=== PATIENT | male | born 1935 | race Caucasian/White ===

== ENCOUNTER 2017-09-16 21:21 | Inpatient (IN) | payer MEDICARE, OTHER ==
[~2017-09-16] VITALS: Ht 180.3 cm; Wt 91.2 kg
[2017-09-17] VITALS: BP 117/59
[2017-09-17] MEDS ORDERED: Norco 5mg/325mg tab ORAL PRN ×2 (02:15→08:15)
[2017-09-17] MEDS ORDERED: Azithromycin 500 MG in D5W 275 ML IV ONE (02:15)
[2017-09-17] MEDS ORDERED: Azithromycin 500mg Inj IV ONE (03:20)
[2017-09-17 04:00] VITALS: BP 104/60
[2017-09-17] MEDS ORDERED: ASPIRIN81 M3 PO (05:42)
[2017-09-17 08:00] VITALS: BP 103/67
[2017-09-17] MEDS ORDERED: BuPROPion SR 150mg tab ORAL SCH (09:00)
[2017-09-17 10:48] LABS: HEMATOCRIT 25.7 % (42.0-52.0); HEMOGLOBIN 8.6 G/DL (14.2-18.0); MEAN CORPUSCULAR VOLUME 94 FL (80-99); PLATELET COUNT 194 K/UL (150-450); RED BLOOD COUNT 2.74 M/UL (4.70-6.10); WHITE BLOOD COUNT 18.9 K/UL (4.8-10.8)
[2017-09-17] MEDS: Aspirin Baby 81mg ORAL SCH (10:51)
[2017-09-17 11:16] LABS: ALANINE AMINOTRANSFERASE 56 U/L (12-78); ALBUMIN 2.3 G/DL (3.4-5.0); ALBUMIN/GLOBULIN RATIO 0.5 (1.0-2.7); ALKALINE PHOSPHATASE 223 U/L (46-116); ANION GAP 9 mmol/L (5-15); ASPARTATE AMINO TRANSFERASE 66 U/L (15-37); BILIRUBIN,TOTAL 0.4 MG/DL (0.2-1.0); BLOOD UREA NITROGEN 53 mg/dL (7-18); CALCIUM 7.5 MG/DL (8.5-10.1); CARBON DIOXIDE 28 MMOL/L (21-32); CHLORIDE 100 MMOL/L (98-107); CREATININE 5.4 MG/DL (0.55-1.30); PHOSPHORUS 2.6 MG/DL (2.5-4.9); POTASSIUM 3.9 MMOL/L (3.5-5.1); SODIUM 136 MMOL/L (136-145)
[2017-09-17 12:00] VITALS: BP 110/63
[2017-09-17] MEDS ORDERED: Cefepime 1gm in D5W 55ml IVPB ONE (14:00)
[2017-09-17] MEDS: Heparin 5000 units/ml inj SUBQ SCH ×3 (14:00→20:53)
--- NOTE | 2017-09-17 15:10 | History & Physical ---
History and Physical History & Physicial Dictated for Int Med-Dr Mustafa no. [id number]. KARMA GUILLEN Sep 17, 2017 15:10
[2017-09-17 16:00] VITALS: BP 115/67
[2017-09-17] MEDS: BuPROPion XL 150mg tab ORAL SCH (17:56)
[2017-09-17] MEDS: Albuterol ud Inhalation HHN SCH ×2 (19:33→22:31)
[2017-09-17] MEDS ORDERED: GUAIFENESI100 MG/5 M ORAL (19:39)
[2017-09-17] MEDS ORDERED: RENVELA0.8 GM ORAL (19:39)
[2017-09-17] MEDS ORDERED: REFRESH TEARS15 ML OP (19:39)
[2017-09-17] MEDS ORDERED: TAMSULOSIN HCL0.4 MG ORAL (19:39)
[2017-09-17] MEDS ORDERED: DUONEB 0.5-3(2.53 ML HHN (19:39)
[2017-09-17] MEDS ORDERED: COSOPT1 DRO2 BOTH EYES (19:39)
[2017-09-17] MEDS ORDERED: BENZONATATE100 MG ORAL (19:39)
[2017-09-17] MEDS ORDERED: NON (19:39)
[2017-09-17] MEDS ORDERED: FAMOTIDINE20 MG ORAL (19:58)
[2017-09-17] MEDS ORDERED: ZEMPLAR1 MC1 ORAL (19:58)
[2017-09-17] MEDS ORDERED: BUPROPION XL150 MG ORAL (19:58)
[2017-09-17 20:00] VITALS: BP 108/67
--- NOTE | 2017-09-17 20:42 | Wound Care Consultation ---
Wound Assessment Wound Assessment : Wound Number: 1 Wound Present on Admission: Yes New Wound: No Status Change of Wound: No Wound Location Body Site Modif: left Wound Location Body Site: elbow Wound Type: traumatic injury Adilene Test: Does not Adilene Traumatic Injury Wounds: Skin Tear Wound Thickness: Partial Thickness Wound Length: 1.5 Wound Width: 3.0 Wound Depth: 0.1 Percent of Wound [place]/Red: 50 Percent of Wound Black/Brown: 50 - ry scab Wound Drainage Description: Serosanguineous Wound Drainage Amount: Scant Wound Drainage Odor: None/Absent Tissue Surrounding Wound: Erythemic Wound General Appearance: Reddened Wound Comment #1 Left elbow skin tear Recommendation -Local wound care per protocol -Keep clean and dry -Turn and reposition -Optimize nutrition -Offload both heels -Assess and f/u accordingly for any changes GHAZAL COLEMAN RN Sep 17, 2017 20:42
[2017-09-17] MEDS ORDERED: Tubing IV Secondary IV ONE (22:52)
[2017-09-17] MEDS ORDERED: NS 275ml ONE (22:52)
[2017-09-17] MEDS ORDERED: D5W 275ml ONE (22:52)
[2017-09-18] VITALS (7 sets, daily range): BP systolic 103–137; BP diastolic 55–92
--- NOTE | 2017-09-18 00:15 | History and Physical Report ---
DATE OF ADMISSION: 09/16/2017 CHIEF COMPLAINT: The patient is an 81-year-old, white male, who presents with chief complaint of shortness of breath and cough. HISTORY OF PRESENT ILLNESS: The patient was admitted to [facility] in August 2017. The patient was diagnosed with end-stage renal disease. The patient was started on hemodialysis. The patient has a Port-A-Cath in the right upper chest in place. The patient was a resident of [facility] [place]. The patient was undergoing therapy there. The patient began to experience extreme shortness of breath yesterday 09/16/2017. The patient also had a cough. The patient had hemodialysis scheduled yesterday 09/16/2017. The patient became hypotensive during dialysis. The patient was transported initially to [facility] emergency room. The patient was found to have a left lower lobe pneumonia. The patient is admitted to [facility] for insurance purposes. The patient is admitted for left lower lobe pneumonia. PAST MEDICAL HISTORY: Significant for: 1. Hypertension. 2. Newly diagnosed end-stage renal disease, on hemodialysis since mid August. PAST SURGICAL HISTORY: The patient denies. CURRENT MEDICATIONS: 1. Blood pressure medication of unknown dose. 2. Aspirin 81 mg one tablet p.o. daily. ALLERGIES: Ciprofloxacin. SOCIAL HISTORY: The patient is . The patient denies tobacco use having quit 30 years previously. The patient admits to rare alcohol use. The patient lives with his adult son. 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 REVIEW OF SYSTEMS: CONSTITUTIONAL: The patient denies weight loss or weight gain. The patient denies fevers or chills. HEENT: The patient denies ear or throat pain. The patient denies headache. CARDIOVASCULAR: The patient denies palpitations or chest pain. CHEST: The patient complains of shortness of breath as above. The patient denies wheezes. ABDOMEN: The patient denies nausea, vomiting, diarrhea, or constipation. GENITOURINARY: The patient denies dysuria or increased frequency of urination. NEUROMUSCULAR: The patient denies seizures or generalized weakness. PHYSICAL EXAMINATION: VITAL SIGNS: Temperature 97.7, respirations 19, pulse 74, and blood pressure 117/59. GENERAL: The patient is a well-developed, well-nourished, white male, in no apparent distress. HEENT: Eyes, pupils are equal and responsive to light and accommodation. Extraocular movements are intact. NECK: Supple without lymphadenopathy. CHEST: Wheezes in the right and left lower lung leyva, otherwise, clear to auscultation bilaterally without wheezes or rales. CARDIOVASCULAR: Regular rhythm and rate. S1 and S2 are normal without murmurs, rubs, or gallops. ABDOMEN: Soft, nontender, and nondistended. Positive bowel sounds. No evidence of hepatosplenomegaly. Currently, no rebound or guarding noted. EXTREMITIES: Negative for clubbing, cyanosis, or edema. RECTAL: Refused. GENITAL: Refused. NEUROLOGIC: Cranial nerves II through XII are grossly intact without focal deficits. Motor strength is 5/5 bilaterally. Deep tendon reflexes are 2+ plantar. LABORATORY AND DIAGNOSTIC DATA: WBC elevated at 18.9, hemoglobin 8.6, hematocrit 25.7, and platelets 194,000. Sodium 136, potassium 3.9, chloride 100, CO2 28, BUN 53, creatinine 5.4 and glucose 146. Chest x-ray from [place] revealed left lower lobe pneumonia. A repeat chest x-ray is pending. ASSESSMENT: This is an 81-year-old white male: 1. Left lower lobe pneumonia. 2. Shortness of breath. 3. End-stage renal disease, on hemodialysis. 4. Leukocytosis. 5. Hypertension. 6. Depression. TREATMENT: 1. Shortness of breath/left lower lobe pneumonia. The patient has been started empirically on azithromycin and Rocephin. A repeat chest x-ray is pending. The patient has been started on albuterol nebulized q.4 h. for wheezing. 2. End-stage renal disease. A Nephrology consultation has been obtained with Dr. Quan. The patient has a right central line in place. The patient will require dialysis on 09/19/2017. 3. Leukocytosis, probably secondary to pneumonia as above. 4. Hypertension. The patient is currently hypotensive. 5. Depression. Continue Wellbutrin and Remeron. Harry Flores M.D. DR: JOZEF JOB#: [id number] CC:
[2017-09-18] MEDS: Albuterol ud Inhalation HHN SCH ×6 (02:59→22:39)
[2017-09-18] MEDS: Heparin 5000 units/ml inj SUBQ SCH ×3 (05:23→21:06)
[2017-09-18] MEDS ORDERED: Benzonatate 100mg Perles ORAL PRN (06:45)
[2017-09-18] MEDS ORDERED: Albuterol/Ipratropium 3ml neb HHN PRN (06:45)
[2017-09-18 07:21] LABS: HEMATOCRIT 25.5 % (42.0-52.0); HEMOGLOBIN 8.4 G/DL (14.2-18.0); MEAN CORPUSCULAR VOLUME 94 FL (80-99); PLATELET COUNT 226 K/UL (150-450); RED CELL DISTRIBUTION WIDTH 13.2 % (11.6-14.8); WHITE BLOOD COUNT 18.6 K/UL (4.8-10.8)
[2017-09-18 07:45] LABS: ANION GAP 9 mmol/L (5-15); BLOOD UREA NITROGEN 71 mg/dL (7-18); CALCIUM 7.7 MG/DL (8.5-10.1); CARBON DIOXIDE 27 MMOL/L (21-32); CHLORIDE 101 MMOL/L (98-107); CREATININE 6.4 MG/DL (0.55-1.30); POTASSIUM 4.5 MMOL/L (3.5-5.1); SODIUM 137 MMOL/L (136-145)
[2017-09-18] MEDS ORDERED: Aspirin Baby 81mg ORAL SCH (09:00)
[2017-09-18] MEDS ORDERED: Paricalcitol 1mcg cap ORAL SCH (09:00)
[2017-09-18] MEDS: Cosopt Opth Soln 10 mL Btl BOTH EYES SCH ×2 (10:39→17:36)
[2017-09-18] MEDS: BuPROPion XL 150mg tab ORAL SCH (10:39)
[2017-09-18] MEDS: Renvela 800mg Pkt ORAL SCH ×3 (10:39→17:36)
[2017-09-18] MEDS: Tamsulosin 0.4mg cap ORAL SCH ×2 (10:39→17:36)
[2017-09-18] MEDS: Azithromycin 250mg tab ORAL SCH (10:40)
[2017-09-18] MEDS: Aspirin Baby 81mg ORAL SCH (10:40)
--- NOTE | 2017-09-18 13:07 | Consultation ---
Consult Note Consult Note Asked to evaluate patient for dialysis management, The patient is an 81-year-old, white male, who presents with chief complaint of shortness of breath and cough. The patient was admitted to [facility] in August 2017. The patient was diagnosed with end-stage renal disease. The patient was started on hemodialysis. The patient has a Perma Cath in the right upper chest in place. The patient was a resident of [facility]. The patient was undergoing therapy there. The patient began to experience extreme shortness of breath yesterday 09/16/2017. The patient also had a cough. The patient had hemodialysis scheduled yesterday 09/16/2017. The patient became hypotensive during dialysis. The patient was transported initially to [facility] emergency room. The patient was found to have a left lower lobe pneumonia. The patient is admitted to [facility] for insurance purposes. The patient is admitted for left lower lobe pneumonia. PAST MEDICAL HISTORY: 1. Hypertension. 2. Newly diagnosed end-stage renal disease, on hemodialysis since mid August. patient interviewed and examined data reviewed Assessment/Plan status: - End-stage renal disease, on hemodialysis. - Left lower lobe pneumonia. - Leukocytosis. - Hypertension. - Depression. Plan; HD in am- Adjust BP meds FU with CS ROMEL Donis Sep 18, 2017 13:07
--- NOTE | 2017-09-18 13:40 | Internal Med Progress Note ---
Subjective Date of Service: Sep 18, 2017 Physician Name Karma Guillen Attending Physician Dung Mustafa MD Current Medications Medications (Trade) Dose Ordered Sig/Jessica Route PRN Reason Start Time Stop Time Status Last Admin Dose Admin Acetaminophen (Tylenol) 650 mg Q6H PRN ORAL Mild Pain/Temp > 100.5 09/17/17 02:15 10/17/17 02:14 Acetaminophen/ Hydrocodone Bitart ([place] 5/325) 1 tab Q6H PRN ORAL Severe Pain (Pain Scale 4-10) 09/17/17 08:15 09/24/17 08:14 Albuterol Sulfate (Proventil) 2.5 mg Q4HRT HHN 09/17/17 19:00 09/22/17 18:59 09/18/17 11:24 Albuterol/ Ipratropium (Albuterol/ Ipratropium) 3 ml EVERY 4 HOURS PRN HHN Shortness of breath 09/18/17 06:45 09/23/17 06:44 Artificial Tears (Akwa-Tears) 2 drop Q2H PRN BOTH EYES Dry Eyes 09/18/17 12:15 10/18/17 12:14 Aspirin (ASA) 81 mg DAILY ORAL 09/17/17 09:00 10/17/17 08:59 09/18/17 10:40 Azithromycin (Zithromax) 250 mg DAILY ORAL 09/18/17 09:00 09/21/17 09:01 09/18/17 10:40 Benzonatate (Tessalon Perles) 100 mg THREE TIMES A DAY PRN ORAL For Cough 09/18/17 06:45 10/18/17 06:44 Bupropion HCl (Wellbutrin XL) 150 mg DAILY ORAL 09/17/17 18:00 10/17/17 17:59 09/18/17 10:39 Cefepime HCl 500 mg/Dextrose 55 ml @ 110 mls/hr QHS IVPB 09/18/17 21:00 09/25/17 20:59 Docusate Sodium (Colace) 100 mg THREE TIMES A DAY ORAL 09/18/17 18:00 10/18/17 17:59 Dorzolamide/ Timolol (Cosopt) 1 drop BID BOTH EYES 09/18/17 09:00 10/18/17 08:59 09/18/17 10:39 Epoetin Jerod (Procrit (for ESRD on dialysis)) 10,000 units MON-WED-FRI SUBQ 09/18/17 21:00 10/18/17 20:59 UNV Famotidine (Pepcid) 20 mg DAILY ORAL 09/18/17 09:00 10/18/17 08:59 09/18/17 10:39 Heparin Sodium (Porcine) (Heparin 5000 units/ml) 5,000 units EVERY 8 HOURS SUBQ 09/17/17 14:00 10/17/17 13:59 09/18/17 05:23 Mirtazapine (Remeron) 15 mg BEDTIME ORAL 09/17/17 21:00 10/17/17 20:59 09/17/17 20:43 Ondansetron HCl (Zofran) 4 mg Q4H PRN IVP Nausea & Vomiting 09/17/17 02:15 10/17/17 02:14 Sevelamer Carbonate (Renvela) 800 mg THREE TIMES A DAY ORAL 09/18/17 09:00 10/18/17 08:59 09/18/17 10:39 Tamsulosin HCl (Flomax) 0.4 mg BID ORAL 09/18/17 09:00 10/18/17 08:59 09/18/17 10:39 Allergies: Coded Allergies: CIPROFLOXACIN (Verified Allergy, Unknown, 09/17/17) PENICILLINS (Verified Allergy, Unknown, 09/17/17) ROS Limited/Unobtainable: No Constitutional: Reports: no symptoms HEENT: Reports: no symptoms Cardiovascular: Reports: no symptoms Respiratory: Reports: shortness of breath Gastrointestinal/Abdominal: Reports: no symptoms Genitourinary: Reports: no symptoms Neurologic/Psychiatric: Reports: no symptoms Subjective 81 YO M with shortness of breath. Now pneumonia. Cover for Int Anthony-Dr Mustafa. Objective Last Vital Signs Date Time Temp Pulse Resp B/P (MAP) Pulse Ox O2 Delivery O2 Flow Rate FiO2 09/18/17 12:11 97.3 62 22 103/55 97 Nasal Cannula 2.0 09/18/17 11:36 21 General Appearance: WD/WN, no apparent distress, alert, mild distress EENT: PERRL/EOMI, normal ENT inspection, TMs normal Neck: non-tender, normal alignment, supple, normal inspection Cardiovascular: normal peripheral pulses, normal rate, regular rhythm, no gallop/murmur, no JVD Respiratory/Chest: chest wall non-tender, no respiratory distress, no accessory muscle use, crackles/rales, rhonchi - bilaterally, expiratory wheezing Abdomen: normal bowel sounds, non tender, soft, no organomegaly, no mass Extremities: normal range of motion 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, no motor/sensory deficits Skin: normal pigmentation, warm/dry Laboratory Tests Test 09/18/17 05:00 White Blood Count 18.6 K/UL (4.8-10.8) H Red Blood Count 2.70 M/UL (4.70-6.10) L Hemoglobin 8.4 G/DL (14.2-18.0) L Hematocrit 25.5 % (42.0-52.0) L Mean Corpuscular Volume 94 FL (80-99) Mean Corpuscular Hemoglobin 31.1 PG (27.0-31.0) H Mean Corpuscular Hemoglobin Concent 33.0 G/DL (32.0-36.0) Red Cell Distribution Width 13.2 % (11.6-14.8) Platelet Count 226 K/UL (150-450) Mean Platelet Volume 8.2 FL (6.5-10.1) Neutrophils (%) (Auto) % (45.0-75.0) Lymphocytes (%) (Auto) % (20.0-45.0) Monocytes (%) (Auto) % (1.0-10.0) Eosinophils (%) (Auto) % (0.0-3.0) Basophils (%) (Auto) % (0.0-2.0) Differential Total Cells Counted 100 Neutrophils % (Manual) 74 % (45-75) Lymphocytes % (Manual) 6 % (20-45) L Monocytes % (Manual) 16 % (1-10) H Eosinophils % (Manual) 0 % (0-3) Basophils % (Manual) 0 % (0-2) Band Neutrophils 4 % (0-8) Platelet Estimate Adequate Platelet Morphology Normal Hypochromasia 2+ Anisocytosis 1+ Spherocytes 1+ Sodium Level 137 MMOL/L (136-145) Potassium Level 4.5 MMOL/L (3.5-5.1) Chloride Level 101 MMOL/L (98-107) Carbon Dioxide Level 27 MMOL/L (21-32) Anion Gap 9 mmol/L (5-15) Blood Urea Nitrogen 71 mg/dL (7-18) H Creatinine 6.4 MG/DL (0.55-1.30) H Estimat Glomerular Filtration Rate mL/min (>60) Glucose Level 137 MG/DL (74-106) H Hemoglobin A1c Pending Calcium Level 7.7 MG/DL (8.5-10.1) L Phosphorus Level Pending Magnesium Level Pending Ferritin Pending Vitamin B12 Level Pending Folate Pending Microbiology Date/Time Source Procedure Growth Status 09/17/17 03:10 Nasal Nares Influenza Types A,B Antigen (ZACARIAS) - Final Complete Intake and Output 09/17/17 09/18/17 19:00 07:00 Intake Total 840 ml 300 ml Output Total 800 ml 550 ml Balance 40 ml -250 ml Intake Oral 840 ml 300 ml Output Urine Total 800 ml 550 ml Assessment/Plan Problem List: (1) Shortness of breath (2) ESRD (end stage renal disease) on dialysis (3) Leukocytosis Assessment & Plan: Improving. cont abx (4) HTN (hypertension) (5) Depression Assessment & Plan: Continue mirtazipime (6) Pneumonia Assessment & Plan: Continue cefepime and azithro. KARMA GUILLEN Sep 18, 2017 13:40
[2017-09-18 14:13] LABS: PHOSPHORUS 3.7 MG/DL (2.5-4.9)
[2017-09-18] MEDS ORDERED: Magnesium Citrate Liq Btl ORAL ONE (14:30)
[2017-09-18] MEDS: Artificial Tears 1.4% Op Soln BOTH EYES PRN (17:36)
[2017-09-18] MEDS: Docusate 100mg cap ORAL SCH (17:36)
[2017-09-18] MEDS: Epogen (for ESRD on dialysis) SUBQ SCH (21:02)
[2017-09-18] MEDS: Cefepime HCl 500 MG in D5W 55 ML IVPB SCH (21:03)
[2017-09-19] MEDS: Albuterol ud Inhalation HHN SCH ×6 (03:22→23:29)
[2017-09-19 04:00] VITALS: BP 137/68
[2017-09-19] MEDS: Heparin 5000 units/ml inj SUBQ SCH ×3 (05:01→22:28)
[2017-09-19 07:40] LABS: ANION GAP 10 mmol/L (5-15); BLOOD UREA NITROGEN 77 mg/dL (7-18); CARBON DIOXIDE 25 MMOL/L (21-32); CHLORIDE 101 MMOL/L (98-107); CHOLESTEROL 139 MG/DL (< 200); PHOSPHORUS 2.6 MG/DL (2.5-4.9); SODIUM 136 MMOL/L (136-145)
[2017-09-19 07:53] LABS: % IRON SATURATION 38 % (15-50); IRON 70 ug/dL (50-175); TOTAL IRON BINDING CAPACITY 184 ug/dL (250-450)
[2017-09-19 08:20] VITALS: BP 133/77
[2017-09-19] MEDS: Cosopt Opth Soln 10 mL Btl BOTH EYES SCH ×2 (09:57→17:47)
[2017-09-19] MEDS: BuPROPion XL 150mg tab ORAL SCH (09:58)
[2017-09-19] MEDS: Tamsulosin 0.4mg cap ORAL SCH ×2 (09:58→17:47)
[2017-09-19] MEDS: Aspirin Baby 81mg ORAL SCH (09:58)
[2017-09-19] MEDS: Docusate 100mg cap ORAL SCH ×3 (09:58→17:47)
[2017-09-19] MEDS: Azithromycin 250mg tab ORAL SCH (09:58)
[2017-09-19 11:45] VITALS: BP 142/70
[2017-09-19 16:00] VITALS: BP 115/72
--- NOTE | 2017-09-19 16:08 | Nephrology Progress Note ---
Assessment/Plan Problem List: (1) ESRD (end stage renal disease) on dialysis (2) HTN (hypertension) (3) Pneumonia (4) Depression Assessment status: - End-stage renal disease, on hemodialysis. - Left lower lobe pneumonia. - Leukocytosis. - Hypertension. - Depression. Plan Plan; HD today, done Adjust BP meds continue per consultants FU with CS MDs Subjective ROS Limited/Unobtainable: No Constitutional: Reports: malaise, weakness Objective Objective Last 24 Hour Vital Signs Date Time Temp Pulse Resp B/P (MAP) Pulse Ox O2 Delivery O2 Flow Rate FiO2 09/19/17 14:54 68 20 99 Room Air 09/19/17 14:43 67 18 98 Room Air 09/19/17 11:46 Room Air 09/19/17 11:45 97.0 69 20 142/70 96 Room Air 09/19/17 10:57 Room Air 09/19/17 10:55 Room Air 09/19/17 08:30 Room Air 09/19/17 08:20 62 22 133/77 96 Room Air 09/19/17 07:48 65 20 97 Room Air 09/19/17 07:41 21 09/19/17 07:40 65 20 97 Room Air 09/19/17 07:39 97 Room Air 09/19/17 07:39 Room Air 09/19/17 04:00 97.2 65 20 137/68 98 Room Air 09/19/17 03:31 66 18 97 Room Air 09/19/17 03:22 60 20 94 Room Air 09/18/17 23:13 97.3 65 18 127/69 97 Room Air 09/18/17 22:47 85 18 Room Air 21 09/18/17 22:39 82 20 95 Room Air 21 09/18/17 19:53 97.6 59 18 118/67 94 Room Air 09/18/17 19:08 88 18 Room Air 21 09/18/17 19:03 Room Air 09/18/17 18:56 84 20 95 Room Air 21 09/18/17 18:55 95 Room Air 21 09/18/17 16:15 97.9 62 21 106/55 99 Room Air Intake and Output 09/18/17 09/19/17 19:00 07:00 Intake Total 1200 ml 535 ml Output Total 1200 ml 1400 ml Balance 0 ml -865 ml Intake Oral 1200 ml 480 ml IV Total 55 ml Output Urine Total 1200 ml 1400 ml # Bowel Movements 1 Laboratory Tests 09/19/17 06:35: Prothrombin Time 10.0, Prothromb Time International Ratio 1.0, Activated Partial Thromboplast Time 28, Sodium Level 136, Potassium Level 4.0, Chloride Level 101, Carbon Dioxide Level 25, Anion Gap 10, Blood Urea Nitrogen 77H, Creatinine 6.0H, Estimat Glomerular Filtration Rate , Glucose Level 142H, Calcium Level 8.0L, Phosphorus Level 2.6, Magnesium Level 2.6H, Iron Level 70, Total Iron Binding Capacity 184L, Percent Iron Saturation 38, Unsaturated Iron Binding 114, Cholesterol Level 139 Height (Feet): 5 Height (Inches): 11.00 Weight (Pounds): 201 General Appearance: no apparent distress, lethargic Cardiovascular: normal rate Respiratory/Chest: decreased breath sounds Abdomen: soft ROMEL RAJAN Sep 19, 2017 16:08
--- NOTE | 2017-09-19 17:09 | Cardiology Report ---
APPROVED REPORT EKG Measurement Heart [id number] MI [id number] Sinus rhythm with 1st degree AV block Otherwise normal ECG
--- NOTE | 2017-09-19 17:37 | Diagnostic Imaging Report ---
Indication: Dyspnea Technique: XRAY Chest 2v Comparison: None Findings: Heart size and mediastinal contours are within normal limits given technique. Right internal jugular vein approach tunneled dialysis catheter tip in the lower SVC. There is no focal consolidation, pneumothorax or pleural effusion. Osseous structures demonstrate no acute abnormality. Impression: No radiographic evidence of acute cardiopulmonary disease. Dialysis catheter in place.
--- NOTE | 2017-09-19 17:37 | Consultation ---
History of Present Illness General Date patient seen: Sep 19, 2017 Reason for Consultation: dyspnea Present Illness HPI 81 year old male with hx of prostate cancer, HTN, ESRD started on HD , s/p perma cath R upper chest, was taken by paramedics to [facility] with CC of SOB and cough while on rehab facility. He became hypotensive during HD. He was diagnosed with LLL PNA, nhe is [place] [facility] [place]. Allergies: Coded Allergies: CIPROFLOXACIN (Verified Allergy, Unknown, 09/17/17) PENICILLINS (Verified Allergy, Unknown, 09/20/17) tolareted Cefepime Sep 2017 Medication History Scheduled Aspirin (Aspirin), 81 MG PO DAILY, (Reported) Bupropion Xl* (Bupropion Xl*), 150 MG ORAL Q24H, (Reported) Famotidine (Famotidine), 20 MG ORAL DAILY, (Reported) Paricalcitol (Zemplar), 1 MCG ORAL DAILY, (Reported) Sevelamer Carbonate* (Renvela*), 800 MG ORAL THREE TIMES A DAY, (Reported) Tamsulosin Hcl (Tamsulosin Hcl*), 0.4 MG ORAL BID, (Reported) Scheduled PRN Benzonatate* (Benzonatate*), 100 MG ORAL THREE TIMES A DAY PRN for For Cough, ( Reported) Guaifenesin* (Guaifenesin), 10 ML ORAL Q4H PRN for For Cough, (Reported) Ipratropium/Albuterol Sulfate (DuoNeb 0.5-3(2.5)mg/3ml), 3 ML HHN EVERY 4 HOURS PRN for Shortness of breath, (Reported) Miscellaneous Medications Carboxymethylcellulose Sodium (Refresh Tears), 15 ML OP, (Reported) Dorzolamide HCl/Timolol Maleat (Dorzolamide-Timolol Eye Drops), 1 DROP BOTH EYES , (Reported) [Non], (Reported) Patient History Healthcare decision maker Norman cadet(son) [phone] Resuscitation status Full Code Advanced Directive on File Past Medical/Surgical History Past Medical/Surgical History: (1) Prostate cancer (2) ESRD (end stage renal disease) on dialysis (3) Depression (4) HTN (hypertension) Review of Systems All Other Systems: negative except mentioned in HPI Physical Exam General Appearance: WD/WN Lines, tubes and drains: peripheral HEENT: normocephalic, atraumatic Neck: non-tender, normal alignment Respiratory/Chest: chest wall non-tender, lungs clear Breasts: no masses Abdomen: normal bowel sounds Genitourinary/Rectal: normal genital exam Extremities: normal range of motion Skin Exam: normal pigmentation 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 Last 24 Hour Vital Signs Date Time Temp Pulse Resp B/P (MAP) Pulse Ox O2 Delivery O2 Flow Rate FiO2 09/19/17 16:00 98.0 68 18 115/72 09/19/17 14:54 68 20 99 Room Air 21 09/19/17 14:43 67 18 98 Room Air 09/19/17 11:46 Room Air 09/19/17 11:45 97.0 69 20 142/70 96 Room Air 09/19/17 10:57 Room Air 09/19/17 10:55 Room Air 09/19/17 08:30 Room Air 09/19/17 08:20 62 22 133/77 96 Room Air 09/19/17 07:48 65 20 97 Room Air 09/19/17 07:41 21 09/19/17 07:40 65 20 97 Room Air 09/19/17 07:39 97 Room Air 09/19/17 07:39 Room Air 09/19/17 04:00 97.2 65 20 137/68 98 Room Air 09/19/17 03:31 66 18 97 Room Air 09/19/17 03:22 60 20 94 Room Air 21 09/18/17 23:13 97.3 65 18 127/69 97 Room Air 09/18/17 22:47 85 18 Room Air 21 09/18/17 22:39 82 20 95 Room Air 21 09/18/17 19:53 97.6 59 18 118/67 94 Room Air 09/18/17 19:08 88 18 Room Air 21 09/18/17 19:03 Room Air 21 09/18/17 18:56 84 20 95 Room Air 21 09/18/17 18:55 95 Room Air 21 Intake and Output 09/18/17 09/19/17 19:00 07:00 Intake Total 1200 ml 535 ml Output Total 1200 ml 1400 ml Balance 0 ml -865 ml Intake Oral 1200 ml 480 ml IV Total 55 ml Output Urine Total 1200 ml 1400 ml # Bowel Movements 1 Laboratory Tests Test 09/19/17 06:35 Prothrombin Time 10.0 SEC (9.30-11.50) Prothromb Time International Ratio 1.0 (0.9-1.1) Activated Partial Thromboplast Time 28 SEC (23-33) Sodium Level 136 MMOL/L (136-145) Potassium Level 4.0 MMOL/L (3.5-5.1) Chloride Level 101 MMOL/L (98-107) Carbon Dioxide Level 25 MMOL/L (21-32) Anion Gap 10 mmol/L (5-15) Blood Urea Nitrogen 77 mg/dL (7-18) H Creatinine 6.0 MG/DL (0.55-1.30) H Estimat Glomerular Filtration Rate mL/min (>60) Glucose Level 142 MG/DL (74-106) H Calcium Level 8.0 MG/DL (8.5-10.1) L Phosphorus Level 2.6 MG/DL (2.5-4.9) Magnesium Level 2.6 MG/DL (1.8-2.4) H Iron Level 70 ug/dL (50-175) Total Iron Binding Capacity 184 ug/dL (250-450) L Percent Iron Saturation 38 % (15-50) Unsaturated Iron Binding 114 ug/dL (112-346) Cholesterol Level 139 MG/DL (< 200) Height (Feet): 5 Height (Inches): 11.00 Weight (Pounds): 201 Medications Current Medications Medications (Trade) Dose Ordered Sig/Jessica Route PRN Reason Start Time Stop Time Status Last Admin Dose Admin Acetaminophen (Tylenol) 650 mg Q6H PRN ORAL Mild Pain/Temp > 100.5 09/17/17 02:15 10/17/17 02:14 Acetaminophen/ Hydrocodone Bitart ([place] 5/325) 1 tab Q6H PRN ORAL Severe Pain (Pain Scale 4-10) 09/17/17 08:15 09/24/17 08:14 Albuterol Sulfate (Proventil) 2.5 mg Q4HRT HHN 09/17/17 19:00 09/22/17 18:59 09/19/17 14:42 Albuterol/ Ipratropium (Albuterol/ Ipratropium) 3 ml EVERY 4 HOURS PRN HHN Shortness of breath 09/18/17 06:45 09/23/17 06:44 Artificial Tears (Akwa-Tears) 2 drop Q2H PRN BOTH EYES Dry Eyes 09/18/17 12:15 10/18/17 12:14 09/18/17 17:36 Aspirin (ASA) 81 mg DAILY ORAL 09/17/17 09:00 10/17/17 08:59 09/19/17 09:58 Azithromycin (Zithromax) 250 mg DAILY ORAL 09/18/17 09:00 09/21/17 09:01 09/19/17 09:58 Benzonatate (Tessalon Perles) 100 mg THREE TIMES A DAY PRN ORAL For Cough 09/18/17 06:45 10/18/17 06:44 Bupropion HCl (Wellbutrin XL) 150 mg DAILY ORAL 09/17/17 18:00 10/17/17 17:59 09/19/17 09:58 Cefepime HCl 500 mg/Dextrose 55 ml @ 110 mls/hr QHS IVPB 09/18/17 21:00 09/25/17 20:59 09/18/17 21:03 Docusate Sodium (Colace) 100 mg THREE TIMES A DAY ORAL 09/18/17 18:00 10/18/17 17:59 09/19/17 13:25 Dorzolamide/ Timolol (Cosopt) 1 drop BID BOTH EYES 09/18/17 09:00 10/18/17 08:59 09/19/17 09:57 Epoetin Jerod (Procrit (for ESRD on dialysis)) 10,000 units MON-MON-MON SUBQ 09/18/17 21:00 10/18/17 20:59 09/18/17 21:02 Famotidine (Pepcid) 20 mg DAILY ORAL 09/18/17 09:00 10/18/17 08:59 09/19/17 09:58 Heparin Sodium (Porcine) (Heparin 5000 units/ml) 5,000 units EVERY 8 HOURS SUBQ 09/17/17 14:00 10/17/17 13:59 09/19/17 13:28 Mirtazapine (Remeron) 15 mg BEDTIME ORAL 09/17/17 21:00 10/17/17 20:59 09/18/17 21:02 Ondansetron HCl (Zofran) 4 mg Q4H PRN IVP Nausea & Vomiting 09/17/17 02:15 10/17/17 02:14 Sevelamer Carbonate (Renvela) 800 mg THREE TIMES A DAY ORAL 09/18/17 18:00 10/18/17 17:59 09/19/17 13:25 Tamsulosin HCl (Flomax) 0.4 mg BID ORAL 09/18/17 09:00 10/18/17 08:59 09/19/17 09:58 Assessment/Plan Problem List: (1) Pneumonia ICD Codes: J18.9 - Pneumonia, unspecified organism SNOMED: 369738577 (2) ESRD (end stage renal disease) on dialysis ICD Codes: N18.6 - End stage renal disease; Z99.2 - Dependence on renal dialysis SNOMED: 885339121 (3) HTN (hypertension) ICD Codes: I10 - Essential (primary) hypertension SNOMED: 86221143 (4) Depression ICD Codes: F32.9 - Major depressive disorder, single episode, unspecified SNOMED: 20077576 (5) Prostate cancer ICD Codes: C61 - Malignant neoplasm of prostate SNOMED: 068715748 Assessment/Plan iv abx check cultures f/u wbc respiratory treatment dvt prophylaxis PENNIE CHAMBERLAIN Sep 19, 2017 17:37
--- NOTE | 2017-09-19 18:12 | Internal Med Progress Note ---
Subjective Date of Service: Sep 19, 2017 Physician Name Karma Guillen Attending Physician Dung Mustafa MD Current Medications Medications (Trade) Dose Ordered Sig/Jessica Route PRN Reason Start Time Stop Time Status Last Admin Dose Admin Acetaminophen (Tylenol) 650 mg Q6H PRN ORAL Mild Pain/Temp > 100.5 09/17/17 02:15 10/17/17 02:14 Acetaminophen/ Hydrocodone Bitart ([place] 5/325) 1 tab Q6H PRN ORAL Severe Pain (Pain Scale 4-10) 09/17/17 08:15 09/24/17 08:14 Albuterol Sulfate (Proventil) 2.5 mg Q4HRT HHN 09/17/17 19:00 09/22/17 18:59 09/19/17 14:42 Albuterol/ Ipratropium (Albuterol/ Ipratropium) 3 ml EVERY 4 HOURS PRN HHN Shortness of breath 09/18/17 06:45 09/23/17 06:44 Artificial Tears (Akwa-Tears) 2 drop Q2H PRN BOTH EYES Dry Eyes 09/18/17 12:15 10/18/17 12:14 09/18/17 17:36 Aspirin (ASA) 81 mg DAILY ORAL 09/17/17 09:00 10/17/17 08:59 09/19/17 09:58 Azithromycin (Zithromax) 250 mg DAILY ORAL 09/18/17 09:00 09/21/17 09:01 09/19/17 09:58 Benzonatate (Tessalon Perles) 100 mg THREE TIMES A DAY PRN ORAL For Cough 09/18/17 06:45 10/18/17 06:44 Bupropion HCl (Wellbutrin XL) 150 mg DAILY ORAL 09/17/17 18:00 10/17/17 17:59 09/19/17 09:58 Cefepime HCl 500 mg/Dextrose 55 ml @ 110 mls/hr QHS IVPB 09/18/17 21:00 09/25/17 20:59 09/18/17 21:03 Docusate Sodium (Colace) 100 mg THREE TIMES A DAY ORAL 09/18/17 18:00 10/18/17 17:59 09/19/17 17:47 Dorzolamide/ Timolol (Cosopt) 1 drop BID BOTH EYES 09/18/17 09:00 10/18/17 08:59 09/19/17 17:47 Epoetin Jerod (Procrit (for ESRD on dialysis)) 10,000 units MON-MON-MON SUBQ 09/18/17 21:00 10/18/17 20:59 09/18/17 21:02 Famotidine (Pepcid) 20 mg DAILY ORAL 09/18/17 09:00 10/18/17 08:59 09/19/17 09:58 Heparin Sodium (Porcine) (Heparin 5000 units/ml) 5,000 units EVERY 8 HOURS SUBQ 09/17/17 14:00 10/17/17 13:59 09/19/17 13:28 Mirtazapine (Remeron) 15 mg BEDTIME ORAL 09/17/17 21:00 10/17/17 20:59 09/18/17 21:02 Ondansetron HCl (Zofran) 4 mg Q4H PRN IVP Nausea & Vomiting 09/17/17 02:15 10/17/17 02:14 Sevelamer Carbonate (Renvela) 800 mg THREE TIMES A DAY ORAL 09/18/17 18:00 10/18/17 17:59 09/19/17 17:47 Tamsulosin HCl (Flomax) 0.4 mg BID ORAL 09/18/17 09:00 10/18/17 08:59 09/19/17 17:47 Allergies: Coded Allergies: CIPROFLOXACIN (Verified Allergy, Unknown, 09/17/17) PENICILLINS (Verified Allergy, Unknown, 09/17/17) ROS Limited/Unobtainable: No Constitutional: Reports: no symptoms HEENT: Reports: no symptoms Cardiovascular: Reports: no symptoms Respiratory: Reports: shortness of breath Gastrointestinal/Abdominal: Reports: no symptoms Genitourinary: Reports: no symptoms Neurologic/Psychiatric: Reports: no symptoms Subjective 81 YO M with shortness of breath. Now pneumonia. Cover for [facility]-Dr Mustafa. Objective Last Vital Signs Date Time Temp Pulse Resp B/P (MAP) Pulse Ox O2 Delivery O2 Flow Rate FiO2 09/19/17 16:00 98.0 68 18 115/72 09/19/17 14:54 99 Room Air 21 09/18/17 12:11 2.0 Laboratory Tests Test 09/19/17 06:35 Prothrombin Time 10.0 SEC (9.30-11.50) Prothromb Time International Ratio 1.0 (0.9-1.1) Activated Partial Thromboplast Time 28 SEC (23-33) Sodium Level 136 MMOL/L (136-145) Potassium Level 4.0 MMOL/L (3.5-5.1) Chloride Level 101 MMOL/L (98-107) Carbon Dioxide Level 25 MMOL/L (21-32) Anion Gap 10 mmol/L (5-15) Blood Urea Nitrogen 77 mg/dL (7-18) H Creatinine 6.0 MG/DL (0.55-1.30) H Estimat Glomerular Filtration Rate mL/min (>60) Glucose Level 142 MG/DL (74-106) H Calcium Level 8.0 MG/DL (8.5-10.1) L Phosphorus Level 2.6 MG/DL (2.5-4.9) Magnesium Level 2.6 MG/DL (1.8-2.4) H Iron Level 70 ug/dL (50-175) Total Iron Binding Capacity 184 ug/dL (250-450) L Percent Iron Saturation 38 % (15-50) Unsaturated Iron Binding 114 ug/dL (112-346) Cholesterol Level 139 MG/DL (< 200) Microbiology Date/Time Source Procedure Growth Status 09/17/17 03:10 Nasal Nares Influenza Types A,B Antigen (ZACARIAS) - Final Complete 09/17/17 01:20 Nasal Nares MRSA Culture - Final NO METHICILLIN RESISTANT STAPH AUREUS... Complete 09/17/17 01:20 Rectum VRE Culture - Final Enterococcus Faecium - Vre Complete Intake and Output 09/18/17 09/19/17 19:00 07:00 Intake Total 1200 ml 535 ml Output Total 1200 ml 1400 ml Balance 0 ml -865 ml Intake Oral 1200 ml 480 ml IV Total 55 ml Output Urine Total 1200 ml 1400 ml # Bowel Movements 1 Objective General Appearance: WD/WN, no apparent distress, alert, mild distress EENT: PERRL/EOMI, normal ENT inspection, TMs normal Neck: non-tender, normal alignment, supple, normal inspection Cardiovascular: normal peripheral pulses, normal rate, regular rhythm, no gallop/murmur, no JVD Respiratory/Chest: chest wall non-tender, no respiratory distress, no accessory muscle use, crackles/rales, rhonchi - bilaterally, expiratory wheezing Abdomen: normal bowel sounds, non tender, soft, no organomegaly, no mass Extremities: normal range of motion 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 cont abx (4) HTN (hypertension) (5) Depression Assessment & Plan: Continue mirtazipime (6) Pneumonia Assessment & Plan: Continue cefepime and azithro. Status: unchanged KARMA GUILLEN Sep 19, 2017 18:12
[2017-09-19 20:00] VITALS: BP 146/72
[2017-09-19] MEDS: Cefepime HCl 500 MG in D5W 55 ML IVPB SCH (22:27)
[2017-09-20] VITALS (7 sets, daily range): BP systolic 123–153; BP diastolic 56–79
[2017-09-20] MEDS: Albuterol ud Inhalation HHN SCH ×6 (04:02→23:00)
[2017-09-20] MEDS: Heparin 5000 units/ml inj SUBQ SCH ×4 (05:36→21:51)
[2017-09-20 06:33] LABS: APPEARANCE,URINE CLEAR; BILIRUBIN, URINE NEGATIVE (NEGATIVE); COLOR,URINE PALE YELLOW; GLUCOSE, URINE (UA) 1+ (NEGATIVE); KETONES,URINE NEGATIVE (NEGATIVE); LEUKOCYTE ESTERASE ,URINE NEGATIVE (NEGATIVE); NITRITE,URINE NEGATIVE (NEGATIVE); PH,URINE 9 (4.5-8.0); PROTEIN,URINE 2+ (NEGATIVE); UROBILINOGEN,URINE NORMAL MG/DL (0.0-1.0)
[2017-09-20 07:34] LABS: BASOPHILS % (AUTO) 1.1 % (0.0-2.0); EOSINOPHILS % (AUTO) 1.8 % (0.0-3.0); HEMATOCRIT 26.5 % (42.0-52.0); HEMOGLOBIN 8.5 G/DL (14.2-18.0); LYMPHOCYTES % (AUTO) 11.9 % (20.0-45.0); MEAN CORPUSCULAR VOLUME 96 FL (80-99); NEUTROPHILS % (AUTO) 75.2 % (45.0-75.0); PLATELET COUNT 275 K/UL (150-450); RED BLOOD COUNT 2.74 M/UL (4.70-6.10); RED CELL DISTRIBUTION WIDTH 13.6 % (11.6-14.8); WHITE BLOOD COUNT 14.8 K/UL (4.8-10.8)
[2017-09-20 07:59] LABS: ALANINE AMINOTRANSFERASE 41 U/L (12-78); ALBUMIN 2.3 G/DL (3.4-5.0); ALBUMIN/GLOBULIN RATIO 0.6 (1.0-2.7); ALKALINE PHOSPHATASE 157 U/L (46-116); ANION GAP 6 mmol/L (5-15); ASPARTATE AMINO TRANSFERASE 34 U/L (15-37); BILIRUBIN,TOTAL 0.4 MG/DL (0.2-1.0); BLOOD UREA NITROGEN 44 mg/dL (7-18); CALCIUM 7.7 MG/DL (8.5-10.1); CARBON DIOXIDE 32 MMOL/L (21-32); CHLORIDE 104 MMOL/L (98-107); CREATININE 4.5 MG/DL (0.55-1.30); LACTATE DEHYDROGENASE 213 U/L (81-234); POTASSIUM 3.7 MMOL/L (3.5-5.1); SODIUM 142 MMOL/L (136-145)
[2017-09-20 08:05] LABS: CREATINE KINASE 24 U/L (26-308)
[2017-09-20 08:32] LABS: % IRON SATURATION 33 % (15-50); IRON 59 ug/dL (50-175); TOTAL IRON BINDING CAPACITY 178 ug/dL (250-450)
[2017-09-20] MEDS: Artificial Tears 1.4% Op Soln BOTH EYES PRN (08:47)
[2017-09-20] MEDS: Cosopt Opth Soln 10 mL Btl BOTH EYES SCH ×2 (08:49→17:37)
[2017-09-20] MEDS: BuPROPion XL 150mg tab ORAL SCH (09:00)
[2017-09-20] MEDS: Azithromycin 250mg tab ORAL SCH (09:00)
[2017-09-20] MEDS: Aspirin Baby 81mg ORAL SCH (09:00)
[2017-09-20] MEDS: Tamsulosin 0.4mg cap ORAL SCH ×2 (09:00→17:36)
[2017-09-20] MEDS: Docusate 100mg cap ORAL SCH ×3 (09:00→18:00)
--- NOTE | 2017-09-20 12:04 | Consultation ---
History of Present Illness General Date patient seen: Sep 20, 2017 Time patient seen: 12:02 Present Illness HPI 81 y/o M with hx of HTN, MDD, recent ESRD started on HD on Mid Aug 2017 (at [facility]), s/p perma cath R upper chest, transferred here on 09/17 with SOB and cough while on rehab facility. He became hypotensive during HD. Taken initially to ED [facility] and diagnosed with LLL PNA, patient transfer here due to insurance issues. Afebrile luekocytosis to 18, now improvng. CXR here wtih no acute process, On Vanco adn Cefepime. Allergies: Coded Allergies: CIPROFLOXACIN (Verified Allergy, Unknown, 09/17/17) PENICILLINS (Verified Allergy, Unknown, 09/20/17) tolareted Cefepime Sep 2017 Medication History Scheduled Aspirin (Aspirin), 81 MG PO DAILY, (Reported) Bupropion Xl* (Bupropion Xl*), 150 MG ORAL Q24H, (Reported) Famotidine (Famotidine), 20 MG ORAL DAILY, (Reported) Paricalcitol (Zemplar), 1 MCG ORAL DAILY, (Reported) Sevelamer Carbonate* (Renvela*), 800 MG ORAL THREE TIMES A DAY, (Reported) Tamsulosin Hcl (Tamsulosin Hcl*), 0.4 MG ORAL BID, (Reported) Scheduled PRN Benzonatate* (Benzonatate*), 100 MG ORAL THREE TIMES A DAY PRN for For Cough, ( Reported) Guaifenesin* (Guaifenesin), 10 ML ORAL Q4H PRN for For Cough, (Reported) Ipratropium/Albuterol Sulfate (DuoNeb 0.5-3(2.5)mg/3ml), 3 ML HHN EVERY 4 HOURS PRN for Shortness of breath, (Reported) Miscellaneous Medications Carboxymethylcellulose Sodium (Refresh Tears), 15 ML OP, (Reported) Dorzolamide HCl/Timolol Maleat (Dorzolamide-Timolol Eye Drops), 1 DROP BOTH EYES , (Reported) [Non], (Reported) Patient History Healthcare decision maker Norman cadet(son) [phone] Resuscitation status Full Code Advanced Directive on File Patient History Narrative PHx: as above Shx: The patient is . The patient denies tobacco use having quit 30 years previously. The patient admits to rare alcohol use. The patient lives with his adult son. 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 Fhx: non contributory Review of Systems ROS Narrative As per HPI, otherwise negative Physical Exam Physical Exam Narrative GENERAL: The patient is a well-developed, well-nourished, white male, in no apparent distress. HEENT: Eyes, pupils are equal and responsive to light and accommodation. Extraocular movements are intact. NECK: Supple without lymphadenopathy. CHEST: Wheezes in the right and left lower lung leyva CARDIOVASCULAR: Regular rhythm and rate. S1 and S2 are normal without murmurs, rubs, or gallops. ABDOMEN: Soft, nontender, and nondistended. Positive bowel sounds. No evidence of hepatosplenomegaly. Currently, no rebound or guarding noted. EXTREMITIES: Negative for clubbing, cyanosis, or edema. R chest ruslan cath ihn place , no signs of infection NEUROLOGIC: Cranial nerves II through XII are grossly intact without focal deficits. Motor strength is 5/5 bilaterally. Deep tendon reflexes are 2+ plantar. Last 24 Hour Vital Signs Date Time Temp Pulse Resp B/P (MAP) Pulse Ox O2 Delivery O2 Flow Rate FiO2 09/20/17 11:07 61 18 99 Room Air 21 09/20/17 11:00 60 18 97 Room Air 09/20/17 08:56 97.5 76 20 123/67 94 09/20/17 08:00 97.7 69 20 130/56 94 09/20/17 07:05 74 18 99 Room Air 21 09/20/17 07:05 95 Room Air 09/20/17 07:05 Room Air 09/20/17 07:00 72 18 94 Room Air 21 09/20/17 04:06 69 18 99 Room Air 21 09/20/17 04:02 63 18 94 Room Air 21 09/20/17 04:00 98.4 64 20 139/73 98 09/20/17 00:00 97.4 72 18 153/79 95 09/19/17 23:36 75 20 99 Room Air 21 09/19/17 23:29 66 18 98 Room Air 21 09/19/17 20:27 71 20 99 Room Air 21 09/19/17 20:17 95 Room Air 21 09/19/17 20:17 Room Air 09/19/17 20:16 71 18 98 Room Air 21 09/19/17 20:00 97.6 74 18 146/72 95 09/19/17 16:00 98.0 68 18 115/72 09/19/17 14:54 68 20 99 Room Air 21 09/19/17 14:43 67 18 98 Room Air 21 Intake and Output 09/19/17 09/20/17 19:00 07:00 Intake Total 1000 ml Output Total 2400 ml 1000 ml Balance -1400 ml -1000 ml Intake Oral 1000 ml Output Urine Total 1200 ml 1000 ml Hemodialysis UF 1200 ml # Bowel Movements 1 Laboratory Tests Test 09/20/17 04:25 09/20/17 04:30 09/20/17 04:40 White Blood Count 14.8 K/UL (4.8-10.8) H Red Blood Count 2.74 M/UL (4.70-6.10) L Hemoglobin 8.5 G/DL (14.2-18.0) L Hematocrit 26.5 % (42.0-52.0) L Mean Corpuscular Volume 96 FL (80-99) Mean Corpuscular Hemoglobin 31.0 PG (27.0-31.0) Mean Corpuscular Hemoglobin Concent 32.1 G/DL (32.0-36.0) Red Cell Distribution Width 13.6 % (11.6-14.8) Platelet Count 275 K/UL (150-450) Mean Platelet Volume 7.5 FL (6.5-10.1) Neutrophils (%) (Auto) 75.2 % (45.0-75.0) H Lymphocytes (%) (Auto) 11.9 % (20.0-45.0) L Monocytes (%) (Auto) 10.0 % (1.0-10.0) Eosinophils (%) (Auto) 1.8 % (0.0-3.0) Basophils (%) (Auto) 1.1 % (0.0-2.0) Differential Total Cells Counted 100 Neutrophils % (Manual) 68 % (45-75) Lymphocytes % (Manual) 16 % (20-45) L Monocytes % (Manual) 14 % (1-10) H Eosinophils % (Manual) 0 % (0-3) Basophils % (Manual) 0 % (0-2) Band Neutrophils 2 % (0-8) Platelet Estimate Adequate Platelet Morphology Normal Hypochromasia 1+ Erythrocyte Sedimentation Rate 87 MM/HR (0-30) H Reticulocyte Count Pending Prothrombin Time 10.1 SEC (9.30-11.50) Prothromb Time International Ratio 1.0 (0.9-1.1) Activated Partial Thromboplast Time 26 SEC (23-33) Sodium Level 142 MMOL/L (136-145) Potassium Level 3.7 MMOL/L (3.5-5.1) Chloride Level 104 MMOL/L (98-107) Carbon Dioxide Level 32 MMOL/L (21-32) Anion Gap 6 mmol/L (5-15) Blood Urea Nitrogen 44 mg/dL (7-18) H Creatinine 4.5 MG/DL (0.55-1.30) H Estimat Glomerular Filtration Rate mL/min (>60) Glucose Level 133 MG/DL (74-106) H Uric Acid 5.2 MG/DL (2.6-7.2) Calcium Level 7.7 MG/DL (8.5-10.1) L Iron Level 59 ug/dL (50-175) Total Iron Binding Capacity 178 ug/dL (250-450) L Percent Iron Saturation 33 % (15-50) Unsaturated Iron Binding 119 ug/dL (112-346) Total Bilirubin 0.4 MG/DL (0.2-1.0) Aspartate Amino Transf (AST/SGOT) 34 U/L (15-37) Alanine Aminotransferase (ALT/SGPT) 41 U/L (12-78) Alkaline Phosphatase 157 U/L (46-116) H Lactate Dehydrogenase 213 U/L (81-234) Total Creatine Kinase 24 U/L (26-308) L Pro-B-Type Natriuretic Peptide 761 pg/mL (0-125) H Total Protein 6.2 G/DL (6.4-8.2) L Albumin 2.3 G/DL (3.4-5.0) L Globulin 3.9 g/dL Albumin/Globulin Ratio 0.6 (1.0-2.7) L Vitamin B12 Level 1085 PG/ML (193-986) H Folate 11.5 NG/ML (8.6-58.9) Urine Random Sodium 107 MEQ/L (20-110) Urine Potassium Timed 15 mmol/L (12-62) Urine Color Pale yellow Urine Appearance Clear Urine pH 9 (4.5-8.0) Urine Specific [place] 1.015 (1.005-1.035) Urine Protein 2+ (NEGATIVE) H Urine Glucose (UA) 1+ (NEGATIVE) H Urine Ketones Negative (NEGATIVE) Urine Occult Blood 4+ (NEGATIVE) H Urine Nitrite Negative (NEGATIVE) Urine Bilirubin Negative (NEGATIVE) Urine Urobilinogen Normal MG/DL (0.0-1.0) Urine Leukocyte Esterase Negative (NEGATIVE) Urine RBC 20-30 /HPF (0 - 0) H Urine WBC 0 /HPF (0 - 0) Urine Squamous Epithelial Cells Occasional /LPF Urine Bacteria Occasional /HPF (NONE) Urine Eosinophils Occasional Height (Feet): 5 Height (Inches): 11.00 Weight (Pounds): 201 Medications Current Medications Medications (Trade) Dose Ordered Sig/Jessica Route PRN Reason Start Time Stop Time Status Last Admin Dose Admin Acetaminophen (Tylenol) 650 mg Q6H PRN ORAL Mild Pain/Temp > 100.5 09/17/17 02:15 10/17/17 02:14 Acetaminophen/ Hydrocodone Bitart ([place] 5/325) 1 tab Q6H PRN ORAL Severe Pain (Pain Scale 4-10) 09/17/17 08:15 09/24/17 08:14 Albuterol Sulfate (Proventil) 2.5 mg Q4HRT HHN 09/17/17 19:00 09/22/17 18:59 09/20/17 11:11 Albuterol/ Ipratropium (Albuterol/ Ipratropium) 3 ml EVERY 4 HOURS PRN HHN Shortness of breath 09/18/17 06:45 09/23/17 06:44 Artificial Tears (Akwa-Tears) 2 drop Q2H PRN BOTH EYES Dry Eyes 09/18/17 12:15 10/18/17 12:14 09/20/17 08:47 Aspirin (ASA) 81 mg DAILY ORAL 09/17/17 09:00 10/17/17 08:59 09/20/17 09:00 Azithromycin (Zithromax) 250 mg DAILY ORAL 09/18/17 09:00 09/21/17 09:01 09/20/17 09:00 Benzonatate (Tessalon Perles) 100 mg THREE TIMES A DAY PRN ORAL For Cough 09/18/17 06:45 10/18/17 06:44 Bupropion HCl (Wellbutrin XL) 150 mg DAILY ORAL 09/17/17 18:00 10/17/17 17:59 09/20/17 09:00 Cefepime HCl 500 mg/Dextrose 55 ml @ 110 mls/hr QHS IVPB 09/18/17 21:00 09/25/17 20:59 09/19/17 22:27 Docusate Sodium (Colace) 100 mg THREE TIMES A DAY ORAL 09/18/17 18:00 10/18/17 17:59 09/20/17 09:00 Dorzolamide/ Timolol (Cosopt) 1 drop BID BOTH EYES 09/18/17 09:00 10/18/17 08:59 09/20/17 08:49 Epoetin Jerod (Procrit (for ESRD on dialysis)) 10,000 units MON-WED-MON SUBQ 09/18/17 21:00 10/18/17 20:59 09/18/17 21:02 Famotidine (Pepcid) 20 mg DAILY ORAL 09/18/17 09:00 10/18/17 08:59 09/20/17 09:00 Heparin Sodium (Porcine) (Heparin 5000 units/ml) 5,000 units EVERY 8 HOURS SUBQ 09/17/17 14:00 10/17/17 13:59 09/20/17 05:36 Mirtazapine (Remeron) 15 mg BEDTIME ORAL 09/17/17 21:00 10/17/17 20:59 09/19/17 22:27 Ondansetron HCl (Zofran) 4 mg Q4H PRN IVP Nausea & Vomiting 09/17/17 02:15 10/17/17 02:14 Sevelamer Carbonate (Renvela) 800 mg THREE TIMES A DAY ORAL 09/18/17 18:00 10/18/17 17:59 09/20/17 09:00 Tamsulosin HCl (Flomax) 0.4 mg BID ORAL 09/18/17 09:00 10/18/17 08:59 09/20/17 09:00 Assessment/Plan Assessment/Plan Abx: Azithromycin 09/17- Cefepime 09/17- Assessment: LLL Pna (seen in OSH CXR), however CXR here neg -CXR: No radiographic evidence of acute cardiopulmonary disease. -influenza neg Leukocytosis, improving -afebrile -u/a neg HTN, MDD, recent ESRD started on HD on Mid Aug 2017 (at [facility]), s/p perma cath R upper chest Plan: -Continue Cefepime #4/-7 and Azithromycin 4/ -obtain sputum cx -f/u cx -Monitor CBC/BMP, temperatures -aspiration precautions Thank you for Griselda Mazariegos M.D. Sep 20, 2017 12:04
--- NOTE | 2017-09-20 12:18 | Internal Med Progress Note ---
Subjective Date of Service: Sep 20, 2017 Physician Name Karma Guillen Attending Physician Dung Mustafa MD Current Medications Medications (Trade) Dose Ordered Sig/Jessica Route PRN Reason Start Time Stop Time Status Last Admin Dose Admin Acetaminophen (Tylenol) 650 mg Q6H PRN ORAL Mild Pain/Temp > 100.5 09/17/17 02:15 10/17/17 02:14 Acetaminophen/ Hydrocodone Bitart ([place] 5/325) 1 tab Q6H PRN ORAL Severe Pain (Pain Scale 4-10) 09/17/17 08:15 09/24/17 08:14 Albuterol Sulfate (Proventil) 2.5 mg Q4HRT HHN 09/17/17 19:00 09/22/17 18:59 09/20/17 11:11 Albuterol/ Ipratropium (Albuterol/ Ipratropium) 3 ml EVERY 4 HOURS PRN HHN Shortness of breath 09/18/17 06:45 09/23/17 06:44 Artificial Tears (Akwa-Tears) 2 drop Q2H PRN BOTH EYES Dry Eyes 09/18/17 12:15 10/18/17 12:14 09/20/17 08:47 Aspirin (ASA) 81 mg DAILY ORAL 09/17/17 09:00 10/17/17 08:59 09/20/17 09:00 Azithromycin (Zithromax) 250 mg DAILY ORAL 09/18/17 09:00 09/21/17 09:01 09/20/17 09:00 Benzonatate (Tessalon Perles) 100 mg THREE TIMES A DAY PRN ORAL For Cough 09/18/17 06:45 10/18/17 06:44 Bupropion HCl (Wellbutrin XL) 150 mg DAILY ORAL 09/17/17 18:00 10/17/17 17:59 09/20/17 09:00 Cefepime HCl 500 mg/Dextrose 55 ml @ 110 mls/hr QHS IVPB 09/18/17 21:00 09/25/17 20:59 09/19/17 22:27 Docusate Sodium (Colace) 100 mg THREE TIMES A DAY ORAL 09/18/17 18:00 10/18/17 17:59 09/20/17 09:00 Dorzolamide/ Timolol (Cosopt) 1 drop BID BOTH EYES 09/18/17 09:00 10/18/17 08:59 09/20/17 08:49 Epoetin Jerod (Procrit (for ESRD on dialysis)) 10,000 units MON-MON-MON SUBQ 09/18/17 21:00 10/18/17 20:59 09/18/17 21:02 Famotidine (Pepcid) 20 mg DAILY ORAL 09/18/17 09:00 10/18/17 08:59 09/20/17 09:00 Heparin Sodium (Porcine) (Heparin 5000 units/ml) 5,000 units EVERY 8 HOURS SUBQ 09/17/17 14:00 10/17/17 13:59 09/20/17 05:36 Mirtazapine (Remeron) 15 mg BEDTIME ORAL 09/17/17 21:00 10/17/17 20:59 09/19/17 22:27 Ondansetron HCl (Zofran) 4 mg Q4H PRN IVP Nausea & Vomiting 09/17/17 02:15 10/17/17 02:14 Sevelamer Carbonate (Renvela) 800 mg THREE TIMES A DAY ORAL 09/18/17 18:00 10/18/17 17:59 09/20/17 09:00 Tamsulosin HCl (Flomax) 0.4 mg BID ORAL 09/18/17 09:00 10/18/17 08:59 09/20/17 09:00 Allergies: Coded Allergies: CIPROFLOXACIN (Verified Allergy, Unknown, 09/17/17) PENICILLINS (Verified Allergy, Unknown, 09/20/17) tolareted Cefepime Sep 2017 ROS Limited/Unobtainable: No Constitutional: Reports: no symptoms HEENT: Reports: no symptoms Cardiovascular: Reports: no symptoms Respiratory: Reports: cough Gastrointestinal/Abdominal: Reports: no symptoms Genitourinary: Reports: no symptoms Neurologic/Psychiatric: Reports: no symptoms Subjective 81 YO M with shortness of breath. Now pneumonia. Cover for Int Anthony-Dr Mustafa. Objective Last Vital Signs Date Time Temp Pulse Resp B/P (MAP) Pulse Ox O2 Delivery O2 Flow Rate FiO2 09/20/17 11:07 61 18 99 Room Air 21 09/20/17 08:56 97.5 123/67 09/18/17 12:11 2.0 Laboratory Tests Test 09/20/17 04:25 09/20/17 04:30 09/20/17 04:40 White Blood Count 14.8 K/UL (4.8-10.8) H Red Blood Count 2.74 M/UL (4.70-6.10) L Hemoglobin 8.5 G/DL (14.2-18.0) L Hematocrit 26.5 % (42.0-52.0) L Mean Corpuscular Volume 96 FL (80-99) Mean Corpuscular Hemoglobin 31.0 PG (27.0-31.0) Mean Corpuscular Hemoglobin Concent 32.1 G/DL (32.0-36.0) Red Cell Distribution Width 13.6 % (11.6-14.8) Platelet Count 275 K/UL (150-450) Mean Platelet Volume 7.5 FL (6.5-10.1) Neutrophils (%) (Auto) 75.2 % (45.0-75.0) H Lymphocytes (%) (Auto) 11.9 % (20.0-45.0) L Monocytes (%) (Auto) 10.0 % (1.0-10.0) Eosinophils (%) (Auto) 1.8 % (0.0-3.0) Basophils (%) (Auto) 1.1 % (0.0-2.0) Differential Total Cells Counted 100 Neutrophils % (Manual) 68 % (45-75) Lymphocytes % (Manual) 16 % (20-45) L Monocytes % (Manual) 14 % (1-10) H Eosinophils % (Manual) 0 % (0-3) Basophils % (Manual) 0 % (0-2) Band Neutrophils 2 % (0-8) Platelet Estimate Adequate Platelet Morphology Normal Polychromasia Occasional Hypochromasia 1+ Erythrocyte Sedimentation Rate 87 MM/HR (0-30) H Reticulocyte Count 2.5 % (0.0-2.0) H Prothrombin Time 10.1 SEC (9.30-11.50) Prothromb Time International Ratio 1.0 (0.9-1.1) Activated Partial Thromboplast Time 26 SEC (23-33) Sodium Level 142 MMOL/L (136-145) Potassium Level 3.7 MMOL/L (3.5-5.1) Chloride Level 104 MMOL/L (98-107) Carbon Dioxide Level 32 MMOL/L (21-32) Anion Gap 6 mmol/L (5-15) Blood Urea Nitrogen 44 mg/dL (7-18) H Creatinine 4.5 MG/DL (0.55-1.30) H Estimat Glomerular Filtration Rate mL/min (>60) Glucose Level 133 MG/DL (74-106) H Uric Acid 5.2 MG/DL (2.6-7.2) Calcium Level 7.7 MG/DL (8.5-10.1) L Iron Level 59 ug/dL (50-175) Total Iron Binding Capacity 178 ug/dL (250-450) L Percent Iron Saturation 33 % (15-50) Unsaturated Iron Binding 119 ug/dL (112-346) Total Bilirubin 0.4 MG/DL (0.2-1.0) Aspartate Amino Transf (AST/SGOT) 34 U/L (15-37) Alanine Aminotransferase (ALT/SGPT) 41 U/L (12-78) Alkaline Phosphatase 157 U/L (46-116) H Lactate Dehydrogenase 213 U/L (81-234) Total Creatine Kinase 24 U/L (26-308) L Pro-B-Type Natriuretic Peptide 761 pg/mL (0-125) H Total Protein 6.2 G/DL (6.4-8.2) L Albumin 2.3 G/DL (3.4-5.0) L Globulin 3.9 g/dL Albumin/Globulin Ratio 0.6 (1.0-2.7) L Vitamin B12 Level 1085 PG/ML (193-986) H Folate 11.5 NG/ML (8.6-58.9) Urine Random Sodium 107 MEQ/L (20-110) Urine Potassium Timed 15 mmol/L (12-62) Urine Color Pale yellow Urine Appearance Clear Urine pH 9 (4.5-8.0) Urine Specific [employer] 1.015 (1.005-1.035) Urine Protein 2+ (NEGATIVE) H Urine Glucose (UA) 1+ (NEGATIVE) H Urine Ketones Negative (NEGATIVE) Urine Occult Blood 4+ (NEGATIVE) H Urine Nitrite Negative (NEGATIVE) Urine Bilirubin Negative (NEGATIVE) Urine Urobilinogen Normal MG/DL (0.0-1.0) Urine Leukocyte Esterase Negative (NEGATIVE) Urine RBC 20-30 /HPF (0 - 0) H Urine WBC 0 /HPF (0 - 0) Urine Squamous Epithelial Cells Occasional /LPF Urine Bacteria Occasional /HPF (NONE) Urine Eosinophils Occasional Intake and Output 09/19/17 09/20/17 19:00 07:00 Intake Total 1000 ml Output Total 2400 ml 1000 ml Balance -1400 ml -1000 ml Intake Oral 1000 ml Output Urine Total 1200 ml 1000 ml Hemodialysis UF 1200 ml # Bowel Movements 1 Objective General Appearance: WD/WN, no apparent distress, alert, mild distress EENT: PERRL/EOMI, normal ENT inspection, TMs normal Neck: non-tender, normal alignment, supple, normal inspection Cardiovascular: normal peripheral pulses, normal rate, regular rhythm, no gallop/murmur, no JVD Respiratory/Chest: chest wall non-tender, no respiratory distress, no accessory muscle use, crackles/rales, rhonchi - bilaterally, expiratory wheezing Abdomen: normal bowel sounds, non tender, soft, no organomegaly, no mass Extremities: normal range of motion 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 cont abx (4) HTN (hypertension) (5) Depression Assessment & Plan: Continue mirtazipime (6) Pneumonia Assessment & Plan: Continue cefepime and azithro-see ID note. KARMA GUILLEN Sep 20, 2017 12:18
--- NOTE | 2017-09-20 14:37 | Diagnostic Imaging Report ---
Indication: Reason For Exam: [id number] Technique: One view of the chest Comparison: 09/19/2017 Findings: The lungs and pleural spaces are clear. The inspiration is suboptimal. The heart size is borderline enlarged. The aorta is tortuous and ectatic. Tunneled dialysis catheter remains on the right. Findings are unchanged Impression: Unchanged, over one day, findings as above.
--- NOTE | 2017-09-20 15:17 | Nephrology Progress Note ---
Assessment/Plan Problem List: (1) ESRD (end stage renal disease) on dialysis (2) HTN (hypertension) (3) Pneumonia (4) Depression Assessment status: - End-stage renal disease, on hemodialysis. - Left lower lobe pneumonia. - Leukocytosis. - Hypertension. - Depression. Plan Plan; HD in am again Adjust BP meds continue per consultants FU with CS MDs Subjective ROS Limited/Unobtainable: No Constitutional: Reports: malaise Objective Objective Last 24 Hour Vital Signs Date Time Temp Pulse Resp B/P (MAP) Pulse Ox O2 Delivery O2 Flow Rate FiO2 09/20/17 12:00 97.3 68 20 130/73 96 09/20/17 11:07 61 18 99 Room Air 21 09/20/17 11:00 60 18 97 Room Air 09/20/17 08:56 97.5 76 20 123/67 94 09/20/17 08:00 97.7 69 20 130/56 94 09/20/17 07:05 74 18 99 Room Air 21 09/20/17 07:05 95 Room Air 09/20/17 07:05 Room Air 09/20/17 07:00 72 18 94 Room Air 21 09/20/17 04:06 69 18 99 Room Air 21 09/20/17 04:02 63 18 94 Room Air 21 09/20/17 04:00 98.4 64 20 139/73 98 09/20/17 00:00 97.4 72 18 153/79 95 09/19/17 23:36 75 20 99 Room Air 09/19/17 23:29 66 18 98 Room Air 21 09/19/17 20:27 71 20 99 Room Air 21 09/19/17 20:17 95 Room Air 21 09/19/17 20:17 Room Air 09/19/17 20:16 71 18 98 Room Air 09/19/17 20:00 97.6 74 18 146/72 95 09/19/17 16:00 98.0 68 18 115/72 Intake and Output 09/19/17 09/20/17 19:00 07:00 Intake Total 1000 ml Output Total 2400 ml 1000 ml Balance -1400 ml -1000 ml Intake Oral 1000 ml Output Urine Total 1200 ml 1000 ml Hemodialysis UF 1200 ml # Bowel Movements 1 Laboratory Tests 09/20/17 04:25: White Blood Count 14.8H, Red Blood Count 2.74L, Hemoglobin 8.5L, Hematocrit 26.5L, Mean Corpuscular Volume 96, Mean Corpuscular Hemoglobin 31.0, Mean Corpuscular Hemoglobin Concent 32.1, Red Cell Distribution Width 13.6, Platelet Count 275, Mean Platelet Volume 7.5, Neutrophils (%) (Auto) 75.2H, Lymphocytes ( %) (Auto) 11.9L, Monocytes (%) (Auto) 10.0, Eosinophils (%) (Auto) 1.8, Basophils (%) (Auto) 1.1, Differential Total Cells Counted 100, Neutrophils % ( Manual) 68, Lymphocytes % (Manual) 16L, Monocytes % (Manual) 14H, Eosinophils % (Manual) 0, Basophils % (Manual) 0, Band Neutrophils 2, Platelet Estimate Adequate, Platelet Morphology Normal, Polychromasia Occasional, Hypochromasia 1+ , Erythrocyte Sedimentation Rate 87H, Reticulocyte Count 2.5H, Prothrombin Time 10.1, Prothromb Time International Ratio 1.0, Activated Partial Thromboplast Time 26, Sodium Level 142, Potassium Level 3.7, Chloride Level 104, Carbon Dioxide Level 32, Anion Gap 6, Blood Urea Nitrogen 44H, Creatinine 4.5H, Estimat Glomerular Filtration Rate , Glucose Level 133H, Uric Acid 5.2, Calcium Level 7.7L, Iron Level 59, Total Iron Binding Capacity 178L, Percent Iron Saturation 33, Unsaturated Iron Binding 119, Total Bilirubin 0.4, Aspartate Amino Transf (AST/SGOT) 34, Alanine Aminotransferase (ALT/SGPT) 41, Alkaline Phosphatase 157H, Lactate Dehydrogenase 213, Total Creatine Kinase 24L, Pro-B- Type Natriuretic Peptide 761H, Total Protein 6.2L, Albumin 2.3L, Globulin 3.9, Albumin/Globulin Ratio 0.6L, Vitamin B12 Level 1085H, Folate 11.5 09/20/17 04:30: Urine Random Sodium 107, Urine Potassium Timed 15 09/20/17 04:40: Urine Color Pale yellow, Urine Appearance Clear, Urine pH 9, Urine Specific [place] 1.015, Urine Protein 2+H, Urine Glucose (UA) 1+H, Urine Ketones Negative , Urine Occult Blood 4+H, Urine Nitrite Negative, Urine Bilirubin Negative, Urine Urobilinogen Normal, Urine Leukocyte Esterase Negative, Urine RBC 20-30H, Urine WBC 0, Urine Squamous Epithelial Cells Occasional, Urine Bacteria Occasional, Urine Eosinophils Occasional Height (Feet): 5 Height (Inches): 11.00 Weight (Pounds): 201 General Appearance: no apparent distress Cardiovascular: normal rate Respiratory/Chest: decreased breath sounds Abdomen: soft ROMEL RAJAN Sep 20, 2017 15:17
--- NOTE | 2017-09-20 19:52 | Pulmonology Progress Note ---
Assessment/Plan Problems: (1) ESRD (end stage renal disease) on dialysis (2) HTN (hypertension) (3) Pneumonia (4) Leukocytosis (5) Depression Assessment/Plan improving iv ab x check cultures HD by nephrology monitor BP dvt prophylaxis. Subjective ROS Limited/Unobtainable: No Constitutional: Reports: no symptoms HEENT: Repors: no symptoms Respiratory: Reports: no symptoms Allergies: Coded Allergies: CIPROFLOXACIN (Verified Allergy, Unknown, 09/17/17) PENICILLINS (Verified Allergy, Unknown, 09/20/17) tolareted Cefepime Sep 2017 Objective Last 24 Hour Vital Signs Date Time Temp Pulse Resp B/P (MAP) Pulse Ox O2 Delivery O2 Flow Rate FiO2 09/20/17 16:00 97.7 65 20 133/69 95 09/20/17 15:33 63 18 99 Room Air 09/20/17 15:25 65 18 95 Room Air 09/20/17 12:00 97.3 68 20 130/73 96 09/20/17 11:07 61 18 99 Room Air 09/20/17 11:00 60 18 97 Room Air 09/20/17 08:56 97.5 76 20 123/67 94 09/20/17 08:00 97.7 69 20 130/56 94 09/20/17 07:05 74 18 99 Room Air 09/20/17 07:05 95 Room Air 09/20/17 07:05 Room Air 09/20/17 07:00 72 18 94 Room Air 09/20/17 04:06 69 18 99 Room Air 09/20/17 04:02 63 18 94 Room Air 09/20/17 04:00 98.4 64 20 139/73 98 09/20/17 00:00 97.4 72 18 153/79 95 09/19/17 23:36 75 20 99 Room Air 09/19/17 23:29 66 18 98 Room Air 09/19/17 20:27 71 20 99 Room Air 09/19/17 20:17 95 Room Air 21 09/19/17 20:17 Room Air 09/19/17 20:16 71 18 98 Room Air 21 09/19/17 20:00 97.6 74 18 146/72 95 Intake and Output 09/19/17 09/20/17 19:00 07:00 Intake Total 1000 ml Output Total 2400 ml 1000 ml Balance -1400 ml -1000 ml Intake Oral 1000 ml Output Urine Total 1200 ml 1000 ml Hemodialysis UF 1200 ml # Bowel Movements 1 General Appearance: WD/WN HEENT: normocephalic, atraumatic Respiratory/Chest: chest wall non-tender, lungs clear Cardiovascular: normal peripheral pulses, normal rate Abdomen: normal bowel sounds, soft, non tender, no organomegaly Genitourinary: normal external genitalia Skin: no lesions 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/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 normal Laboratory Tests 09/20/17 04:25: White Blood Count 14.8H, Red Blood Count 2.74L, Hemoglobin 8.5L, Hematocrit 26.5L, Mean Corpuscular Volume 96, Mean Corpuscular Hemoglobin 31.0, Mean Corpuscular Hemoglobin Concent 32.1, Red Cell Distribution Width 13.6, Platelet Count 275, Mean Platelet Volume 7.5, Neutrophils (%) (Auto) 75.2H, Lymphocytes ( %) (Auto) 11.9L, Monocytes (%) (Auto) 10.0, Eosinophils (%) (Auto) 1.8, Basophils (%) (Auto) 1.1, Differential Total Cells Counted 100, Neutrophils % ( Manual) 68, Lymphocytes % (Manual) 16L, Monocytes % (Manual) 14H, Eosinophils % (Manual) 0, Basophils % (Manual) 0, Band Neutrophils 2, Platelet Estimate Adequate, Platelet Morphology Normal, Polychromasia Occasional, Hypochromasia 1+ , Erythrocyte Sedimentation Rate 87H, Reticulocyte Count 2.5H, Prothrombin Time 10.1, Prothromb Time International Ratio 1.0, Activated Partial Thromboplast Time 26, Sodium Level 142, Potassium Level 3.7, Chloride Level 104, Carbon Dioxide Level 32, Anion Gap 6, Blood Urea Nitrogen 44H, Creatinine 4.5H, Estimat Glomerular Filtration Rate , Glucose Level 133H, Uric Acid 5.2, Calcium Level 7.7L, Iron Level 59, Total Iron Binding Capacity 178L, Percent Iron Saturation 33, Unsaturated Iron Binding 119, Total Bilirubin 0.4, Aspartate Amino Transf (AST/SGOT) 34, Alanine Aminotransferase (ALT/SGPT) 41, Alkaline Phosphatase 157H, Lactate Dehydrogenase 213, Total Creatine Kinase 24L, Pro-B- Type Natriuretic Peptide 761H, Total Protein 6.2L, Albumin 2.3L, Globulin 3.9, Albumin/Globulin Ratio 0.6L, Vitamin B12 Level 1085H, Folate 11.5 09/20/17 04:30: Urine Random Sodium 107, Urine Potassium Timed 15 09/20/17 04:40: Urine Color Pale yellow, Urine Appearance Clear, Urine pH 9, Urine Specific [place] 1.015, Urine Protein 2+H, Urine Glucose (UA) 1+H, Urine Ketones Negative , Urine Occult Blood 4+H, Urine Nitrite Negative, Urine Bilirubin Negative, Urine Urobilinogen Normal, Urine Leukocyte Esterase Negative, Urine RBC 20-30H, Urine WBC 0, Urine Squamous Epithelial Cells Occasional, Urine Bacteria Occasional, Urine Eosinophils Occasional Current Medications Medications (Trade) Dose Ordered Sig/Jessica Route PRN Reason Start Time Stop Time Status Last Admin Dose Admin Acetaminophen (Tylenol) 650 mg Q6H PRN ORAL Mild Pain/Temp > 100.5 09/17/17 02:15 10/17/17 02:14 Acetaminophen/ Hydrocodone Bitart ([place] 5/325) 1 tab Q6H PRN ORAL Severe Pain (Pain Scale 4-10) 09/17/17 08:15 09/24/17 08:14 Albuterol Sulfate (Proventil) 2.5 mg Q4HRT HHN 09/17/17 19:00 09/22/17 18:59 09/20/17 15:25 Albuterol/ Ipratropium (Albuterol/ Ipratropium) 3 ml EVERY 4 HOURS PRN HHN Shortness of breath 09/18/17 06:45 09/23/17 06:44 Artificial Tears (Akwa-Tears) 2 drop Q2H PRN BOTH EYES Dry Eyes 09/18/17 12:15 10/18/17 12:14 09/20/17 08:47 Aspirin (ASA) 81 mg DAILY ORAL 09/17/17 09:00 10/17/17 08:59 09/20/17 09:00 Azithromycin (Zithromax) 250 mg DAILY ORAL 09/18/17 09:00 09/21/17 09:01 09/20/17 09:00 Benzonatate (Tessalon Perles) 100 mg THREE TIMES A DAY PRN ORAL For Cough 09/18/17 06:45 10/18/17 06:44 Bupropion HCl (Wellbutrin XL) 150 mg DAILY ORAL 09/17/17 18:00 10/17/17 17:59 09/20/17 09:00 Cefepime HCl 500 mg/Dextrose 55 ml @ 110 mls/hr QHS IVPB 09/18/17 21:00 09/25/17 20:59 09/19/17 22:27 Docusate Sodium (Colace) 100 mg THREE TIMES A DAY ORAL 09/18/17 18:00 10/18/17 17:59 09/20/17 18:00 Dorzolamide/ Timolol (Cosopt) 1 drop BID BOTH EYES 09/18/17 09:00 10/18/17 08:59 09/20/17 17:37 Epoetin Jerod (Procrit (for ESRD on dialysis)) 10,000 units MON-MON-MON SUBQ 09/18/17 21:00 10/18/17 20:59 09/18/17 21:02 Famotidine (Pepcid) 20 mg DAILY ORAL 09/18/17 09:00 10/18/17 08:59 09/20/17 09:00 Heparin Sodium (Porcine) (Heparin 5000 units/ml) 5,000 units EVERY 8 HOURS SUBQ 09/17/17 14:00 10/17/17 13:59 09/20/17 05:36 Mirtazapine (Remeron) 15 mg BEDTIME ORAL 09/17/17 21:00 10/17/17 20:59 09/19/17 22:27 Ondansetron HCl (Zofran) 4 mg Q4H PRN IVP Nausea & Vomiting 09/17/17 02:15 10/17/17 02:14 Sevelamer Carbonate (Renvela) 800 mg THREE TIMES A DAY ORAL 09/18/17 18:00 10/18/17 17:59 09/20/17 18:02 Tamsulosin HCl (Flomax) 0.4 mg BID ORAL 09/18/17 09:00 10/18/17 08:59 09/20/17 17:36 PENNIE CHAMBERLAIN Sep 20, 2017 19:52
[2017-09-20] MEDS: Cefepime HCl 500 MG in D5W 55 ML IVPB SCH (21:47)
[2017-09-20] MEDS: Epogen (for ESRD on dialysis) SUBQ SCH (21:48)
[2017-09-21] VITALS (7 sets, daily range): BP systolic 106–145; BP diastolic 57–84
[2017-09-21] MEDS: Albuterol ud Inhalation HHN SCH ×6 (03:09→23:00)
[2017-09-21] MEDS: Heparin 5000 units/ml inj SUBQ SCH ×3 (05:23→20:59)
[2017-09-21 08:37] LABS: BASOPHILS % (AUTO) 0.8 % (0.0-2.0); EOSINOPHILS % (AUTO) 1.5 % (0.0-3.0); HEMATOCRIT 27.6 % (42.0-52.0); HEMOGLOBIN 8.6 G/DL (14.2-18.0); LYMPHOCYTES % (AUTO) 11.5 % (20.0-45.0); MEAN CORPUSCULAR VOLUME 99 FL (80-99); MONOCYTES % (AUTO) 7.2 % (1.0-10.0); PLATELET COUNT 248 K/UL (150-450); WHITE BLOOD COUNT 17.2 K/UL (4.8-10.8)
[2017-09-21 08:47] LABS: ANION GAP 7 mmol/L (5-15); BLOOD UREA NITROGEN 54 mg/dL (7-18); CALCIUM 7.9 MG/DL (8.5-10.1); CARBON DIOXIDE 30 MMOL/L (21-32); CHLORIDE 103 MMOL/L (98-107); CREATININE 5.4 MG/DL (0.55-1.30); POTASSIUM 4.3 MMOL/L (3.5-5.1); SODIUM 140 MMOL/L (136-145)
[2017-09-21] MEDS: Cosopt Opth Soln 10 mL Btl BOTH EYES SCH ×2 (09:06→17:09)
[2017-09-21] MEDS: Docusate 100mg cap ORAL SCH ×3 (09:06→17:09)
[2017-09-21] MEDS: Tamsulosin 0.4mg cap ORAL SCH ×2 (09:06→17:09)
[2017-09-21] MEDS: BuPROPion XL 150mg tab ORAL SCH (09:06)
[2017-09-21] MEDS: Aspirin Baby 81mg ORAL SCH (09:06)
[2017-09-21] MEDS: Azithromycin 250mg tab ORAL SCH (09:07)
--- NOTE | 2017-09-21 15:50 | Nephrology Progress Note ---
Assessment/Plan Problem List: (1) ESRD (end stage renal disease) on dialysis (2) HTN (hypertension) (3) Pneumonia (4) Depression Assessment status: - End-stage renal disease, on hemodialysis. - Left lower lobe pneumonia. - Leukocytosis. - Hypertension. - Depression. Plan Plan; HD today Adjust BP meds continue per consultants FU with CS MDs Subjective ROS Limited/Unobtainable: No Constitutional: Reports: malaise Objective Objective Last 24 Hour Vital Signs Date Time Temp Pulse Resp B/P (MAP) Pulse Ox O2 Delivery O2 Flow Rate FiO2 09/21/17 15:47 71 20 98 Room Air 21 09/21/17 15:45 68 18 97 Room Air 21 09/21/17 11:45 97.9 63 20 126/71 98 09/21/17 11:41 73 18 99 Room Air 21 09/21/17 11:30 72 16 95 Room Air 21 09/21/17 08:28 71 18 99 Room Air 21 09/21/17 08:20 72 16 95 Room Air 09/21/17 08:20 96 Room Air 09/21/17 08:20 Room Air 09/21/17 08:00 97.5 69 20 123/67 99 09/21/17 04:00 97 Room Air 09/21/17 04:00 97.3 62 20 139/68 97 09/21/17 03:15 68 18 99 Room Air 21 09/21/17 03:09 64 18 96 Room Air 21 09/21/17 00:00 99 Room Air 09/21/17 00:00 98.1 64 18 145/84 99 09/20/17 23:05 Room Air 09/20/17 23:05 Room Air 09/20/17 20:50 63 18 99 Room Air 21 09/20/17 20:41 96 Room Air 09/20/17 20:41 69 16 95 Room Air 21 09/20/17 20:41 Room Air 09/20/17 20:00 97.8 68 20 136/71 96 09/20/17 20:00 96 Room Air 09/20/17 16:00 97.7 65 20 133/69 95 Intake and Output 09/20/17 09/21/17 19:00 07:00 Intake Total 360 ml 350 ml Output Total 800 ml 2200 ml Balance -440 ml -1850 ml Intake Oral 360 ml 240 ml IV Total 110 ml Output Urine Total 800 ml 2200 ml Laboratory Tests 09/21/17 07:30: White Blood Count 17.2H, Red Blood Count 2.80L, Hemoglobin 8.6L, Hematocrit 27.6L, Mean Corpuscular Volume 99, Mean Corpuscular Hemoglobin 30.6, Mean Corpuscular Hemoglobin Concent 31.1L, Red Cell Distribution Width 14.0, Platelet Count 248, Mean Platelet Volume 6.9, Neutrophils (%) (Auto) 79.0H, Lymphocytes (%) (Auto) 11.5L, Monocytes (%) (Auto) 7.2, Eosinophils (%) (Auto) 1.5, Basophils (%) (Auto) 0.8, Sodium Level 140, Potassium Level 4.3, Chloride Level 103, Carbon Dioxide Level 30, Anion Gap 7, Blood Urea Nitrogen 54H, Creatinine 5.4H, Estimat Glomerular Filtration Rate , Glucose Level 136H, Calcium Level 7.9L Height (Feet): 5 Height (Inches): 11.00 Weight (Pounds): 201 General Appearance: no apparent distress Cardiovascular: normal rate Respiratory/Chest: decreased breath sounds ROMEL RAJAN Sep 21, 2017 15:50
--- NOTE | 2017-09-21 18:01 | Internal Med Progress Note ---
Subjective Date of Service: Sep 21, 2017 Physician Name Karma Flores Attending Physician Dung Mustafa MD Current Medications Medications (Trade) Dose Ordered Sig/Jessica Route PRN Reason Start Time Stop Time Status Last Admin Dose Admin Acetaminophen (Tylenol) 650 mg Q6H PRN ORAL Mild Pain/Temp > 100.5 09/17/17 02:15 10/17/17 02:14 Acetaminophen/ Hydrocodone Bitart ([place] 5/325) 1 tab Q6H PRN ORAL Severe Pain (Pain Scale 4-10) 09/17/17 08:15 09/24/17 08:14 Albuterol Sulfate (Proventil) 2.5 mg Q4HRT HHN 09/17/17 19:00 09/22/17 18:59 09/21/17 15:44 Albuterol/ Ipratropium (Albuterol/ Ipratropium) 3 ml EVERY 4 HOURS PRN HHN Shortness of breath 09/18/17 06:45 09/23/17 06:44 Artificial Tears (Akwa-Tears) 2 drop Q2H PRN BOTH EYES Dry Eyes 09/18/17 12:15 10/18/17 12:14 09/20/17 08:47 Aspirin (ASA) 81 mg DAILY ORAL 09/17/17 09:00 10/17/17 08:59 09/21/17 09:06 Benzonatate (Tessalon Perles) 100 mg THREE TIMES A DAY PRN ORAL For Cough 09/18/17 06:45 10/18/17 06:44 Bupropion HCl (Wellbutrin XL) 150 mg DAILY ORAL 09/17/17 18:00 10/17/17 17:59 09/21/17 09:06 Cefepime HCl 500 mg/Dextrose 55 ml @ 110 mls/hr QHS IVPB 09/18/17 21:00 09/25/17 20:59 09/20/17 21:47 Docusate Sodium (Colace) 100 mg THREE TIMES A DAY ORAL 09/18/17 18:00 10/18/17 17:59 09/21/17 17:09 Dorzolamide/ Timolol (Cosopt) 1 drop BID BOTH EYES 09/18/17 09:00 10/18/17 08:59 09/21/17 17:09 Epoetin Jerod (Procrit (for ESRD on dialysis)) 10,000 units MON-WED-FRI SUBQ 09/18/17 21:00 10/18/17 20:59 09/20/17 21:48 Famotidine (Pepcid) 20 mg DAILY ORAL 09/18/17 09:00 10/18/17 08:59 09/21/17 09:06 Heparin Sodium (Porcine) (Heparin 5000 units/ml) 5,000 units EVERY 8 HOURS SUBQ 09/17/17 14:00 10/17/17 13:59 09/21/17 05:23 Mirtazapine (Remeron) 15 mg BEDTIME ORAL 09/17/17 21:00 10/17/17 20:59 09/20/17 21:46 Ondansetron HCl (Zofran) 4 mg Q4H PRN IVP Nausea & Vomiting 09/17/17 02:15 10/17/17 02:14 Sevelamer Carbonate (Renvela) 800 mg THREE TIMES A DAY ORAL 09/18/17 18:00 10/18/17 17:59 09/21/17 17:08 Tamsulosin HCl (Flomax) 0.4 mg BID ORAL 09/18/17 09:00 10/18/17 08:59 09/21/17 17:09 Allergies: Coded Allergies: CIPROFLOXACIN (Verified Allergy, Unknown, 09/17/17) PENICILLINS (Verified Allergy, Unknown, 09/20/17) tolareted Cefepime Sep 2017 ROS Limited/Unobtainable: No Constitutional: Reports: no symptoms HEENT: Reports: no symptoms Cardiovascular: Reports: no symptoms Respiratory: Reports: no symptoms Gastrointestinal/Abdominal: Reports: constipated Genitourinary: Reports: no symptoms Neurologic/Psychiatric: Reports: no symptoms Subjective 81 YO M with shortness of breath. Now pneumonia. Cover for Int Anthony-Dr Mustafa. C/O constipation Objective Last Vital Signs Date Time Temp Pulse Resp B/P (MAP) Pulse Ox O2 Delivery O2 Flow Rate FiO2 09/21/17 15:57 97.9 63 20 122/70 97 09/21/17 15:47 Room Air 21 09/18/17 12:11 2.0 Laboratory Tests Test 09/21/17 07:30 White Blood Count 17.2 K/UL (4.8-10.8) H Red Blood Count 2.80 M/UL (4.70-6.10) L Hemoglobin 8.6 G/DL (14.2-18.0) L Hematocrit 27.6 % (42.0-52.0) L Mean Corpuscular Volume 99 FL (80-99) Mean Corpuscular Hemoglobin 30.6 PG (27.0-31.0) Mean Corpuscular Hemoglobin Concent 31.1 G/DL (32.0-36.0) L Red Cell Distribution Width 14.0 % (11.6-14.8) Platelet Count 248 K/UL (150-450) Mean Platelet Volume 6.9 FL (6.5-10.1) Neutrophils (%) (Auto) 79.0 % (45.0-75.0) H Lymphocytes (%) (Auto) 11.5 % (20.0-45.0) L Monocytes (%) (Auto) 7.2 % (1.0-10.0) Eosinophils (%) (Auto) 1.5 % (0.0-3.0) Basophils (%) (Auto) 0.8 % (0.0-2.0) Sodium Level 140 MMOL/L (136-145) Potassium Level 4.3 MMOL/L (3.5-5.1) Chloride Level 103 MMOL/L (98-107) Carbon Dioxide Level 30 MMOL/L (21-32) Anion Gap 7 mmol/L (5-15) Blood Urea Nitrogen 54 mg/dL (7-18) H Creatinine 5.4 MG/DL (0.55-1.30) H Estimat Glomerular Filtration Rate mL/min (>60) Glucose Level 136 MG/DL (74-106) H Calcium Level 7.9 MG/DL (8.5-10.1) L Intake and Output 09/20/17 09/21/17 19:00 07:00 Intake Total 360 ml 350 ml Output Total 800 ml 2200 ml Balance -440 ml -1850 ml Intake Oral 360 ml 240 ml IV Total 110 ml Output Urine Total 800 ml 2200 ml Objective General Appearance: WD/WN, no apparent distress, alert, mild distress EENT: PERRL/EOMI, normal ENT inspection, TMs normal Neck: non-tender, normal alignment, supple, normal inspection Cardiovascular: normal peripheral pulses, normal rate, regular rhythm, no gallop/murmur, no JVD Respiratory/Chest: chest wall non-tender, no respiratory distress, no accessory muscle use, crackles/rales, rhonchi - bilaterally, expiratory wheezing Abdomen: normal bowel sounds, non tender, soft, no organomegaly, no mass Extremities: normal range of motion 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 cont abx (4) HTN (hypertension) (5) Depression Assessment & Plan: Continue mirtazipime (6) Pneumonia Assessment & Plan: Continue cefepime and azithro-see ID note. (7) Constipation Assessment & Plan: dulcolax supp KARMA Reese Sep 21, 2017 18:01
--- NOTE | 2017-09-21 19:25 | Infectious Diseases Prog Note ---
Assessment/Plan Assessment/Plan Abx: Azithromycin 09/17- Cefepime 09/17- Assessment: LLL Pna (seen in OSH CXR), however CXR here neg -CXR: No radiographic evidence of acute cardiopulmonary disease. -influenza neg -sp cx p Leukocytosis, worsening- clinically unchanged -afebrile -u/a neg -Bcx p HTN, MDD, recent ESRD started on HD on Mid Aug 2017 (at [facility]), s/p perma cath R upper chest Plan: -Continue Cefepime #5/5-7 and Azithromycin 5/ -obtain sputum cx, Bcx -f/u cx -Monitor CBC/BMP, temperatures; Trend WBC -aspiration precautions Subjective Allergies: Coded Allergies: CIPROFLOXACIN (Verified Allergy, Unknown, 09/17/17) PENICILLINS (Verified Allergy, Unknown, 09/20/17) tolareted Cefepime Sep 2017 Subjective afebrile, increased leukocytosis but clinically improved, at RA' SOB improving no diarrhea, +constipated Objective Vital Signs Last 24 Hour Vital Signs Date Time Temp Pulse Resp B/P (MAP) Pulse Ox O2 Delivery O2 Flow Rate FiO2 09/21/17 15:57 97.9 63 20 122/70 97 09/21/17 15:47 71 20 98 Room Air 21 09/21/17 15:45 68 18 97 Room Air 21 09/21/17 11:45 97.9 63 20 126/71 98 09/21/17 11:41 73 18 99 Room Air 21 09/21/17 11:30 72 16 95 Room Air 21 09/21/17 08:28 71 18 99 Room Air 21 09/21/17 08:20 72 16 95 Room Air 21 09/21/17 08:20 96 Room Air 09/21/17 08:20 Room Air 09/21/17 08:00 97.5 69 20 123/67 99 09/21/17 04:00 97 Room Air 09/21/17 04:00 97.3 62 20 139/68 97 09/21/17 03:15 68 18 99 Room Air 21 09/21/17 03:09 64 18 96 Room Air 21 09/21/17 00:00 99 Room Air 09/21/17 00:00 98.1 64 18 145/84 99 09/20/17 23:05 Room Air 09/20/17 23:05 Room Air 09/20/17 20:50 63 18 99 Room Air 21 09/20/17 20:41 96 Room Air 09/20/17 20:41 69 16 95 Room Air 21 09/20/17 20:41 Room Air 09/20/17 20:00 97.8 68 20 136/71 96 09/20/17 20:00 96 Room Air Height (Feet): 5 Height (Inches): 11.00 Weight (Pounds): 201 Laboratory Tests Test 09/21/17 07:30 White Blood Count 17.2 K/UL (4.8-10.8) H Red Blood Count 2.80 M/UL (4.70-6.10) L Hemoglobin 8.6 G/DL (14.2-18.0) L Hematocrit 27.6 % (42.0-52.0) L Mean Corpuscular Volume 99 FL (80-99) Mean Corpuscular Hemoglobin 30.6 PG (27.0-31.0) Mean Corpuscular Hemoglobin Concent 31.1 G/DL (32.0-36.0) L Red Cell Distribution Width 14.0 % (11.6-14.8) Platelet Count 248 K/UL (150-450) Mean Platelet Volume 6.9 FL (6.5-10.1) Neutrophils (%) (Auto) 79.0 % (45.0-75.0) H Lymphocytes (%) (Auto) 11.5 % (20.0-45.0) L Monocytes (%) (Auto) 7.2 % (1.0-10.0) Eosinophils (%) (Auto) 1.5 % (0.0-3.0) Basophils (%) (Auto) 0.8 % (0.0-2.0) Sodium Level 140 MMOL/L (136-145) Potassium Level 4.3 MMOL/L (3.5-5.1) Chloride Level 103 MMOL/L (98-107) Carbon Dioxide Level 30 MMOL/L (21-32) Anion Gap 7 mmol/L (5-15) Blood Urea Nitrogen 54 mg/dL (7-18) H Creatinine 5.4 MG/DL (0.55-1.30) H Estimat Glomerular Filtration Rate mL/min (>60) Glucose Level 136 MG/DL (74-106) H Calcium Level 7.9 MG/DL (8.5-10.1) L Current Medications Medications (Trade) Dose Ordered Sig/Jessica Route PRN Reason Start Time Stop Time Status Last Admin Dose Admin Acetaminophen (Tylenol) 650 mg Q6H PRN ORAL Mild Pain/Temp > 100.5 09/17/17 02:15 10/17/17 02:14 Acetaminophen/ Hydrocodone Bitart ([place] 5/325) 1 tab Q6H PRN ORAL Severe Pain (Pain Scale 4-10) 09/17/17 08:15 09/24/17 08:14 Albuterol Sulfate (Proventil) 2.5 mg Q4HRT HHN 09/17/17 19:00 09/22/17 18:59 09/21/17 15:44 Albuterol/ Ipratropium (Albuterol/ Ipratropium) 3 ml EVERY 4 HOURS PRN HHN Shortness of breath 09/18/17 06:45 09/23/17 06:44 Artificial Tears ([place]-Tears) 2 drop Q2H PRN BOTH EYES Dry Eyes 09/18/17 12:15 10/18/17 12:14 09/20/17 08:47 Aspirin (ASA) 81 mg DAILY ORAL 09/17/17 09:00 10/17/17 08:59 09/21/17 09:06 Benzonatate (Tessalon Perles) 100 mg THREE TIMES A DAY PRN ORAL For Cough 09/18/17 06:45 10/18/17 06:44 Bupropion HCl (Wellbutrin XL) 150 mg DAILY ORAL 09/17/17 18:00 10/17/17 17:59 09/21/17 09:06 Cefepime HCl 500 mg/Dextrose 55 ml @ 110 mls/hr QHS IVPB 09/18/17 21:00 09/25/17 20:59 09/20/17 21:47 Docusate Sodium (Colace) 100 mg THREE TIMES A DAY ORAL 09/18/17 18:00 10/18/17 17:59 09/21/17 17:09 Dorzolamide/ Timolol (Cosopt) 1 drop BID BOTH EYES 09/18/17 09:00 10/18/17 08:59 09/21/17 17:09 Epoetin Jerod (Procrit (for ESRD on dialysis)) 10,000 units MON-MON-MON SUBQ 09/18/17 21:00 10/18/17 20:59 09/20/17 21:48 Famotidine (Pepcid) 20 mg DAILY ORAL 09/18/17 09:00 10/18/17 08:59 09/21/17 09:06 Heparin Sodium (Porcine) (Heparin 5000 units/ml) 5,000 units EVERY 8 HOURS SUBQ 09/17/17 14:00 10/17/17 13:59 09/21/17 05:23 Mirtazapine (Remeron) 15 mg BEDTIME ORAL 09/17/17 21:00 10/17/17 20:59 09/20/17 21:46 Ondansetron HCl (Zofran) 4 mg Q4H PRN IVP Nausea & Vomiting 09/17/17 02:15 10/17/17 02:14 Sevelamer Carbonate (Renvela) 800 mg THREE TIMES A DAY ORAL 09/18/17 18:00 10/18/17 17:59 09/21/17 17:08 Tamsulosin HCl (Flomax) 0.4 mg BID ORAL 09/18/17 09:00 10/18/17 08:59 09/21/17 17:09 Griselda Mazariegos M.D. Sep 21, 2017 19:25
[2017-09-21] MEDS: Cefepime HCl 500 MG in D5W 55 ML IVPB SCH (20:59)
[2017-09-22] VITALS (7 sets, daily range): BP systolic 96–138; BP diastolic 52–88
[2017-09-22] MEDS: Albuterol ud Inhalation HHN SCH ×3 (03:00→11:57)
[2017-09-22] MEDS: Heparin 5000 units/ml inj SUBQ SCH ×3 (06:00→21:52)
[2017-09-22 07:21] LABS: HEMATOCRIT 27.7 % (42.0-52.0); MEAN CORPUSCULAR VOLUME 97 FL (80-99); PLATELET COUNT 299 K/UL (150-450); RED BLOOD COUNT 2.85 M/UL (4.70-6.10); RED CELL DISTRIBUTION WIDTH 14.4 % (11.6-14.8); WHITE BLOOD COUNT 18.8 K/UL (4.8-10.8)
[2017-09-22 07:57] LABS: ANION GAP 6 mmol/L (5-15); BLOOD UREA NITROGEN 33 mg/dL (7-18); CALCIUM 7.5 MG/DL (8.5-10.1); CARBON DIOXIDE 31 MMOL/L (21-32); CHLORIDE 105 MMOL/L (98-107); CREATININE 3.9 MG/DL (0.55-1.30); SODIUM 142 MMOL/L (136-145)
--- NOTE | 2017-09-22 08:48 | Pulmonology Progress Note ---
Assessment/Plan Assessment/Plan ASSESSMENT LLL PNA acute bronchospasm ESRD on HD HTN depression anemia of chronic kidney disease PLAN OF CARE MS floor O2 HHN ATC and prn IV steroids and taper abx ID follows bl cx P, UA negative aspiration precautions ST eval nephro follows HD as per nephro, monitor renal, lytes, replace as needed BP management, currently normotensive monitor HH, transfuse prn, on EPO anemia w/up noted DVT GI prophylaxis continue Wellbutrin, Remeron case discussed and evaluated by supervising physician Subjective Allergies: Coded Allergies: CIPROFLOXACIN (Verified Allergy, Unknown, 09/17/17) PENICILLINS (Verified Allergy, Unknown, 09/20/17) tolareted Cefepime Sep 2017 Subjective leukocytosis trending up, afebrile complaining of wheezing , no SOB pulse ox stable on RA, no cough Objective Last 24 Hour Vital Signs Date Time Temp Pulse Resp B/P (MAP) Pulse Ox O2 Delivery O2 Flow Rate FiO2 09/22/17 04:03 Room Air 09/22/17 04:03 Room Air 09/22/17 04:00 93 Room Air 09/22/17 03:39 98.2 73 20 131/74 93 Room Air 09/22/17 00:00 95 Room Air 09/22/17 00:00 98.1 73 18 134/67 95 09/21/17 23:10 Room Air 09/21/17 23:10 Room Air 09/21/17 20:22 Room Air 09/21/17 20:22 Room Air 09/21/17 20:21 95 Room Air 09/21/17 20:21 Room Air 09/21/17 20:00 95 Room Air 09/21/17 20:00 98.1 70 18 106/57 95 09/21/17 19:15 Room Air 09/21/17 19:15 98.0 72 20 122/67 Room Air 09/21/17 15:57 97.9 63 20 122/70 97 09/21/17 15:47 71 20 98 Room Air 21 09/21/17 15:45 68 18 97 Room Air 21 09/21/17 11:45 97.9 63 20 126/71 98 09/21/17 11:41 73 18 99 Room Air 21 09/21/17 11:30 72 16 95 Room Air 21 Intake and Output 09/21/17 09/22/17 19:00 07:00 Intake Total 360 ml 110 ml Output Total 200 ml 1000 ml Balance 160 ml -890 ml Intake Oral 360 ml IV Total 110 ml Output Urine Total 200 ml Hemodialysis UF 1000 ml # Voids 3 General Appearance: no acute distress HEENT: normocephalic, atraumatic, anicteric, mucous membranes moist, PERRL Respiratory/Chest: expiratory wheezing - some scattered expiratory wheezes Cardiovascular: normal peripheral pulses, normal rate, no JVD Abdomen: normal bowel sounds, soft, non tender Genitourinary: other - [place] Neurologic/Psychiatric: alert, responsive Musculoskeletal: atrophy - BLE Microbiology Date/Time Source Procedure Growth Status 09/20/17 11:45 Sputum Induced Gram Stain - Final Resulted 09/20/17 11:45 Sputum Induced Sputum Culture - Preliminary NORMAL UPPER RESPIRATORY ZAKI AT 24 ... Resulted 09/21/17 15:30 Indwelling Cath Urine Culture - Preliminary NO GROWTH Resulted Laboratory Tests 09/21/17 22:10: Stool Occult Blood Negative 09/22/17 06:15: White Blood Count 18.8H, Red Blood Count 2.85L, Hemoglobin 9.0L, Hematocrit 27.7L, Mean Corpuscular Volume 97, Mean Corpuscular Hemoglobin 31.7H, Mean Corpuscular Hemoglobin Concent 32.5, Red Cell Distribution Width 14.4, Platelet Count 299, Mean Platelet Volume 7.3, Neutrophils (%) (Auto) , Lymphocytes (%) ( Auto) , Monocytes (%) (Auto) , Eosinophils (%) (Auto) , Basophils (%) (Auto) , Neutrophils % (Manual) [Pending], Lymphocytes % (Manual) [Pending], Platelet Estimate [Pending], Platelet Morphology [Pending], Sodium Level 142, Potassium Level 4.0, Chloride Level 105, Carbon Dioxide Level 31, Anion Gap 6, Blood Urea Nitrogen 33H, Creatinine 3.9H, Estimat Glomerular Filtration Rate , Glucose Level 97, Calcium Level 7.5L, C-Reactive Protein, Quantitative 3.0H Current Medications Medications (Trade) Dose Ordered Sig/Jessica Route PRN Reason Start Time Stop Time Status Last Admin Dose Admin Acetaminophen (Tylenol) 650 mg Q6H PRN ORAL Mild Pain/Temp > 100.5 09/17/17 02:15 10/17/17 02:14 Acetaminophen/ Hydrocodone Bitart ([place] 5/325) 1 tab Q6H PRN ORAL Severe Pain (Pain Scale 4-10) 09/17/17 08:15 09/24/17 08:14 Albuterol Sulfate (Proventil) 2.5 mg Q4HRT HHN 09/17/17 19:00 09/22/17 18:59 09/21/17 15:44 Albuterol/ Ipratropium (Albuterol/ Ipratropium) 3 ml EVERY 4 HOURS PRN HHN Shortness of breath 09/18/17 06:45 09/23/17 06:44 Artificial Tears (Akwa-Tears) 2 drop Q2H PRN BOTH EYES Dry Eyes 09/18/17 12:15 10/18/17 12:14 09/20/17 08:47 Aspirin (ASA) 81 mg DAILY ORAL 09/17/17 09:00 10/17/17 08:59 09/21/17 09:06 Benzonatate (Tessalon Perles) 100 mg THREE TIMES A DAY PRN ORAL For Cough 09/18/17 06:45 10/18/17 06:44 Bupropion HCl (Wellbutrin XL) 150 mg DAILY ORAL 09/17/17 18:00 10/17/17 17:59 09/21/17 09:06 Cefepime HCl 500 mg/Dextrose 55 ml @ 110 mls/hr QHS IVPB 09/18/17 21:00 09/25/17 20:59 09/21/17 20:59 Docusate Sodium (Colace) 100 mg THREE TIMES A DAY ORAL 09/18/17 18:00 10/18/17 17:59 09/21/17 17:09 Dorzolamide/ Timolol (Cosopt) 1 drop BID BOTH EYES 09/18/17 09:00 10/18/17 08:59 09/21/17 17:09 Epoetin Jerod (Procrit (for ESRD on dialysis)) 10,000 units MON-MON-MON SUBQ 09/18/17 21:00 10/18/17 20:59 09/20/17 21:48 Famotidine (Pepcid) 20 mg DAILY ORAL 09/18/17 09:00 10/18/17 08:59 09/21/17 09:06 Heparin Sodium (Porcine) (Heparin 5000 units/ml) 5,000 units EVERY 8 HOURS SUBQ 12/31/17 14:00 10/17/17 13:59 09/21/17 05:23 Mirtazapine (Remeron) 15 mg BEDTIME ORAL 09/17/17 21:00 10/17/17 20:59 09/21/17 20:58 Ondansetron HCl (Zofran) 4 mg Q4H PRN IVP Nausea & Vomiting 09/17/17 02:15 10/17/17 02:14 Sevelamer Carbonate (Renvela) 800 mg THREE TIMES A DAY ORAL 09/18/17 18:00 10/18/17 17:59 09/21/17 17:08 Tamsulosin HCl (Flomax) 0.4 mg BID ORAL 09/18/17 09:00 10/18/17 08:59 09/21/17 17:09 [facility] Hospital[facility] Bianchi NP Sep 22, 2017 08:48
[2017-09-22] MEDS: Aspirin Baby 81mg ORAL SCH (09:37)
[2017-09-22] MEDS: Cosopt Opth Soln 10 mL Btl BOTH EYES SCH ×2 (09:37→18:27)
[2017-09-22] MEDS: Docusate 100mg cap ORAL SCH ×3 (09:37→18:28)
[2017-09-22] MEDS: BuPROPion XL 150mg tab ORAL SCH (09:38)
[2017-09-22] MEDS: Tamsulosin 0.4mg cap ORAL SCH ×2 (09:38→18:28)
--- NOTE | 2017-09-22 11:07 | Diagnostic Imaging Report ---
Indication: Reason For Exam: SOB Technique: 2 views of the chest Comparison: 09/20/2017. One view chest Findings: Lungs and pleural spaces are clear. Heart size is normal. Bones demonstrate degenerative spondylosis changes. Right jugular tunneled dialysis catheter remains. Findings are unchanged. Impression: No acute process
--- NOTE | 2017-09-22 12:39 | Infectious Diseases Prog Note ---
Assessment/Plan Assessment/Plan Abx: Azithromycin 09/17-09/21 Cefepime 09/17- Assessment: LLL Pna (seen in OSH CXR), however CXR here neg -CXR 09/22 No acute process -CXR: No radiographic evidence of acute cardiopulmonary disease. -influenza neg -sp cx normal ian Leukocytosis, worsening- clinically unchanged -afebrile -u/a neg; Ucx NTD -Bcx p HTN, MDD, recent ESRD started on HD on Mid Aug 2017 (at [facility] s/p perma cath R upper chest Plan: -Continue empiric Cefepime #6/7 -09/21 SP Azithromycin #5 -KUB -Consider CT abd/p if abd pain, fever or worsening WBC -f/u cx -Monitor CBC/BMP, temperatures; Trend WBC -aspiration precautions Subjective Allergies: Coded Allergies: CIPROFLOXACIN (Verified Allergy, Unknown, 09/17/17) PENICILLINS (Verified Allergy, Unknown, 09/20/17) tolareted Cefepime Sep 2017 Subjective afebrile, clinically improving but worsenign WBC ucx NTD sp cx NF Bcx p repaet CXR neg Objective Vital Signs Last 24 Hour Vital Signs Date Time Temp Pulse Resp B/P (MAP) Pulse Ox O2 Delivery O2 Flow Rate FiO2 09/22/17 12:06 76 18 95 Room Air 21 09/22/17 11:59 76 18 95 Room Air 21 09/22/17 11:51 98.0 75 20 96/52 95 Room Air 09/22/17 09:48 Room Air 09/22/17 09:48 Room Air 09/22/17 09:41 73 138/68 09/22/17 08:30 97.2 73 20 108/88 92 09/22/17 07:13 Room Air 09/22/17 07:13 95 Room Air 21 09/22/17 04:03 Room Air 09/22/17 04:03 Room Air 09/22/17 04:00 93 Room Air 09/22/17 03:39 98.2 73 20 131/74 93 Room Air 09/22/17 00:00 95 Room Air 09/22/17 00:00 98.1 73 18 134/67 95 09/21/17 23:10 Room Air 09/21/17 23:10 Room Air 09/21/17 20:22 Room Air 09/21/17 20:22 Room Air 09/21/17 20:21 95 Room Air 09/21/17 20:21 Room Air 09/21/17 20:00 95 Room Air 09/21/17 20:00 98.1 70 18 106/57 95 09/21/17 19:15 Room Air 09/21/17 19:15 98.0 72 20 122/67 Room Air 09/21/17 15:57 97.9 63 20 122/70 97 09/21/17 15:47 71 20 98 Room Air 21 09/21/17 15:45 68 18 97 Room Air 21 Height (Feet): 5 Height (Inches): 11.00 Weight (Pounds): 201 Objective GENERAL: The patient is a well-developed, well-nourished, white male, in no apparent distress. HEENT: Eyes, pupils are equal and responsive to light and accommodation. Extraocular movements are intact. NECK: Supple without lymphadenopathy. CHEST: CTA x2 CARDIOVASCULAR: Regular rhythm and rate. S1 and S2 are normal without murmurs, rubs, or gallops. ABDOMEN: Soft, nontender, and nondistended. Positive bowel sounds. No evidence of hepatosplenomegaly. Currently, no rebound or guarding noted. EXTREMITIES: Negative for clubbing, cyanosis, or edema. R chest ruslan cath ihn place , no signs of infection NEUROLOGIC: Cranial nerves II through XII are grossly intact without focal deficits. Motor strength is 5/5 bilaterally. Deep tendon reflexes are 2+ plantar. Microbiology Date/Time Source Procedure Growth Status 09/20/17 11:45 Sputum Induced Gram Stain - Final Resulted 09/20/17 11:45 Sputum Induced Sputum Culture - Preliminary NORMAL UPPER RESPIRATORY IAN AT 24 ... Resulted 09/21/17 15:30 Indwelling Cath Urine Culture - Preliminary NO GROWTH Resulted Laboratory Tests Test 09/21/17 22:10 09/22/17 06:15 Stool Occult Blood Negative (NEGATIVE) White Blood Count 18.8 K/UL (4.8-10.8) H Red Blood Count 2.85 M/UL (4.70-6.10) L Hemoglobin 9.0 G/DL (14.2-18.0) L Hematocrit 27.7 % (42.0-52.0) L Mean Corpuscular Volume 97 FL (80-99) Mean Corpuscular Hemoglobin 31.7 PG (27.0-31.0) H Mean Corpuscular Hemoglobin Concent 32.5 G/DL (32.0-36.0) Red Cell Distribution Width 14.4 % (11.6-14.8) Platelet Count 299 K/UL (150-450) Mean Platelet Volume 7.3 FL (6.5-10.1) Neutrophils (%) (Auto) % (45.0-75.0) Lymphocytes (%) (Auto) % (20.0-45.0) Monocytes (%) (Auto) % (1.0-10.0) Eosinophils (%) (Auto) % (0.0-3.0) Basophils (%) (Auto) % (0.0-2.0) Differential Total Cells Counted 100 Neutrophils % (Manual) 69 % (45-75) Lymphocytes % (Manual) 10 % (20-45) L Monocytes % (Manual) 16 % (1-10) H Eosinophils % (Manual) 0 % (0-3) Basophils % (Manual) 0 % (0-2) Band Neutrophils 5 % (0-8) Platelet Estimate Adequate Platelet Morphology Normal Hypochromasia 1+ Sodium Level 142 MMOL/L (136-145) Potassium Level 4.0 MMOL/L (3.5-5.1) Chloride Level 105 MMOL/L (98-107) Carbon Dioxide Level 31 MMOL/L (21-32) Anion Gap 6 mmol/L (5-15) Blood Urea Nitrogen 33 mg/dL (7-18) H Creatinine 3.9 MG/DL (0.55-1.30) H Estimat Glomerular Filtration Rate mL/min (>60) Glucose Level 97 MG/DL (74-106) Calcium Level 7.5 MG/DL (8.5-10.1) L C-Reactive Protein, Quantitative 3.0 mg/dL (0.00-0.90) H Current Medications Medications (Trade) Dose Ordered Sig/Jessica Route PRN Reason Start Time Stop Time Status Last Admin Dose Admin Acetaminophen (Tylenol) 650 mg Q6H PRN ORAL Mild Pain/Temp > 100.5 09/17/17 02:15 10/17/17 02:14 Acetaminophen/ Hydrocodone Bitart ([place] 5/325) 1 tab Q6H PRN ORAL Severe Pain (Pain Scale 4-10) 09/17/17 08:15 09/24/17 08:14 Albuterol Sulfate (Proventil) 2.5 mg Q4HRT HHN 09/17/17 19:00 09/22/17 18:59 09/22/17 11:57 Albuterol/ Ipratropium (Albuterol/ Ipratropium) 3 ml EVERY 4 HOURS PRN HHN Shortness of breath 09/18/17 06:45 09/23/17 06:44 Artificial Tears (Akwa-Tears) 2 drop Q2H PRN BOTH EYES Dry Eyes 09/18/17 12:15 10/18/17 12:14 09/20/17 08:47 Aspirin (ASA) 81 mg DAILY ORAL 09/17/17 09:00 10/17/17 08:59 09/22/17 09:37 Benzonatate (Tessalon Perles) 100 mg THREE TIMES A DAY PRN ORAL For Cough 09/18/17 06:45 10/18/17 06:44 Bupropion HCl (Wellbutrin XL) 150 mg DAILY ORAL 09/17/17 18:00 10/17/17 17:59 09/22/17 09:38 Cefepime HCl 500 mg/Dextrose 55 ml @ 110 mls/hr QHS IVPB 09/18/17 21:00 09/25/17 20:59 09/21/17 20:59 Docusate Sodium (Colace) 100 mg THREE TIMES A DAY ORAL 09/18/17 18:00 10/18/17 17:59 09/22/17 09:37 Dorzolamide/ Timolol (Cosopt) 1 drop BID BOTH EYES 09/18/17 09:00 10/18/17 08:59 09/22/17 09:37 Epoetin Jerod (Procrit (for ESRD on dialysis)) 10,000 units MON-WED-MON SUBQ 09/18/17 21:00 10/18/17 20:59 09/20/17 21:48 Famotidine (Pepcid) 20 mg DAILY ORAL 09/18/17 09:00 10/18/17 08:59 09/22/17 09:38 Heparin Sodium (Porcine) (Heparin 5000 units/ml) 5,000 units EVERY 8 HOURS SUBQ 09/17/17 14:00 10/17/17 13:59 09/21/17 05:23 Mirtazapine (Remeron) 15 mg BEDTIME ORAL 09/17/17 21:00 10/17/17 20:59 09/21/17 20:58 Ondansetron HCl (Zofran) 4 mg Q4H PRN IVP Nausea & Vomiting 09/17/17 02:15 10/17/17 02:14 Sevelamer Carbonate (Renvela) 800 mg THREE TIMES A DAY ORAL 09/18/17 18:00 10/18/17 17:59 09/22/17 09:38 Tamsulosin HCl (Flomax) 0.4 mg BID ORAL 09/18/17 09:00 10/18/17 08:59 09/22/17 09:38 Griselda Mazariegos M.D. Sep 22, 2017 12:39
--- NOTE | 2017-09-22 14:02 | Diagnostic Imaging Report ---
Indication: Abdominal pain, constipation Technique: Supine view of the abdomen Comparison: none Findings: Bowel gas pattern is unremarkable. Some stool is seen in the ascending and transverse colon. No unusual masses or calcifications. 2 surgical clips are seen in the pelvis. There are degenerative changes of the lumbar spine Impression: Mild amount of retained feces in the ascending and transverse colon, nonspecific. No acute abnormality
--- NOTE | 2017-09-22 14:37 | Nephrology Progress Note ---
Assessment/Plan Problem List: (1) ESRD (end stage renal disease) on dialysis (2) HTN (hypertension) (3) Pneumonia (4) Depression Assessment status: - End-stage renal disease, on hemodialysis. - Left lower lobe pneumonia. - Leukocytosis. - Hypertension. - Depression. Plan Plan; HD next in am Adjust BP meds continue per consultants taper steroids as possible FU with CS MDs Subjective ROS Limited/Unobtainable: No Constitutional: Reports: malaise, weakness Objective Objective Last 24 Hour Vital Signs Date Time Temp Pulse Resp B/P (MAP) Pulse Ox O2 Delivery O2 Flow Rate FiO2 09/22/17 12:06 76 18 95 Room Air 21 09/22/17 11:59 76 18 95 Room Air 21 09/22/17 11:51 98.0 75 20 96/52 95 Room Air 09/22/17 09:48 Room Air 09/22/17 09:48 Room Air 09/22/17 09:41 73 138/68 09/22/17 08:30 97.2 73 20 108/88 92 09/22/17 07:13 Room Air 09/22/17 07:13 95 Room Air 21 09/22/17 04:03 Room Air 09/22/17 04:03 Room Air 09/22/17 04:00 93 Room Air 09/22/17 03:39 98.2 73 20 131/74 93 Room Air 09/22/17 00:00 95 Room Air 09/22/17 00:00 98.1 73 18 134/67 95 09/21/17 23:10 Room Air 09/21/17 23:10 Room Air 09/21/17 20:22 Room Air 09/21/17 20:22 Room Air 09/21/17 20:21 95 Room Air 09/21/17 20:21 Room Air 09/21/17 20:00 95 Room Air 09/21/17 20:00 98.1 70 18 106/57 95 09/21/17 19:15 Room Air 09/21/17 19:15 98.0 72 20 122/67 Room Air 09/21/17 15:57 97.9 63 20 122/70 97 09/21/17 15:47 71 20 98 Room Air 21 09/21/17 15:45 68 18 97 Room Air 21 Intake and Output 09/21/17 09/22/17 19:00 07:00 Intake Total 360 ml 110 ml Output Total 200 ml 1000 ml Balance 160 ml -890 ml Intake Oral 360 ml IV Total 110 ml Output Urine Total 200 ml Hemodialysis UF 1000 ml # Voids 3 Laboratory Tests 09/21/17 22:10: Stool Occult Blood Negative 09/22/17 06:15: White Blood Count 18.8H, Red Blood Count 2.85L, Hemoglobin 9.0L, Hematocrit 27.7L, Mean Corpuscular Volume 97, Mean Corpuscular Hemoglobin 31.7H, Mean Corpuscular Hemoglobin Concent 32.5, Red Cell Distribution Width 14.4, Platelet Count 299, Mean Platelet Volume 7.3, Neutrophils (%) (Auto) , Lymphocytes (%) ( Auto) , Monocytes (%) (Auto) , Eosinophils (%) (Auto) , Basophils (%) (Auto) , Differential Total Cells Counted 100, Neutrophils % (Manual) 69, Lymphocytes % ( Manual) 10L, Monocytes % (Manual) 16H, Eosinophils % (Manual) 0, Basophils % ( Manual) 0, Band Neutrophils 5, Platelet Estimate Adequate, Platelet Morphology Normal, Hypochromasia 1+, Sodium Level 142, Potassium Level 4.0, Chloride Level 105, Carbon Dioxide Level 31, Anion Gap 6, Blood Urea Nitrogen 33H, Creatinine 3.9H, Estimat Glomerular Filtration Rate , Glucose Level 97, Calcium Level 7.5L , C-Reactive Protein, Quantitative 3.0H Height (Feet): 5 Height (Inches): 11.00 Weight (Pounds): 201 Cardiovascular: normal rate Respiratory/Chest: decreased breath sounds, rhonchi - bilaterally Abdomen: soft, distended ROMEL RAJAN Sep 22, 2017 14:37
[2017-09-22] MEDS: Solu-MEDROL 40mg Inj IVP SCH (16:02)
--- NOTE | 2017-09-22 17:12 | Internal Med Progress Note ---
Subjective Date of Service: Sep 22, 2017 Physician Name SandraKarma Attending Physician Dung Mustafa MD Current Medications Medications (Trade) Dose Ordered Sig/Jessica Route PRN Reason Start Time Stop Time Status Last Admin Dose Admin Acetaminophen (Tylenol) 650 mg Q6H PRN ORAL Mild Pain/Temp > 100.5 09/17/17 02:15 10/17/17 02:14 Acetaminophen/ Hydrocodone Bitart ([place] 5/325) 1 tab Q6H PRN ORAL Severe Pain (Pain Scale 4-10) 09/17/17 08:15 09/24/17 08:14 Albuterol/ Ipratropium (Albuterol/ Ipratropium) 3 ml EVERY 4 HOURS PRN HHN Shortness of breath 09/18/17 06:45 09/23/17 06:44 Albuterol/ Ipratropium (Albuterol/ Ipratropium) 3 ml TIDRT HHN 09/22/17 19:00 09/27/17 18:59 Artificial Tears (Akwa-Tears) 2 drop Q2H PRN BOTH EYES Dry Eyes 09/18/17 12:15 10/18/17 12:14 09/20/17 08:47 Aspirin (ASA) 81 mg DAILY ORAL 09/17/17 09:00 10/17/17 08:59 09/22/17 09:37 Benzonatate (Tessalon Perles) 100 mg THREE TIMES A DAY PRN ORAL For Cough 09/18/17 06:45 10/18/17 06:44 Bupropion HCl (Wellbutrin XL) 150 mg DAILY ORAL 09/17/17 18:00 10/17/17 17:59 09/22/17 09:38 Cefepime HCl 500 mg/Dextrose 55 ml @ 110 mls/hr QHS IVPB 09/18/17 21:00 09/23/17 23:59 09/21/17 20:59 Docusate Sodium (Colace) 100 mg THREE TIMES A DAY ORAL 09/18/17 18:00 10/18/17 17:59 09/22/17 14:15 Dorzolamide/ Timolol (Cosopt) 1 drop BID BOTH EYES 09/18/17 09:00 10/18/17 08:59 09/22/17 09:37 Epoetin Jerod (Procrit (for ESRD on dialysis)) 10,000 units MON-MON-MON SUBQ 09/18/17 21:00 10/18/17 20:59 09/20/17 21:48 Famotidine (Pepcid) 20 mg DAILY ORAL 09/18/17 09:00 10/18/17 08:59 09/22/17 09:38 Heparin Sodium (Porcine) (Heparin 5000 units/ml) 5,000 units EVERY 8 HOURS SUBQ 09/17/17 14:00 10/17/17 13:59 09/21/17 05:23 Methylprednisolone Sodium Succinate (Solu-MEDROL) 40 mg Q12H IVP 09/22/17 15:00 10/22/17 14:59 09/22/17 16:02 Mirtazapine (Remeron) 15 mg BEDTIME ORAL 09/17/17 21:00 10/17/17 20:59 09/21/17 20:58 Ondansetron HCl (Zofran) 4 mg Q4H PRN IVP Nausea & Vomiting 09/17/17 02:15 10/17/17 02:14 Sevelamer Carbonate (Renvela) 800 mg THREE TIMES A DAY ORAL 09/18/17 18:00 10/18/17 17:59 09/22/17 14:10 Tamsulosin HCl (Flomax) 0.4 mg BID ORAL 09/18/17 09:00 10/18/17 08:59 09/22/17 09:38 Allergies: Coded Allergies: CIPROFLOXACIN (Verified Allergy, Unknown, 09/17/17) PENICILLINS (Verified Allergy, Unknown, 09/20/17) tolareted Cefepime Sep 2017 ROS Limited/Unobtainable: No Constitutional: Reports: no symptoms HEENT: Reports: no symptoms Cardiovascular: Reports: no symptoms Respiratory: Reports: no symptoms Gastrointestinal/Abdominal: Reports: no symptoms Genitourinary: Reports: no symptoms Neurologic/Psychiatric: Reports: no symptoms Subjective 81 YO M with shortness of breath. Now pneumonia. Cover for Int Anthony-Dr Mustafa. Objective Last Vital Signs Date Time Temp Pulse Resp B/P (MAP) Pulse Ox O2 Delivery O2 Flow Rate FiO2 09/22/17 16:00 Room Air 09/22/17 15:55 98.4 73 20 128/70 95 09/22/17 12:06 21 09/18/17 12:11 2.0 Laboratory Tests Test 09/21/17 22:10 09/22/17 06:15 Stool Occult Blood Negative (NEGATIVE) White Blood Count 18.8 K/UL (4.8-10.8) H Red Blood Count 2.85 M/UL (4.70-6.10) L Hemoglobin 9.0 G/DL (14.2-18.0) L Hematocrit 27.7 % (42.0-52.0) L Mean Corpuscular Volume 97 FL (80-99) Mean Corpuscular Hemoglobin 31.7 PG (27.0-31.0) H Mean Corpuscular Hemoglobin Concent 32.5 G/DL (32.0-36.0) Red Cell Distribution Width 14.4 % (11.6-14.8) Platelet Count 299 K/UL (150-450) Mean Platelet Volume 7.3 FL (6.5-10.1) Neutrophils (%) (Auto) % (45.0-75.0) Lymphocytes (%) (Auto) % (20.0-45.0) Monocytes (%) (Auto) % (1.0-10.0) Eosinophils (%) (Auto) % (0.0-3.0) Basophils (%) (Auto) % (0.0-2.0) Differential Total Cells Counted 100 Neutrophils % (Manual) 69 % (45-75) Lymphocytes % (Manual) 10 % (20-45) L Monocytes % (Manual) 16 % (1-10) H Eosinophils % (Manual) 0 % (0-3) Basophils % (Manual) 0 % (0-2) Band Neutrophils 5 % (0-8) Platelet Estimate Adequate Platelet Morphology Normal Hypochromasia 1+ Sodium Level 142 MMOL/L (136-145) Potassium Level 4.0 MMOL/L (3.5-5.1) Chloride Level 105 MMOL/L (98-107) Carbon Dioxide Level 31 MMOL/L (21-32) Anion Gap 6 mmol/L (5-15) Blood Urea Nitrogen 33 mg/dL (7-18) H Creatinine 3.9 MG/DL (0.55-1.30) H Estimat Glomerular Filtration Rate mL/min (>60) Glucose Level 97 MG/DL (74-106) Calcium Level 7.5 MG/DL (8.5-10.1) L C-Reactive Protein, Quantitative 3.0 mg/dL (0.00-0.90) H Microbiology Date/Time Source Procedure Growth Status 09/20/17 11:45 Sputum Induced Gram Stain - Final Resulted 09/20/17 11:45 Sputum Induced Sputum Culture - Preliminary NORMAL UPPER RESPIRATORY ZAKI AT 24 ... Resulted 09/21/17 15:30 Indwelling Cath Urine Culture - Preliminary NO GROWTH Resulted Intake and Output 09/21/17 09/22/17 19:00 07:00 Intake Total 360 ml 110 ml Output Total 200 ml 1000 ml Balance 160 ml -890 ml Intake Oral 360 ml IV Total 110 ml Output Urine Total 200 ml Hemodialysis UF 1000 ml # Voids 3 Objective General Appearance: WD/WN, no apparent distress, alert, mild distress EENT: PERRL/EOMI, normal ENT inspection, TMs normal Neck: non-tender, normal alignment, supple, normal inspection Cardiovascular: normal peripheral pulses, normal rate, regular rhythm, no gallop/murmur, no JVD Respiratory/Chest: chest wall non-tender, no respiratory distress, no accessory muscle use, crackles/rales, rhonchi - bilaterally, expiratory wheezing Abdomen: normal bowel sounds, non tender, soft, no organomegaly, no mass Extremities: normal range of motion 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 cont abx (4) HTN (hypertension) (5) Depression Assessment & Plan: Continue mirtazipime (6) Pneumonia Assessment & Plan: Continue cefepime-see ID note. KARMA GUILLEN Sep 22, 2017 17:11
[2017-09-22] MEDS: Albuterol/Ipratropium 3ml neb HHN SCH (20:27)
[2017-09-22] MEDS: Cefepime HCl 500 MG in D5W 55 ML IVPB SCH (21:50)
[2017-09-22] MEDS: Epogen (for ESRD on dialysis) SUBQ SCH (21:51)
--- NOTE | 2017-09-22 22:17 | Consultation ---
History of Present Illness General Date patient seen: Sep 21, 2017 Reason for Consultation: dyspnea Present Illness Allergies: Coded Allergies: CIPROFLOXACIN (Verified Allergy, Unknown, 09/17/17) PENICILLINS (Verified Allergy, Unknown, 09/20/17) tolareted Cefepime Sep 2017 Medication History Scheduled Aspirin (Aspirin), 81 MG PO DAILY, (Reported) Bupropion Xl* (Bupropion Xl*), 150 MG ORAL Q24H, (Reported) Famotidine (Famotidine), 20 MG ORAL DAILY, (Reported) Paricalcitol (Zemplar), 1 MCG ORAL DAILY, (Reported) Sevelamer Carbonate* (Renvela*), 800 MG ORAL THREE TIMES A DAY, (Reported) Tamsulosin Hcl (Tamsulosin Hcl*), 0.4 MG ORAL BID, (Reported) Scheduled PRN Benzonatate* (Benzonatate*), 100 MG ORAL THREE TIMES A DAY PRN for For Cough, ( Reported) Guaifenesin* (Guaifenesin), 10 ML ORAL Q4H PRN for For Cough, (Reported) Ipratropium/Albuterol Sulfate (DuoNeb 0.5-3(2.5)mg/3ml), 3 ML HHN EVERY 4 HOURS PRN for Shortness of breath, (Reported) Miscellaneous Medications Carboxymethylcellulose Sodium (Refresh Tears), 15 ML OP, (Reported) Dorzolamide HCl/Timolol Maleat (Dorzolamide-Timolol Eye Drops), 1 DROP BOTH EYES , (Reported) [Non], (Reported) Patient History Healthcare decision maker Norman cadet(son) [phone] Resuscitation status Full Code Advanced Directive on File Physical Exam Last 24 Hour Vital Signs Date Time Temp Pulse Resp B/P (MAP) Pulse Ox O2 Delivery O2 Flow Rate FiO2 09/22/17 20:35 74 18 97 Room Air 21 09/22/17 20:28 Room Air 09/22/17 20:28 78 20 96 Room Air 21 09/22/17 20:27 97 Room Air 21 09/22/17 20:21 98.4 64 20 128/73 90 Room Air 09/22/17 16:00 Room Air 09/22/17 15:55 98.4 73 20 128/70 95 09/22/17 15:00 Room Air 09/22/17 15:00 Room Air 09/22/17 12:06 76 18 95 Room Air 21 09/22/17 11:59 76 18 95 Room Air 21 09/22/17 11:51 98.0 75 20 96/52 95 Room Air 09/22/17 09:48 Room Air 09/22/17 09:48 Room Air 09/22/17 09:41 73 138/68 09/22/17 08:30 97.2 73 20 108/88 92 09/22/17 07:13 Room Air 09/22/17 07:13 95 Room Air 21 09/22/17 04:03 Room Air 09/22/17 04:03 Room Air 09/22/17 04:00 93 Room Air 09/22/17 03:39 98.2 73 20 131/74 93 Room Air 09/22/17 00:00 95 Room Air 09/22/17 00:00 98.1 73 18 134/67 95 09/21/17 23:10 Room Air 09/21/17 23:10 Room Air Intake and Output 09/21/17 09/22/17 19:00 07:00 Intake Total 360 ml 110 ml Output Total 200 ml 1000 ml Balance 160 ml -890 ml Intake Oral 360 ml IV Total 110 ml Output Urine Total 200 ml Hemodialysis UF 1000 ml # Voids 3 Laboratory Tests Test 09/22/17 06:15 White Blood Count 18.8 K/UL (4.8-10.8) H Red Blood Count 2.85 M/UL (4.70-6.10) L Hemoglobin 9.0 G/DL (14.2-18.0) L Hematocrit 27.7 % (42.0-52.0) L Mean Corpuscular Volume 97 FL (80-99) Mean Corpuscular Hemoglobin 31.7 PG (27.0-31.0) H Mean Corpuscular Hemoglobin Concent 32.5 G/DL (32.0-36.0) Red Cell Distribution Width 14.4 % (11.6-14.8) Platelet Count 299 K/UL (150-450) Mean Platelet Volume 7.3 FL (6.5-10.1) Neutrophils (%) (Auto) % (45.0-75.0) Lymphocytes (%) (Auto) % (20.0-45.0) Monocytes (%) (Auto) % (1.0-10.0) Eosinophils (%) (Auto) % (0.0-3.0) Basophils (%) (Auto) % (0.0-2.0) Differential Total Cells Counted 100 Neutrophils % (Manual) 69 % (45-75) Lymphocytes % (Manual) 10 % (20-45) L Monocytes % (Manual) 16 % (1-10) H Eosinophils % (Manual) 0 % (0-3) Basophils % (Manual) 0 % (0-2) Band Neutrophils 5 % (0-8) Platelet Estimate Adequate Platelet Morphology Normal Hypochromasia 1+ Sodium Level 142 MMOL/L (136-145) Potassium Level 4.0 MMOL/L (3.5-5.1) Chloride Level 105 MMOL/L (98-107) Carbon Dioxide Level 31 MMOL/L (21-32) Anion Gap 6 mmol/L (5-15) Blood Urea Nitrogen 33 mg/dL (7-18) H Creatinine 3.9 MG/DL (0.55-1.30) H Estimat Glomerular Filtration Rate mL/min (>60) Glucose Level 97 MG/DL (74-106) Calcium Level 7.5 MG/DL (8.5-10.1) L C-Reactive Protein, Quantitative 3.0 mg/dL (0.00-0.90) H Height (Feet): 5 Height (Inches): 11.00 Weight (Pounds): 201 Medications Current Medications Medications (Trade) Dose Ordered Sig/Jessica Route PRN Reason Start Time Stop Time Status Last Admin Dose Admin Acetaminophen (Tylenol) 650 mg Q6H PRN ORAL Mild Pain/Temp > 100.5 09/17/17 02:15 10/17/17 02:14 Acetaminophen/ Hydrocodone Bitart ([place] 5/325) 1 tab Q6H PRN ORAL Severe Pain (Pain Scale 4-10) 09/17/17 08:15 09/24/17 08:14 Albuterol/ Ipratropium (Albuterol/ Ipratropium) 3 ml EVERY 4 HOURS PRN HHN Shortness of breath 09/18/17 06:45 09/23/17 06:44 Albuterol/ Ipratropium (Albuterol/ Ipratropium) 3 ml TIDRT HHN 09/22/17 19:00 09/27/17 18:59 09/22/17 20:27 Artificial Tears (Akwa-Tears) 2 drop Q2H PRN BOTH EYES Dry Eyes 09/18/17 12:15 10/18/17 12:14 09/20/17 08:47 Aspirin (ASA) 81 mg DAILY ORAL 09/17/17 09:00 10/17/17 08:59 09/22/17 09:37 Benzonatate (Tessalon Perles) 100 mg THREE TIMES A DAY PRN ORAL For Cough 09/18/17 06:45 10/18/17 06:44 Bupropion HCl (Wellbutrin XL) 150 mg DAILY ORAL 09/17/17 18:00 10/17/17 17:59 09/22/17 09:38 Cefepime HCl 500 mg/Dextrose 55 ml @ 110 mls/hr QHS IVPB 09/18/17 21:00 09/23/17 23:59 09/22/17 21:50 Docusate Sodium (Colace) 100 mg THREE TIMES A DAY ORAL 09/18/17 18:00 10/18/17 17:59 09/22/17 18:28 Dorzolamide/ Timolol (Cosopt) 1 drop BID BOTH EYES 09/18/17 09:00 10/18/17 08:59 09/22/17 18:27 Epoetin Jerod (Procrit (for ESRD on dialysis)) 10,000 units MON-MON-MON SUBQ 09/18/17 21:00 10/18/17 20:59 09/22/17 21:51 Famotidine (Pepcid) 20 mg DAILY ORAL 09/18/17 09:00 10/18/17 08:59 09/22/17 09:38 Heparin Sodium (Porcine) (Heparin 5000 units/ml) 5,000 units EVERY 8 HOURS SUBQ 09/17/17 14:00 10/17/17 13:59 09/21/17 05:23 Methylprednisolone Sodium Succinate (Solu-MEDROL) 40 mg Q12H IVP 09/22/17 15:00 10/22/17 14:59 09/22/17 16:02 Mirtazapine (Remeron) 15 mg BEDTIME ORAL 09/17/17 21:00 10/17/17 20:59 09/22/17 21:50 Ondansetron HCl (Zofran) 4 mg Q4H PRN IVP Nausea & Vomiting 09/17/17 02:15 10/17/17 02:14 Sevelamer Carbonate (Renvela) 800 mg THREE TIMES A DAY ORAL 09/18/17 18:00 10/18/17 17:59 09/22/17 18:28 Tamsulosin HCl (Flomax) 0.4 mg BID ORAL 09/18/17 09:00 10/18/17 08:59 09/22/17 18:28 Trudi Escobar M.D. Sep 22, 2017 22:17
--- NOTE | 2017-09-22 22:22 | Consultation ---
History of Present Illness General Date patient seen: Sep 21, 2017 Reason for Consultation: dyspnea Present Illness HPI 81-year-old, white male, with hx of depression and anxiety who presents with chief complaint of shortness of breath and cough. the pt is pw low energy and anhedonia. Allergies: Coded Allergies: CIPROFLOXACIN (Verified Allergy, Unknown, 09/17/17) PENICILLINS (Verified Allergy, Unknown, 09/20/17) tolareted Cefepime Sep 2017 Medication History Scheduled Aspirin (Aspirin), 81 MG PO DAILY, (Reported) Bupropion Xl* (Bupropion Xl*), 150 MG ORAL Q24H, (Reported) Famotidine (Famotidine), 20 MG ORAL DAILY, (Reported) Paricalcitol (Zemplar), 1 MCG ORAL DAILY, (Reported) Sevelamer Carbonate* (Renvela*), 800 MG ORAL THREE TIMES A DAY, (Reported) Tamsulosin Hcl (Tamsulosin Hcl*), 0.4 MG ORAL BID, (Reported) Scheduled PRN Benzonatate* (Benzonatate*), 100 MG ORAL THREE TIMES A DAY PRN for For Cough, ( Reported) Guaifenesin* (Guaifenesin), 10 ML ORAL Q4H PRN for For Cough, (Reported) Ipratropium/Albuterol Sulfate (DuoNeb 0.5-3(2.5)mg/3ml), 3 ML HHN EVERY 4 HOURS PRN for Shortness of breath, (Reported) Miscellaneous Medications Carboxymethylcellulose Sodium (Refresh Tears), 15 ML OP, (Reported) Dorzolamide HCl/Timolol Maleat (Dorzolamide-Timolol Eye Drops), 1 DROP BOTH EYES , (Reported) [Non], (Reported) Patient History Limited by: medical condition History Provided By: Patient, Medical Record, PMD Healthcare decision maker Norman cadet(son) [phone] Resuscitation status Full Code Advanced Directive on File Past Medical/Surgical History Past Medical/Surgical History: (1) Renal failure (2) Shortness of breath (3) Depression (4) Leukocytosis (5) Pneumonia (6) HTN (hypertension) (7) ESRD (end stage renal disease) on dialysis (8) Prostate cancer (9) Constipation Review of Systems Psychiatric: Reports: prior hx, anxiety, depressed feelings, emotional problems Physical Exam General Appearance: no apparent distress, alert Neurologic: alert, oriented x 3, responsive, depressed affect Last 24 Hour Vital Signs Date Time Temp Pulse Resp B/P (MAP) Pulse Ox O2 Delivery O2 Flow Rate FiO2 09/22/17 20:35 74 18 97 Room Air 21 09/22/17 20:28 Room Air 09/22/17 20:28 78 20 96 Room Air 21 09/22/17 20:27 97 Room Air 21 09/22/17 20:21 98.4 64 20 128/73 90 Room Air 09/22/17 16:00 Room Air 09/22/17 15:55 98.4 73 20 128/70 95 09/22/17 15:00 Room Air 09/22/17 15:00 Room Air 09/22/17 12:06 76 18 95 Room Air 21 09/22/17 11:59 76 18 95 Room Air 09/22/17 11:51 98.0 75 20 96/52 95 Room Air 09/22/17 09:48 Room Air 09/22/17 09:48 Room Air 09/22/17 09:41 73 138/68 09/22/17 08:30 97.2 73 20 108/88 92 09/22/17 07:13 Room Air 09/22/17 07:13 95 Room Air 09/22/17 04:03 Room Air 09/22/17 04:03 Room Air 09/22/17 04:00 93 Room Air 09/22/17 03:39 98.2 73 20 131/74 93 Room Air 09/22/17 00:00 95 Room Air 09/22/17 00:00 98.1 73 18 134/67 95 09/21/17 23:10 Room Air 09/21/17 23:10 Room Air Intake and Output 09/21/17 09/22/17 19:00 07:00 Intake Total 360 ml 110 ml Output Total 200 ml 1000 ml Balance 160 ml -890 ml Intake Oral 360 ml IV Total 110 ml Output Urine Total 200 ml Hemodialysis UF 1000 ml # Voids 3 Laboratory Tests Test 09/22/17 06:15 White Blood Count 18.8 K/UL (4.8-10.8) H Red Blood Count 2.85 M/UL (4.70-6.10) L Hemoglobin 9.0 G/DL (14.2-18.0) L Hematocrit 27.7 % (42.0-52.0) L Mean Corpuscular Volume 97 FL (80-99) Mean Corpuscular Hemoglobin 31.7 PG (27.0-31.0) H Mean Corpuscular Hemoglobin Concent 32.5 G/DL (32.0-36.0) Red Cell Distribution Width 14.4 % (11.6-14.8) Platelet Count 299 K/UL (150-450) Mean Platelet Volume 7.3 FL (6.5-10.1) Neutrophils (%) (Auto) % (45.0-75.0) Lymphocytes (%) (Auto) % (20.0-45.0) Monocytes (%) (Auto) % (1.0-10.0) Eosinophils (%) (Auto) % (0.0-3.0) Basophils (%) (Auto) % (0.0-2.0) Differential Total Cells Counted 100 Neutrophils % (Manual) 69 % (45-75) Lymphocytes % (Manual) 10 % (20-45) L Monocytes % (Manual) 16 % (1-10) H Eosinophils % (Manual) 0 % (0-3) Basophils % (Manual) 0 % (0-2) Band Neutrophils 5 % (0-8) Platelet Estimate Adequate Platelet Morphology Normal Hypochromasia 1+ Sodium Level 142 MMOL/L (136-145) Potassium Level 4.0 MMOL/L (3.5-5.1) Chloride Level 105 MMOL/L (98-107) Carbon Dioxide Level 31 MMOL/L (21-32) Anion Gap 6 mmol/L (5-15) Blood Urea Nitrogen 33 mg/dL (7-18) H Creatinine 3.9 MG/DL (0.55-1.30) H Estimat Glomerular Filtration Rate mL/min (>60) Glucose Level 97 MG/DL (74-106) Calcium Level 7.5 MG/DL (8.5-10.1) L C-Reactive Protein, Quantitative 3.0 mg/dL (0.00-0.90) H Height (Feet): 5 Height (Inches): 11.00 Weight (Pounds): 201 Medications Current Medications Medications (Trade) Dose Ordered Sig/Jessica Route PRN Reason Start Time Stop Time Status Last Admin Dose Admin Acetaminophen (Tylenol) 650 mg Q6H PRN ORAL Mild Pain/Temp > 100.5 09/17/17 02:15 10/17/17 02:14 Acetaminophen/ Hydrocodone Bitart ([place] 5/325) 1 tab Q6H PRN ORAL Severe Pain (Pain Scale 4-10) 09/17/17 08:15 09/24/17 08:14 Albuterol/ Ipratropium (Albuterol/ Ipratropium) 3 ml EVERY 4 HOURS PRN HHN Shortness of breath 09/18/17 06:45 09/23/17 06:44 Albuterol/ Ipratropium (Albuterol/ Ipratropium) 3 ml TIDRT HHN 09/22/17 19:00 09/27/17 18:59 09/22/17 20:27 Artificial Tears (Akwa-Tears) 2 drop Q2H PRN BOTH EYES Dry Eyes 09/18/17 12:15 10/18/17 12:14 09/20/17 08:47 Aspirin (ASA) 81 mg DAILY ORAL 09/17/17 09:00 10/17/17 08:59 09/22/17 09:37 Benzonatate (Tessalon Perles) 100 mg THREE TIMES A DAY PRN ORAL For Cough 09/18/17 06:45 10/18/17 06:44 Bupropion HCl (Wellbutrin XL) 150 mg DAILY ORAL 09/17/17 18:00 10/17/17 17:59 09/22/17 09:38 Cefepime HCl 500 mg/Dextrose 55 ml @ 110 mls/hr QHS IVPB 09/18/17 21:00 09/23/17 23:59 09/22/17 21:50 Docusate Sodium (Colace) 100 mg THREE TIMES A DAY ORAL 09/18/17 18:00 10/18/17 17:59 09/22/17 18:28 Dorzolamide/ Timolol (Cosopt) 1 drop BID BOTH EYES 09/18/17 09:00 10/18/17 08:59 09/22/17 18:27 Epoetin Jerod (Procrit (for ESRD on dialysis)) 10,000 units MON-MON-MON SUBQ 09/18/17 21:00 10/18/17 20:59 09/22/17 21:51 Famotidine (Pepcid) 20 mg DAILY ORAL 09/18/17 09:00 10/18/17 08:59 09/22/17 09:38 Heparin Sodium (Porcine) (Heparin 5000 units/ml) 5,000 units EVERY 8 HOURS SUBQ 09/17/17 14:00 10/17/17 13:59 09/21/17 05:23 Methylprednisolone Sodium Succinate (Solu-MEDROL) 40 mg Q12H IVP 09/22/17 15:00 10/22/17 14:59 09/22/17 16:02 Mirtazapine (Remeron) 15 mg BEDTIME ORAL 09/17/17 21:00 10/17/17 20:59 09/22/17 21:50 Ondansetron HCl (Zofran) 4 mg Q4H PRN IVP Nausea & Vomiting 09/17/17 02:15 10/17/17 02:14 Sevelamer Carbonate (Renvela) 800 mg THREE TIMES A DAY ORAL 09/18/17 18:00 10/18/17 17:59 09/22/17 18:28 Tamsulosin HCl (Flomax) 0.4 mg BID ORAL 09/18/17 09:00 10/18/17 08:59 09/22/17 18:28 Assessment/Plan Status: stable Assessment/Plan MDD -Remeron 15mg qhs -provided MEL/Trudi Garcia M.D. Sep 22, 2017 22:22
[2017-09-23] VITALS: BP 153/88
[2017-09-23] MEDS: Solu-MEDROL 40mg Inj IVP SCH ×2 (02:31→15:52)
[2017-09-23 04:42] VITALS: BP 120/61
[2017-09-23] MEDS: Heparin 5000 units/ml inj SUBQ SCH ×3 (05:24→21:08)
[2017-09-23] MEDS: Albuterol/Ipratropium 3ml neb HHN SCH ×3 (07:46→19:26)
[2017-09-23 08:00] VITALS: BP 123/65
[2017-09-23 08:03] LABS: HEMATOCRIT 28.7 % (42.0-52.0); HEMOGLOBIN 9.3 G/DL (14.2-18.0); MEAN CORPUSCULAR VOLUME 97 FL (80-99); PLATELET COUNT 290 K/UL (150-450); RED BLOOD COUNT 2.96 M/UL (4.70-6.10); RED CELL DISTRIBUTION WIDTH 14.7 % (11.6-14.8)
[2017-09-23 08:08] LABS: ANION GAP 8 mmol/L (5-15); BLOOD UREA NITROGEN 53 mg/dL (7-18); CALCIUM 8.4 MG/DL (8.5-10.1); CARBON DIOXIDE 27 MMOL/L (21-32); CHLORIDE 103 MMOL/L (98-107); CREATININE 5.5 MG/DL (0.55-1.30); POTASSIUM 5.3 MMOL/L (3.5-5.1); SODIUM 138 MMOL/L (136-145)
[2017-09-23 08:14] LABS: WHITE BLOOD COUNT 23.2 K/UL (4.8-10.8)
[2017-09-23 08:23] LABS: ALANINE AMINOTRANSFERASE 37 U/L (12-78); ALBUMIN 2.7 G/DL (3.4-5.0); ALKALINE PHOSPHATASE 152 U/L (46-116); ASPARTATE AMINO TRANSFERASE 22 U/L (15-37); BILIRUBIN,DIRECT 0.1 MG/DL (0.0-0.3); BILIRUBIN,TOTAL 0.7 MG/DL (0.2-1.0); PHOSPHORUS 3.7 MG/DL (2.5-4.9)
[2017-09-23] MEDS: Aspirin Baby 81mg ORAL SCH (08:25)
[2017-09-23] MEDS: Cosopt Opth Soln 10 mL Btl BOTH EYES SCH ×2 (08:25→17:39)
[2017-09-23] MEDS: BuPROPion XL 150mg tab ORAL SCH (08:25)
[2017-09-23] MEDS: Tamsulosin 0.4mg cap ORAL SCH ×2 (08:25→17:39)
[2017-09-23] MEDS: Docusate 100mg cap ORAL SCH ×3 (08:30→17:39)
--- NOTE | 2017-09-23 10:58 | Nephrology Progress Note ---
Assessment/Plan Problem List: (1) ESRD (end stage renal disease) on dialysis (2) HTN (hypertension) (3) Pneumonia (4) Depression Assessment status: - End-stage renal disease, on hemodialysis. - Left lower lobe pneumonia. - Leukocytosis. - Hypertension. - Depression. Plan Plan; HD today Adjust BP meds continue per consultants taper steroids as possible FU with CS MDs Subjective ROS Limited/Unobtainable: No Constitutional: Reports: malaise Objective Objective Last 24 Hour Vital Signs Date Time Temp Pulse Resp B/P (MAP) Pulse Ox O2 Delivery O2 Flow Rate FiO2 09/23/17 08:00 98.1 70 20 123/65 93 09/23/17 07:58 71 20 98 Room Air 21 09/23/17 07:47 68 18 96 Room Air 21 09/23/17 07:47 Room Air 09/23/17 07:47 96 Room Air 21 09/23/17 04:42 98.2 68 20 120/61 91 Room Air 09/23/17 00:00 98.4 73 20 153/88 90 Room Air 09/22/17 20:35 74 18 97 Room Air 21 09/22/17 20:28 Room Air 09/22/17 20:28 78 20 96 Room Air 21 09/22/17 20:27 97 Room Air 21 09/22/17 20:21 98.4 64 20 128/73 90 Room Air 09/22/17 16:00 Room Air 09/22/17 15:55 98.4 73 20 128/70 95 09/22/17 15:00 Room Air 09/22/17 15:00 Room Air 09/22/17 12:06 76 18 95 Room Air 21 09/22/17 11:59 76 18 95 Room Air 21 09/22/17 11:51 98.0 75 20 96/52 95 Room Air Intake and Output 09/22/17 09/23/17 19:00 07:00 Intake Total 840 ml Output Total 600 ml 1800 ml Balance 240 ml -1800 ml Intake Oral 840 ml Output Urine Total 600 ml 1800 ml Laboratory Tests 09/23/17 07:30: White Blood Count 23.2*H, Red Blood Count 2.96L, Hemoglobin 9.3L, Hematocrit 28.7L, Mean Corpuscular Volume 97, Mean Corpuscular Hemoglobin 31.5H, Mean Corpuscular Hemoglobin Concent 32.5, Red Cell Distribution Width 14.7, Platelet Count 290, Mean Platelet Volume 7.4, Neutrophils (%) (Auto) , Lymphocytes (%) ( Auto) , Monocytes (%) (Auto) , Eosinophils (%) (Auto) , Basophils (%) (Auto) , Neutrophils % (Manual) [Pending], Lymphocytes % (Manual) [Pending], Platelet Estimate [Pending], Platelet Morphology [Pending], Sodium Level 138, Potassium Level 5.3H, Chloride Level 103, Carbon Dioxide Level 27, Anion Gap 8, Blood Urea Nitrogen 53H, Creatinine 5.5H, Estimat Glomerular Filtration Rate , Glucose Level 151H, Uric Acid 6.3, Calcium Level 8.4L, Phosphorus Level 3.7, Magnesium Level 2.4, Total Bilirubin 0.7, Direct Bilirubin 0.1, Aspartate Amino Transf (AST/SGOT) 22, Alanine Aminotransferase (ALT/SGPT) 37, Alkaline Phosphatase 152H, Troponin I 0.000, C-Reactive Protein, Quantitative 4.9H, Pro-B -Type Natriuretic Peptide 587H, Total Protein 7.3, Albumin 2.7L Height (Feet): 5 Height (Inches): 11.00 Weight (Pounds): 201 General Appearance: no apparent distress Respiratory/Chest: decreased breath sounds Objective no change ROMEL RAJAN Sep 23, 2017 10:58
[2017-09-23 12:00] VITALS: BP 126/70
--- NOTE | 2017-09-23 12:28 | Infectious Diseases Prog Note ---
Assessment/Plan Assessment/Plan Assessment: LLL Pna (seen in OSH CXR), however CXR here neg -CXR 09/22 No acute process -CXR: No radiographic evidence of acute cardiopulmonary disease. -influenza neg -sp cx normal ian Leukocytosis, worsening ( on steroids ) -afebrile -u/a neg; Ucx NTD -Bcx p HTN MDD recent ESRD started on HD on Mid Aug 2017 (at [facility]) s/p perma cath R upper chest Plan: -Continue empiric Cefepime # / -09/21 SP Azithromycin #5 -KUB -may consider CT abd/p if abd pain, fever or worsening WBC -f/u cx -Monitor CBC/BMP, temperatures; Trend WBC -aspiration precautions US of abd ( ro biliary dis ) Subjective Constitutional: Denies: no symptoms, fever, chills, fatigue, anorexia, drenching sweats, other Allergies: Coded Allergies: CIPROFLOXACIN (Verified Allergy, Unknown, 09/17/17) PENICILLINS (Verified Allergy, Unknown, 09/20/17) tolareted Cefepime Sep 2017 Subjective feeling better Objective Vital Signs Last 24 Hour Vital Signs Date Time Temp Pulse Resp B/P (MAP) Pulse Ox O2 Delivery O2 Flow Rate FiO2 09/23/17 08:00 98.1 70 20 123/65 93 09/23/17 07:58 71 20 98 Room Air 21 09/23/17 07:47 68 18 96 Room Air 21 09/23/17 07:47 Room Air 09/23/17 07:47 96 Room Air 21 09/23/17 04:42 98.2 68 20 120/61 91 Room Air 09/23/17 00:00 98.4 73 20 153/88 90 Room Air 09/22/17 20:35 74 18 97 Room Air 21 09/22/17 20:28 Room Air 09/22/17 20:28 78 20 96 Room Air 21 09/22/17 20:27 97 Room Air 21 09/22/17 20:21 98.4 64 20 128/73 90 Room Air 09/22/17 16:00 Room Air 09/22/17 15:55 98.4 73 20 128/70 95 09/22/17 15:00 Room Air 09/22/17 15:00 Room Air Height (Feet): 5 Height (Inches): 11.00 Weight (Pounds): 201 HEENT: atraumatic Respiratory/Chest: lungs clear Cardiovascular: regular rhythm Abdomen: no organomegaly Microbiology Date/Time Source Procedure Growth Status 09/21/17 13:15 Blood Blood Culture - Preliminary NO GROWTH AFTER 24 HOURS Resulted 09/21/17 13:00 Blood Blood Culture - Preliminary NO GROWTH AFTER 24 HOURS Resulted 09/21/17 15:30 Indwelling Cath Urine Culture - Final NO GROWTH AFTER 48 HOURS Complete Laboratory Tests Test 09/23/17 07:30 White Blood Count 23.2 K/UL (4.8-10.8) *H Red Blood Count 2.96 M/UL (4.70-6.10) L Hemoglobin 9.3 G/DL (14.2-18.0) L Hematocrit 28.7 % (42.0-52.0) L Mean Corpuscular Volume 97 FL (80-99) Mean Corpuscular Hemoglobin 31.5 PG (27.0-31.0) H Mean Corpuscular Hemoglobin Concent 32.5 G/DL (32.0-36.0) Red Cell Distribution Width 14.7 % (11.6-14.8) Platelet Count 290 K/UL (150-450) Mean Platelet Volume 7.4 FL (6.5-10.1) Neutrophils (%) (Auto) % (45.0-75.0) Lymphocytes (%) (Auto) % (20.0-45.0) Monocytes (%) (Auto) % (1.0-10.0) Eosinophils (%) (Auto) % (0.0-3.0) Basophils (%) (Auto) % (0.0-2.0) Neutrophils % (Manual) Pending Lymphocytes % (Manual) Pending Platelet Estimate Pending Platelet Morphology Pending Sodium Level 138 MMOL/L (136-145) Potassium Level 5.3 MMOL/L (3.5-5.1) H Chloride Level 103 MMOL/L (98-107) Carbon Dioxide Level 27 MMOL/L (21-32) Anion Gap 8 mmol/L (5-15) Blood Urea Nitrogen 53 mg/dL (7-18) H Creatinine 5.5 MG/DL (0.55-1.30) H Estimat Glomerular Filtration Rate mL/min (>60) Glucose Level 151 MG/DL (74-106) H Uric Acid 6.3 MG/DL (2.6-7.2) Calcium Level 8.4 MG/DL (8.5-10.1) L Phosphorus Level 3.7 MG/DL (2.5-4.9) Magnesium Level 2.4 MG/DL (1.8-2.4) Total Bilirubin 0.7 MG/DL (0.2-1.0) Direct Bilirubin 0.1 MG/DL (0.0-0.3) Aspartate Amino Transf (AST/SGOT) 22 U/L (15-37) Alanine Aminotransferase (ALT/SGPT) 37 U/L (12-78) Alkaline Phosphatase 152 U/L (46-116) H Troponin I 0.000 ng/mL (0.000-0.056) C-Reactive Protein, Quantitative 4.9 mg/dL (0.00-0.90) H Pro-B-Type Natriuretic Peptide 587 pg/mL (0-125) H Total Protein 7.3 G/DL (6.4-8.2) Albumin 2.7 G/DL (3.4-5.0) L Current Medications Medications (Trade) Dose Ordered Sig/Jessica Route PRN Reason Start Time Stop Time Status Last Admin Dose Admin Acetaminophen (Tylenol) 650 mg Q6H PRN ORAL Mild Pain/Temp > 100.5 09/17/17 02:15 10/17/17 02:14 Acetaminophen/ Hydrocodone Bitart ([place] 5/325) 1 tab Q6H PRN ORAL Severe Pain (Pain Scale 4-10) 09/17/17 08:15 09/24/17 08:14 Albuterol/ Ipratropium (Albuterol/ Ipratropium) 3 ml TIDRT HHN 09/22/17 19:00 09/27/17 18:59 09/23/17 07:46 Artificial Tears (Akwa-Tears) 2 drop Q2H PRN BOTH EYES Dry Eyes 09/18/17 12:15 10/18/17 12:14 09/20/17 08:47 Aspirin (ASA) 81 mg DAILY ORAL 09/17/17 09:00 10/17/17 08:59 09/23/17 08:25 Benzonatate (Tessalon Perles) 100 mg THREE TIMES A DAY PRN ORAL For Cough 09/18/17 06:45 1/31/18 06:44 Bupropion HCl (Wellbutrin XL) 150 mg DAILY ORAL 09/17/17 18:00 10/17/17 17:59 09/23/17 08:25 Cefepime HCl 500 mg/Dextrose 55 ml @ 110 mls/hr QHS IVPB 09/18/17 21:00 09/23/17 23:59 09/22/17 21:50 Docusate Sodium (Colace) 100 mg THREE TIMES A DAY ORAL 09/18/17 18:00 10/18/17 17:59 09/23/17 08:30 Dorzolamide/ Timolol (Cosopt) 1 drop BID BOTH EYES 09/18/17 09:00 10/18/17 08:59 09/23/17 08:25 Epoetin Jerod (Procrit (for ESRD on dialysis)) 10,000 units MON-MON-MON SUBQ 09/18/17 21:00 10/18/17 20:59 09/22/17 21:51 Famotidine (Pepcid) 20 mg DAILY ORAL 09/18/17 09:00 10/18/17 08:59 09/23/17 08:25 Heparin Sodium (Porcine) (Heparin 5000 units/ml) 5,000 units EVERY 8 HOURS SUBQ 09/17/17 14:00 10/17/17 13:59 09/23/17 05:24 Methylprednisolone Sodium Succinate (Solu-MEDROL) 40 mg Q12H IVP 09/22/17 15:00 10/22/17 14:59 09/23/17 02:31 Mirtazapine (Remeron) 15 mg BEDTIME ORAL 09/17/17 21:00 10/17/17 20:59 09/22/17 21:50 Ondansetron HCl (Zofran) 4 mg Q4H PRN IVP Nausea & Vomiting 09/17/17 02:15 10/17/17 02:14 Sevelamer Carbonate (Renvela) 800 mg THREE TIMES A DAY ORAL 09/18/17 18:00 10/18/17 17:59 09/23/17 08:25 Tamsulosin HCl (Flomax) 0.4 mg BID ORAL 09/18/17 09:00 10/18/17 08:59 09/23/17 08:25 KARSTEN GALLEGOS M.D. Sep 23, 2017 12:28
--- NOTE | 2017-09-23 13:21 | Pulmonology Progress Note ---
Assessment/Plan Assessment/Plan ASSESSMENT LLL PNA acute bronchospasm ESRD on HD HTN depression anemia of chronic kidney disease PLAN OF CARE MS floor O2 HHN ATC and prn taper IV steroids , plan dc in am if stable resp status abx ID follows bl cx P, UA negative aspiration precautions ST eval nephro follows HD as per nephro, monitor renal, lytes, replace as needed BP management, currently normotensive monitor HH, transfuse prn, on EPO anemia w/up noted DVT GI prophylaxis continue Wellbutrin, Remeron case discussed and evaluated by supervising physician Subjective Allergies: Coded Allergies: CIPROFLOXACIN (Verified Allergy, Unknown, 09/17/17) PENICILLINS (Verified Allergy, Unknown, 09/20/17) tolareted Cefepime Sep 2017 Subjective leukocytosis trending up, afebrile pulse ox stable on RA, no cough wheezing and respiratory symptoms improving Objective Last 24 Hour Vital Signs Date Time Temp Pulse Resp B/P (MAP) Pulse Ox O2 Delivery O2 Flow Rate FiO2 09/23/17 12:00 97.8 69 18 126/70 95 09/23/17 08:00 98.1 70 20 123/65 93 09/23/17 07:58 71 20 98 Room Air 21 09/23/17 07:47 68 18 96 Room Air 21 09/23/17 07:47 Room Air 09/23/17 07:47 96 Room Air 21 09/23/17 04:42 98.2 68 20 120/61 91 Room Air 09/23/17 00:00 98.4 73 20 153/88 90 Room Air 09/22/17 20:35 74 18 97 Room Air 21 09/22/17 20:28 Room Air 09/22/17 20:28 78 20 96 Room Air 21 09/22/17 20:27 97 Room Air 21 09/22/17 20:21 98.4 64 20 128/73 90 Room Air 09/22/17 16:00 Room Air 09/22/17 15:55 98.4 73 20 128/70 95 09/22/17 15:00 Room Air 09/22/17 15:00 Room Air Intake and Output 09/22/17 09/23/17 19:00 07:00 Intake Total 840 ml Output Total 600 ml 1800 ml Balance 240 ml -1800 ml Intake Oral 840 ml Output Urine Total 600 ml 1800 ml Objective General Appearance: no acute distress HEENT: normocephalic, atraumatic, anicteric, mucous membranes moist, PERRL Respiratory/Chest: some scattered expiratory wheezes - Cardiovascular: normal peripheral pulses, normal rate, no JVD Abdomen: normal bowel sounds, soft, non tender Genitourinary: other - [place] Neurologic/Psychiatric: alert, responsive Musculoskeletal: atrophy - BLE Microbiology Date/Time Source Procedure Growth Status 09/21/17 13:15 Blood Blood Culture - Preliminary NO GROWTH AFTER 24 HOURS Resulted 09/21/17 13:00 Blood Blood Culture - Preliminary NO GROWTH AFTER 24 HOURS Resulted 09/21/17 15:30 Indwelling Cath Urine Culture - Final NO GROWTH AFTER 48 HOURS Complete Laboratory Tests 09/23/17 07:30: White Blood Count 23.2*H, Red Blood Count 2.96L, Hemoglobin 9.3L, Hematocrit 28.7L, Mean Corpuscular Volume 97, Mean Corpuscular Hemoglobin 31.5H, Mean Corpuscular Hemoglobin Concent 32.5, Red Cell Distribution Width 14.7, Platelet Count 290, Mean Platelet Volume 7.4, Neutrophils (%) (Auto) , Lymphocytes (%) ( Auto) , Monocytes (%) (Auto) , Eosinophils (%) (Auto) , Basophils (%) (Auto) , Neutrophils % (Manual) [Pending], Lymphocytes % (Manual) [Pending], Platelet Estimate [Pending], Platelet Morphology [Pending], Sodium Level 138, Potassium Level 5.3H, Chloride Level 103, Carbon Dioxide Level 27, Anion Gap 8, Blood Urea Nitrogen 53H, Creatinine 5.5H, Estimat Glomerular Filtration Rate , Glucose Level 151H, Uric Acid 6.3, Calcium Level 8.4L, Phosphorus Level 3.7, Magnesium Level 2.4, Total Bilirubin 0.7, Direct Bilirubin 0.1, Aspartate Amino Transf (AST/SGOT) 22, Alanine Aminotransferase (ALT/SGPT) 37, Alkaline Phosphatase 152H, Troponin I 0.000, C-Reactive Protein, Quantitative 4.9H, Pro-B -Type Natriuretic Peptide 587H, Total Protein 7.3, Albumin 2.7L Current Medications Medications (Trade) Dose Ordered Sig/Jessica Route PRN Reason Start Time Stop Time Status Last Admin Dose Admin Acetaminophen (Tylenol) 650 mg Q6H PRN ORAL Mild Pain/Temp > 100.5 09/17/17 02:15 10/17/17 02:14 Acetaminophen/ Hydrocodone Bitart ([place] 5/325) 1 tab Q6H PRN ORAL Severe Pain (Pain Scale 4-10) 09/23/17 14:15 09/30/17 23:59 UNV Albuterol/ Ipratropium (Albuterol/ Ipratropium) 3 ml Q4H PRN HHN Shortness of Breath 09/23/17 13:30 09/28/17 13:29 UNV Albuterol/ Ipratropium (Albuterol/ Ipratropium) 3 ml TIDRT HHN 09/22/17 19:00 09/27/17 18:59 09/23/17 07:46 Artificial Tears (Akwa-Tears) 2 drop Q2H PRN BOTH EYES Dry Eyes 09/18/17 12:15 10/18/17 12:14 09/20/17 08:47 Aspirin (ASA) 81 mg DAILY ORAL 09/17/17 09:00 10/17/17 08:59 09/23/17 08:25 Benzonatate (Tessalon Perles) 100 mg THREE TIMES A DAY PRN ORAL For Cough 09/18/17 06:45 10/18/17 06:44 Bupropion HCl (Wellbutrin XL) 150 mg DAILY ORAL 09/17/17 18:00 10/17/17 17:59 09/23/17 08:25 Cefepime HCl 500 mg/Dextrose 55 ml @ 110 mls/hr QHS IVPB 09/18/17 21:00 09/23/17 23:59 09/22/17 21:50 Docusate Sodium (Colace) 100 mg THREE TIMES A DAY ORAL 09/18/17 18:00 10/18/17 17:59 09/23/17 12:52 Dorzolamide/ Timolol (Cosopt) 1 drop BID BOTH EYES 09/18/17 09:00 10/18/17 08:59 09/23/17 08:25 Epoetin Jerod (Procrit (for ESRD on dialysis)) 10,000 units MON-WED-MON SUBQ 09/18/17 21:00 10/18/17 20:59 09/22/17 21:51 Famotidine (Pepcid) 20 mg DAILY ORAL 09/18/17 09:00 10/18/17 08:59 09/23/17 08:25 Heparin Sodium (Porcine) (Heparin 5000 units/ml) 5,000 units EVERY 8 HOURS SUBQ 09/17/17 14:00 10/17/17 13:59 09/23/17 12:55 Methylprednisolone Sodium Succinate (Solu-MEDROL) 30 mg Q12H IVP 09/23/17 15:00 10/23/17 14:59 UNV Mirtazapine (Remeron) 15 mg BEDTIME ORAL 09/17/17 21:00 10/17/17 20:59 09/22/17 21:50 Ondansetron HCl (Zofran) 4 mg Q4H PRN IVP Nausea & Vomiting 09/17/17 02:15 10/17/17 02:14 Sevelamer Carbonate (Renvela) 800 mg THREE TIMES A DAY ORAL 09/18/17 18:00 10/18/17 17:59 09/23/17 12:52 Tamsulosin HCl (Flomax) 0.4 mg BID ORAL 09/18/17 09:00 10/18/17 08:59 09/23/17 08:25 Azar (Hannavirtua voorhees)Suzy NP Sep 23, 2017 13:21
[2017-09-23] MEDS ORDERED: Albuterol/Ipratropium 3ml neb HHN PRN (13:30)
[2017-09-23] MEDS ORDERED: Norco 5mg/325mg tab ORAL PRN (14:15)
--- NOTE | 2017-09-23 14:40 | Internal Med Progress Note ---
Subjective Date of Service: Sep 23, 2017 Physician Name SandraKarma Attending Physician Dung Mustafa MD Current Medications Medications (Trade) Dose Ordered Sig/Jessica Route PRN Reason Start Time Stop Time Status Last Admin Dose Admin Acetaminophen (Tylenol) 650 mg Q6H PRN ORAL Mild Pain/Temp > 100.5 09/17/17 02:15 10/17/17 02:14 Acetaminophen/ Hydrocodone Bitart ([place] 5/325) 1 tab Q6H PRN ORAL Severe Pain (Pain Scale 4-10) 09/23/17 14:15 09/30/17 14:14 Albuterol/ Ipratropium (Albuterol/ Ipratropium) 3 ml Q4H PRN HHN Shortness of Breath 09/23/17 13:30 09/28/17 13:29 Albuterol/ Ipratropium (Albuterol/ Ipratropium) 3 ml TIDRT HHN 09/22/17 19:00 09/27/17 18:59 09/23/17 13:21 Artificial Tears (Akwa-Tears) 2 drop Q2H PRN BOTH EYES Dry Eyes 09/18/17 12:15 10/18/17 12:14 09/20/17 08:47 Aspirin (ASA) 81 mg DAILY ORAL 09/17/17 09:00 10/17/17 08:59 09/23/17 08:25 Benzonatate (Tessalon Perles) 100 mg THREE TIMES A DAY PRN ORAL For Cough 09/18/17 06:45 10/18/17 06:44 Bupropion HCl (Wellbutrin XL) 150 mg DAILY ORAL 09/17/17 18:00 10/17/17 17:59 09/23/17 08:25 Cefepime HCl 500 mg/Dextrose 55 ml @ 110 mls/hr QHS IVPB 09/18/17 21:00 09/23/17 23:59 09/22/17 21:50 Docusate Sodium (Colace) 100 mg THREE TIMES A DAY ORAL 09/18/17 18:00 10/18/17 17:59 09/23/17 12:52 Dorzolamide/ Timolol (Cosopt) 1 drop BID BOTH EYES 09/18/17 09:00 10/18/17 08:59 09/23/17 08:25 Epoetin Jerod (Procrit (for ESRD on dialysis)) 10,000 units MON-MON-MON SUBQ 09/18/17 21:00 10/18/17 20:59 09/22/17 21:51 Famotidine (Pepcid) 20 mg DAILY ORAL 09/18/17 09:00 10/18/17 08:59 09/23/17 08:25 Heparin Sodium (Porcine) (Heparin 5000 units/ml) 5,000 units EVERY 8 HOURS SUBQ 09/17/17 14:00 10/17/17 13:59 09/23/17 12:55 Methylprednisolone Sodium Succinate (Solu-MEDROL) 20 mg Q12H IVP 09/23/17 15:00 10/23/17 14:59 Mirtazapine (Remeron) 15 mg BEDTIME ORAL 09/17/17 21:00 10/17/17 20:59 09/22/17 21:50 Ondansetron HCl (Zofran) 4 mg Q4H PRN IVP Nausea & Vomiting 09/17/17 02:15 10/17/17 02:14 Sevelamer Carbonate (Renvela) 800 mg THREE TIMES A DAY ORAL 09/18/17 18:00 10/18/17 17:59 09/23/17 12:52 Tamsulosin HCl (Flomax) 0.4 mg BID ORAL 09/18/17 09:00 10/18/17 08:59 09/23/17 08:25 Allergies: Coded Allergies: CIPROFLOXACIN (Verified Allergy, Unknown, 09/17/17) PENICILLINS (Verified Allergy, Unknown, 09/20/17) tolareted Cefepime Sep 2017 ROS Limited/Unobtainable: No Constitutional: Reports: no symptoms HEENT: Reports: no symptoms Cardiovascular: Reports: no symptoms Respiratory: Reports: shortness of breath Gastrointestinal/Abdominal: Reports: no symptoms Genitourinary: Reports: no symptoms Neurologic/Psychiatric: Reports: no symptoms Subjective 81 YO M with shortness of breath. Now pneumonia. Cover for Int Med-Dr Mustafa. Objective Last Vital Signs Date Time Temp Pulse Resp B/P (MAP) Pulse Ox O2 Delivery O2 Flow Rate FiO2 09/23/17 13:31 64 18 98 Room Air 21 09/23/17 12:00 97.8 126/70 09/18/17 12:11 2.0 Laboratory Tests Test 09/23/17 07:30 White Blood Count 23.2 K/UL (4.8-10.8) *H Red Blood Count 2.96 M/UL (4.70-6.10) L Hemoglobin 9.3 G/DL (14.2-18.0) L Hematocrit 28.7 % (42.0-52.0) L Mean Corpuscular Volume 97 FL (80-99) Mean Corpuscular Hemoglobin 31.5 PG (27.0-31.0) H Mean Corpuscular Hemoglobin Concent 32.5 G/DL (32.0-36.0) Red Cell Distribution Width 14.7 % (11.6-14.8) Platelet Count 290 K/UL (150-450) Mean Platelet Volume 7.4 FL (6.5-10.1) Neutrophils (%) (Auto) % (45.0-75.0) Lymphocytes (%) (Auto) % (20.0-45.0) Monocytes (%) (Auto) % (1.0-10.0) Eosinophils (%) (Auto) % (0.0-3.0) Basophils (%) (Auto) % (0.0-2.0) Differential Total Cells Counted 100 Neutrophils % (Manual) 88 % (45-75) H Lymphocytes % (Manual) 9 % (20-45) L Monocytes % (Manual) 3 % (1-10) Eosinophils % (Manual) 0 % (0-3) Basophils % (Manual) 0 % (0-2) Band Neutrophils 0 % (0-8) Platelet Estimate Adequate Platelet Morphology Normal Hypochromasia 2+ Anisocytosis 1+ Sodium Level 138 MMOL/L (136-145) Potassium Level 5.3 MMOL/L (3.5-5.1) H Chloride Level 103 MMOL/L (98-107) Carbon Dioxide Level 27 MMOL/L (21-32) Anion Gap 8 mmol/L (5-15) Blood Urea Nitrogen 53 mg/dL (7-18) H Creatinine 5.5 MG/DL (0.55-1.30) H Estimat Glomerular Filtration Rate mL/min (>60) Glucose Level 151 MG/DL (74-106) H Uric Acid 6.3 MG/DL (2.6-7.2) Calcium Level 8.4 MG/DL (8.5-10.1) L Phosphorus Level 3.7 MG/DL (2.5-4.9) Magnesium Level 2.4 MG/DL (1.8-2.4) Total Bilirubin 0.7 MG/DL (0.2-1.0) Direct Bilirubin 0.1 MG/DL (0.0-0.3) Aspartate Amino Transf (AST/SGOT) 22 U/L (15-37) Alanine Aminotransferase (ALT/SGPT) 37 U/L (12-78) Alkaline Phosphatase 152 U/L (46-116) H Troponin I 0.000 ng/mL (0.000-0.056) C-Reactive Protein, Quantitative 4.9 mg/dL (0.00-0.90) H Pro-B-Type Natriuretic Peptide 587 pg/mL (0-125) H Total Protein 7.3 G/DL (6.4-8.2) Albumin 2.7 G/DL (3.4-5.0) L Microbiology Date/Time Source Procedure Growth Status 09/21/17 13:15 Blood Blood Culture - Preliminary NO GROWTH AFTER 24 HOURS Resulted 09/21/17 13:00 Blood Blood Culture - Preliminary NO GROWTH AFTER 24 HOURS Resulted 09/21/17 15:30 Indwelling Cath Urine Culture - Final NO GROWTH AFTER 48 HOURS Complete Intake and Output 09/22/17 09/23/17 19:00 07:00 Intake Total 840 ml Output Total 600 ml 1800 ml Balance 240 ml -1800 ml Intake Oral 840 ml Output Urine Total 600 ml 1800 ml Objective General Appearance: WD/WN, no apparent distress, alert, mild distress EENT: PERRL/EOMI, normal ENT inspection, TMs normal Neck: non-tender, normal alignment, supple, normal inspection Cardiovascular: normal peripheral pulses, normal rate, regular rhythm, no gallop/murmur, no JVD Respiratory/Chest: chest wall non-tender, no respiratory distress, no accessory muscle use, crackles/rales, rhonchi - bilaterally, expiratory wheezing Abdomen: normal bowel sounds, non tender, soft, no organomegaly, no mass Extremities: normal range of motion 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 Continue albuterol nebs and IV solumedrol (2) ESRD (end stage renal disease) on dialysis (3) Leukocytosis Assessment & Plan: Improving. cont abx (4) HTN (hypertension) (5) Depression Assessment & Plan: Continue mirtazipime (6) Pneumonia Assessment & Plan: Continue cefepime-see ID note. KARMA GUILLEN Sep 23, 2017 14:39
[2017-09-23] MEDS ORDERED: Solu-MEDROL 40mg Inj IVP SCH (15:00)
[2017-09-23 16:00] VITALS: BP 122/66
[2017-09-23 20:00] VITALS: BP 124/61
[2017-09-23] MEDS: Cefepime HCl 500 MG in D5W 55 ML IVPB SCH (21:06)
[2017-09-23] MEDS ORDERED: NS 500ML ONE (22:38)
[2017-09-23] MEDS ORDERED: Tubing IV Secondary IV ONE (22:38)
[2017-09-24] VITALS: BP 122/68
[2017-09-24] MEDS: Solu-MEDROL 40mg Inj IVP SCH ×2 (03:01→14:42)
[2017-09-24 04:00] VITALS: BP 119/72
[2017-09-24] MEDS: Heparin 5000 units/ml inj SUBQ SCH ×3 (06:00→21:12)
[2017-09-24 07:18] LABS: HEMATOCRIT 27.9 % (42.0-52.0); HEMOGLOBIN 9.1 G/DL (14.2-18.0); MEAN CORPUSCULAR VOLUME 96 FL (80-99); PLATELET COUNT 276 K/UL (150-450); RED BLOOD COUNT 2.92 M/UL (4.70-6.10); RED CELL DISTRIBUTION WIDTH 14.6 % (11.6-14.8)
[2017-09-24 07:33] LABS: WHITE BLOOD COUNT 23.7 K/UL (4.8-10.8)
[2017-09-24 07:39] LABS: ANION GAP 9 mmol/L (5-15); BLOOD UREA NITROGEN 48 mg/dL (7-18); CALCIUM 7.7 MG/DL (8.5-10.1); CARBON DIOXIDE 27 MMOL/L (21-32); CHLORIDE 101 MMOL/L (98-107); CREATININE 4.4 MG/DL (0.55-1.30); SODIUM 137 MMOL/L (136-145)
[2017-09-24] MEDS: Albuterol/Ipratropium 3ml neb HHN SCH ×3 (07:43→18:05)
[2017-09-24 08:00] VITALS: BP 121/70
[2017-09-24] MEDS: Aspirin Baby 81mg ORAL SCH (08:27)
[2017-09-24] MEDS: Docusate 100mg cap ORAL SCH ×3 (08:27→18:00)
[2017-09-24] MEDS: Tamsulosin 0.4mg cap ORAL SCH ×2 (08:28→18:27)
[2017-09-24] MEDS: BuPROPion XL 150mg tab ORAL SCH (08:28)
[2017-09-24] MEDS: Cosopt Opth Soln 10 mL Btl BOTH EYES SCH ×2 (08:37→18:27)
--- NOTE | 2017-09-24 10:15 | Nephrology Progress Note ---
Assessment/Plan Problem List: (1) ESRD (end stage renal disease) on dialysis (2) HTN (hypertension) (3) Pneumonia (4) Depression Assessment status: - End-stage renal disease, on hemodialysis. - Left lower lobe pneumonia. - Leukocytosis. - Hypertension. - Depression. Plan Plan; HD 09/25 Adjust BP meds continue per consultants taper steroids as possible FU with CS MDs Subjective ROS Limited/Unobtainable: No Constitutional: Reports: malaise Objective Objective Last 24 Hour Vital Signs Date Time Temp Pulse Resp B/P (MAP) Pulse Ox O2 Delivery O2 Flow Rate FiO2 09/24/17 09:25 69 18 98 Room Air 21 09/24/17 09:15 70 18 98 Room Air 21 09/24/17 08:00 98.1 73 20 121/70 97 09/24/17 07:43 Room Air 09/24/17 07:43 97 Room Air 21 09/24/17 04:00 98.0 69 21 119/72 96 09/24/17 00:00 97.7 69 21 122/68 95 09/23/17 20:00 98.1 72 21 124/61 95 09/23/17 19:34 69 18 97 Room Air 21 09/23/17 19:28 96 Room Air 09/23/17 19:28 65 18 Nasal Cannula 2.0 28 09/23/17 19:27 Room Air 09/23/17 19:26 65 20 97 Room Air 09/23/17 19:10 Room Air 2.0 21 09/23/17 16:00 97.8 72 18 122/66 95 09/23/17 15:40 Room Air 2.0 09/23/17 13:31 64 18 98 Room Air 21 09/23/17 13:21 69 20 98 Room Air 09/23/17 12:00 97.8 69 18 126/70 95 Intake and Output 09/23/17 09/24/17 19:00 07:00 Intake Total 840 ml 240 ml Output Total 800 ml 1800 ml Balance 40 ml -1560 ml Intake Oral 840 ml 240 ml Output Urine Total 800 ml 800 ml Hemodialysis UF 1000 ml # Bowel Movements 1 Laboratory Tests 09/24/17 06:45: White Blood Count 23.7*H, Red Blood Count 2.92L, Hemoglobin 9.1L, Hematocrit 27.9L, Mean Corpuscular Volume 96, Mean Corpuscular Hemoglobin 31.3H, Mean Corpuscular Hemoglobin Concent 32.7, Red Cell Distribution Width 14.6, Platelet Count 276, Mean Platelet Volume 7.6, Neutrophils (%) (Auto) , Lymphocytes (%) ( Auto) , Monocytes (%) (Auto) , Eosinophils (%) (Auto) , Basophils (%) (Auto) , Differential Total Cells Counted 100, Neutrophils % (Manual) 88H, Lymphocytes % (Manual) 7L, Monocytes % (Manual) 5, Eosinophils % (Manual) 0, Basophils % ( Manual) 0, Band Neutrophils 0, Platelet Estimate Adequate, Platelet Morphology Normal, Hypochromasia 1+, Anisocytosis 1+, Sodium Level 137, Potassium Level 4.0 , Chloride Level 101, Carbon Dioxide Level 27, Anion Gap 9, Blood Urea Nitrogen 48H, Creatinine 4.4H, Estimat Glomerular Filtration Rate , Glucose Level 194H, Calcium Level 7.7L Height (Feet): 5 Height (Inches): 11.00 Weight (Pounds): 201 General Appearance: no apparent distress Cardiovascular: normal rate Respiratory/Chest: decreased breath sounds Abdomen: soft Objective no change ROMEL RAJAN Sep 24, 2017 10:15
[2017-09-24 12:00] VITALS: BP 126/73
--- NOTE | 2017-09-24 14:22 | General Progress Note ---
Assessment/Plan Status: stable, progressing Subjective Date patient seen: Sep 23, 2017 Neurologic/Psychiatric: Reports: anxiety, depressed, emotional problems Allergies: Coded Allergies: CIPROFLOXACIN (Verified Allergy, Unknown, 09/17/17) PENICILLINS (Verified Allergy, Unknown, 09/20/17) tolareted Cefepime Sep 2017 Objective Last 24 Hour Vital Signs Date Time Temp Pulse Resp B/P (MAP) Pulse Ox O2 Delivery O2 Flow Rate FiO2 09/24/17 13:00 Room Air 09/24/17 13:00 Room Air 09/24/17 12:00 98.0 70 18 126/73 96 09/24/17 09:25 69 18 98 Room Air 21 09/24/17 09:15 70 18 98 Room Air 21 09/24/17 08:00 98.1 73 20 121/70 97 09/24/17 07:43 Room Air 09/24/17 07:43 97 Room Air 21 09/24/17 04:00 98.0 69 21 119/72 96 09/24/17 00:00 97.7 69 21 122/68 95 09/23/17 20:00 98.1 72 21 124/61 95 09/23/17 19:34 69 18 97 Room Air 21 09/23/17 19:28 96 Room Air 21 09/23/17 19:28 65 18 Nasal Cannula 2.0 28 09/23/17 19:27 Room Air 09/23/17 19:26 65 20 97 Room Air 21 09/23/17 19:10 Room Air 2.0 21 09/23/17 16:00 97.8 72 18 122/66 95 09/23/17 15:40 Room Air 2.0 21 Intake and Output 09/23/17 09/24/17 19:00 07:00 Intake Total 840 ml 240 ml Output Total 800 ml 1800 ml Balance 40 ml -1560 ml Intake Oral 840 ml 240 ml Output Urine Total 800 ml 800 ml Hemodialysis UF 1000 ml # Bowel Movements 1 Laboratory Tests 09/24/17 06:45: White Blood Count 23.7*H, Red Blood Count 2.92L, Hemoglobin 9.1L, Hematocrit 27.9L, Mean Corpuscular Volume 96, Mean Corpuscular Hemoglobin 31.3H, Mean Corpuscular Hemoglobin Concent 32.7, Red Cell Distribution Width 14.6, Platelet Count 276, Mean Platelet Volume 7.6, Neutrophils (%) (Auto) , Lymphocytes (%) ( Auto) , Monocytes (%) (Auto) , Eosinophils (%) (Auto) , Basophils (%) (Auto) , Differential Total Cells Counted 100, Neutrophils % (Manual) 88H, Lymphocytes % (Manual) 7L, Monocytes % (Manual) 5, Eosinophils % (Manual) 0, Basophils % ( Manual) 0, Band Neutrophils 0, Platelet Estimate Adequate, Platelet Morphology Normal, Hypochromasia 1+, Anisocytosis 1+, Sodium Level 137, Potassium Level 4.0 , Chloride Level 101, Carbon Dioxide Level 27, Anion Gap 9, Blood Urea Nitrogen 48H, Creatinine 4.4H, Estimat Glomerular Filtration Rate , Glucose Level 194H, Calcium Level 7.7L Height (Feet): 5 Height (Inches): 11.00 Weight (Pounds): 201 General Appearance: alert Neurologic: alert, oriented x 3, responsive, depressed affect Trudi Escobar M.D. Sep 24, 2017 14:22
--- NOTE | 2017-09-24 14:24 | Internal Med Progress Note ---
Subjective Date of Service: Sep 24, 2017 Physician Name Guillen,Karam Attending Physician Dung Mustafa MD Current Medications Medications (Trade) Dose Ordered Sig/Jessica Route PRN Reason Start Time Stop Time Status Last Admin Dose Admin Acetaminophen (Tylenol) 650 mg Q6H PRN ORAL Mild Pain/Temp > 100.5 09/17/17 02:15 10/17/17 02:14 Acetaminophen/ Hydrocodone Bitart ([place] 5/325) 1 tab Q6H PRN ORAL Severe Pain (Pain Scale 4-10) 09/23/17 14:15 09/30/17 14:14 Albuterol/ Ipratropium (Albuterol/ Ipratropium) 3 ml Q4H PRN HHN Shortness of Breath 09/23/17 13:30 09/28/17 13:29 Albuterol/ Ipratropium (Albuterol/ Ipratropium) 3 ml TIDRT HHN 09/22/17 19:00 09/27/17 18:59 09/24/17 07:43 Artificial Tears (Akwa-Tears) 2 drop Q2H PRN BOTH EYES Dry Eyes 09/18/17 12:15 10/18/17 12:14 09/20/17 08:47 Aspirin (ASA) 81 mg DAILY ORAL 09/17/17 09:00 10/17/17 08:59 09/24/17 08:27 Benzonatate (Tessalon Perles) 100 mg THREE TIMES A DAY PRN ORAL For Cough 09/18/17 06:45 10/18/17 06:44 Bupropion HCl (Wellbutrin XL) 150 mg DAILY ORAL 09/17/17 18:00 10/17/17 17:59 09/24/17 08:28 Docusate Sodium (Colace) 100 mg THREE TIMES A DAY ORAL 09/18/17 18:00 10/18/17 17:59 09/24/17 08:27 Dorzolamide/ Timolol (Cosopt) 1 drop BID BOTH EYES 09/18/17 09:00 10/18/17 08:59 09/24/17 08:37 Epoetin Jerod (Procrit (for ESRD on dialysis)) 10,000 units MON-WED-MON SUBQ 09/18/17 21:00 10/18/17 20:59 09/22/17 21:51 Famotidine (Pepcid) 20 mg DAILY ORAL 09/18/17 09:00 10/18/17 08:59 09/24/17 08:28 Heparin Sodium (Porcine) (Heparin 5000 units/ml) 5,000 units EVERY 8 HOURS SUBQ 09/17/17 14:00 10/17/17 13:59 09/23/17 21:08 Methylprednisolone Sodium Succinate (Solu-MEDROL) 20 mg Q12H IVP 09/23/17 15:00 10/23/17 14:59 09/24/17 03:01 Mirtazapine (Remeron) 15 mg BEDTIME ORAL 09/17/17 21:00 10/17/17 20:59 09/23/17 21:06 Ondansetron HCl (Zofran) 4 mg Q4H PRN IVP Nausea & Vomiting 09/17/17 02:15 10/17/17 02:14 Sevelamer Carbonate (Renvela) 800 mg THREE TIMES A DAY ORAL 09/18/17 18:00 10/18/17 17:59 09/24/17 12:01 Tamsulosin HCl (Flomax) 0.4 mg BID ORAL 09/18/17 09:00 10/18/17 08:59 09/24/17 08:28 Allergies: Coded Allergies: CIPROFLOXACIN (Verified Allergy, Unknown, 09/17/17) PENICILLINS (Verified Allergy, Unknown, 09/20/17) tolareted Cefepime Sep 2017 ROS Limited/Unobtainable: No Constitutional: Reports: no symptoms HEENT: Reports: no symptoms Cardiovascular: Reports: no symptoms Respiratory: Reports: no symptoms Gastrointestinal/Abdominal: Reports: no symptoms Genitourinary: Reports: no symptoms Neurologic/Psychiatric: Reports: no symptoms Subjective 81 YO M with shortness of breath. Now pneumonia. Cover for Int [facility]-Dr Mustafa. Objective Last Vital Signs Date Time Temp Pulse Resp B/P (MAP) Pulse Ox O2 Delivery O2 Flow Rate FiO2 09/24/17 13:00 Room Air 09/24/17 12:00 98.0 70 18 126/73 96 09/24/17 09:25 21 09/23/17 19:28 2.0 Laboratory Tests Test 09/24/17 06:45 White Blood Count 23.7 K/UL (4.8-10.8) *H Red Blood Count 2.92 M/UL (4.70-6.10) L Hemoglobin 9.1 G/DL (14.2-18.0) L Hematocrit 27.9 % (42.0-52.0) L Mean Corpuscular Volume 96 FL (80-99) Mean Corpuscular Hemoglobin 31.3 PG (27.0-31.0) H Mean Corpuscular Hemoglobin Concent 32.7 G/DL (32.0-36.0) Red Cell Distribution Width 14.6 % (11.6-14.8) Platelet Count 276 K/UL (150-450) Mean Platelet Volume 7.6 FL (6.5-10.1) Neutrophils (%) (Auto) % (45.0-75.0) Lymphocytes (%) (Auto) % (20.0-45.0) Monocytes (%) (Auto) % (1.0-10.0) Eosinophils (%) (Auto) % (0.0-3.0) Basophils (%) (Auto) % (0.0-2.0) Differential Total Cells Counted 100 Neutrophils % (Manual) 88 % (45-75) H Lymphocytes % (Manual) 7 % (20-45) L Monocytes % (Manual) 5 % (1-10) Eosinophils % (Manual) 0 % (0-3) Basophils % (Manual) 0 % (0-2) Band Neutrophils 0 % (0-8) Platelet Estimate Adequate Platelet Morphology Normal Hypochromasia 1+ Anisocytosis 1+ Sodium Level 137 MMOL/L (136-145) Potassium Level 4.0 MMOL/L (3.5-5.1) Chloride Level 101 MMOL/L (98-107) Carbon Dioxide Level 27 MMOL/L (21-32) Anion Gap 9 mmol/L (5-15) Blood Urea Nitrogen 48 mg/dL (7-18) H Creatinine 4.4 MG/DL (0.55-1.30) H Estimat Glomerular Filtration Rate mL/min (>60) Glucose Level 194 MG/DL (74-106) H Calcium Level 7.7 MG/DL (8.5-10.1) L Microbiology Date/Time Source Procedure Growth Status 09/21/17 15:30 Indwelling Cath Urine Culture - Final NO GROWTH AFTER 48 HOURS Complete Intake and Output 09/23/17 09/24/17 19:00 07:00 Intake Total 840 ml 240 ml Output Total 800 ml 1800 ml Balance 40 ml -1560 ml Intake Oral 840 ml 240 ml Output Urine Total 800 ml 800 ml Hemodialysis UF 1000 ml # Bowel Movements 1 Objective General Appearance: WD/WN, no apparent distress, alert, mild distress EENT: PERRL/EOMI, normal ENT inspection, TMs normal Neck: non-tender, normal alignment, supple, normal inspection Cardiovascular: normal peripheral pulses, normal rate, regular rhythm, no gallop/murmur, no JVD Respiratory/Chest: chest wall non-tender, no respiratory distress, no accessory muscle use, crackles/rales, rhonchi - bilaterally, expiratory wheezing Abdomen: normal bowel sounds, non tender, soft, no organomegaly, no mass Extremities: normal range of motion 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 Continue albuterol nebs and IV solumedrol (2) ESRD (end stage renal disease) on dialysis (3) Leukocytosis Assessment & Plan: Worsening on steroids cont abx per ID (4) HTN (hypertension) (5) Depression Assessment & Plan: Continue mirtazipime (6) Pneumonia Assessment & Plan: Continue cefepime-see ID note. Status: progressing Assessment/Plan D/C to [facility] in am 09/25/17 KARMA GUILLEN Sep 24, 2017 14:24
[2017-09-24 15:48] VITALS: BP 139/94
--- NOTE | 2017-09-24 16:27 | Pulmonology Progress Note ---
Assessment/Plan Assessment/Plan ASSESSMENT LLL PNA acute bronchospasm ESRD on HD HTN depression anemia of chronic kidney disease PLAN OF CARE MS floor O2 HHN ATC and prn dc IV steroids , abx ID follows bl cx P, UA negative aspiration precautions ST eval nephro follows HD as per nephro, monitor renal, lytes, replace as needed BP management, currently normotensive monitor HH, transfuse prn, on EPO anemia w/up noted DVT GI prophylaxis continue Wellbutrin, Remeron case discussed and evaluated by supervising physician Subjective Allergies: Coded Allergies: CIPROFLOXACIN (Verified Allergy, Unknown, 09/17/17) PENICILLINS (Verified Allergy, Unknown, 09/20/17) tolareted Cefepime Sep 2017 Subjective leukocytosis trending up, afebrile pulse ox stable on RA, no cough wheezing stopped, and respiratory symptoms improved Objective Last 24 Hour Vital Signs Date Time Temp Pulse Resp B/P (MAP) Pulse Ox O2 Delivery O2 Flow Rate FiO2 09/24/17 15:48 97.9 73 22 139/94 99 09/24/17 13:00 Room Air 09/24/17 13:00 Room Air 09/24/17 12:00 98.0 70 18 126/73 96 09/24/17 09:25 69 18 98 Room Air 21 09/24/17 09:15 70 18 98 Room Air 21 09/24/17 08:00 98.1 73 20 121/70 97 09/24/17 07:43 Room Air 09/24/17 07:43 97 Room Air 21 09/24/17 04:00 98.0 69 21 119/72 96 09/24/17 00:00 97.7 69 21 122/68 95 09/23/17 20:00 98.1 72 21 124/61 95 09/23/17 19:34 69 18 97 Room Air 21 09/23/17 19:28 96 Room Air 21 09/23/17 19:28 65 18 Nasal Cannula 2.0 28 09/23/17 19:27 Room Air 09/23/17 19:26 65 20 97 Room Air 21 09/23/17 19:10 Room Air 2.0 21 Intake and Output 09/23/17 09/24/17 19:00 07:00 Intake Total 840 ml 240 ml Output Total 800 ml 1800 ml Balance 40 ml -1560 ml Intake Oral 840 ml 240 ml Output Urine Total 800 ml 800 ml Hemodialysis UF 1000 ml # Bowel Movements 1 Objective General Appearance: no acute distress HEENT: normocephalic, atraumatic, anicteric, mucous membranes moist, PERRL Respiratory/Chest: CTAB - Cardiovascular: normal peripheral pulses, normal rate, no JVD Abdomen: normal bowel sounds, soft, non tender Genitourinary: other - Bet[place]ur Neurologic/Psychiatric: alert, responsive Musculoskeletal: atrophy - BLE Laboratory Tests 09/24/17 06:45: White Blood Count 23.7*H, Red Blood Count 2.92L, Hemoglobin 9.1L, Hematocrit 27.9L, Mean Corpuscular Volume 96, Mean Corpuscular Hemoglobin 31.3H, Mean Corpuscular Hemoglobin Concent 32.7, Red Cell Distribution Width 14.6, Platelet Count 276, Mean Platelet Volume 7.6, Neutrophils (%) (Auto) , Lymphocytes (%) ( Auto) , Monocytes (%) (Auto) , Eosinophils (%) (Auto) , Basophils (%) (Auto) , Differential Total Cells Counted 100, Neutrophils % (Manual) 88H, Lymphocytes % (Manual) 7L, Monocytes % (Manual) 5, Eosinophils % (Manual) 0, Basophils % ( Manual) 0, Band Neutrophils 0, Platelet Estimate Adequate, Platelet Morphology Normal, Hypochromasia 1+, Anisocytosis 1+, Sodium Level 137, Potassium Level 4.0 , Chloride Level 101, Carbon Dioxide Level 27, Anion Gap 9, Blood Urea Nitrogen 48H, Creatinine 4.4H, Estimat Glomerular Filtration Rate , Glucose Level 194H, Calcium Level 7.7L Current Medications Medications (Trade) Dose Ordered Sig/Jessica Route PRN Reason Start Time Stop Time Status Last Admin Dose Admin Acetaminophen (Tylenol) 650 mg Q6H PRN ORAL Mild Pain/Temp > 100.5 09/17/17 02:15 10/17/17 02:14 Acetaminophen/ Hydrocodone Bitart ([place] 5/325) 1 tab Q6H PRN ORAL Severe Pain (Pain Scale 4-10) 09/23/17 14:15 09/30/17 14:14 Albuterol/ Ipratropium (Albuterol/ Ipratropium) 3 ml Q4H PRN HHN Shortness of Breath 09/23/17 13:30 09/28/17 13:29 Albuterol/ Ipratropium (Albuterol/ Ipratropium) 3 ml TIDRT HHN 09/22/17 19:00 09/27/17 18:59 09/24/17 07:43 Artificial Tears (Akwa-Tears) 2 drop Q2H PRN BOTH EYES Dry Eyes 09/18/17 12:15 10/18/17 12:14 09/20/17 08:47 Aspirin (ASA) 81 mg DAILY ORAL 09/17/17 09:00 10/17/17 08:59 09/24/17 08:27 Benzonatate (Tessalon Perles) 100 mg THREE TIMES A DAY PRN ORAL For Cough 09/18/17 06:45 10/18/17 06:44 Bupropion HCl (Wellbutrin XL) 150 mg DAILY ORAL 09/17/17 18:00 10/17/17 17:59 09/24/17 08:28 Docusate Sodium (Colace) 100 mg THREE TIMES A DAY ORAL 09/18/17 18:00 10/18/17 17:59 09/24/17 08:27 Dorzolamide/ Timolol (Cosopt) 1 drop BID BOTH EYES 09/18/17 09:00 10/18/17 08:59 09/24/17 08:37 Epoetin Jerod (Procrit (for ESRD on dialysis)) 10,000 units MON-MON-MON SUBQ 09/18/17 21:00 10/18/17 20:59 09/22/17 21:51 Famotidine (Pepcid) 20 mg DAILY ORAL 09/18/17 09:00 10/18/17 08:59 09/24/17 08:28 Heparin Sodium (Porcine) (Heparin 5000 units/ml) 5,000 units EVERY 8 HOURS SUBQ 09/17/17 14:00 10/17/17 13:59 09/23/17 21:08 Methylprednisolone Sodium Succinate (Solu-MEDROL) 20 mg Q12H IVP 09/23/17 15:00 10/23/17 14:59 09/24/17 14:42 Mirtazapine (Remeron) 15 mg BEDTIME ORAL 09/17/17 21:00 10/17/17 20:59 09/23/17 21:06 Ondansetron HCl (Zofran) 4 mg Q4H PRN IVP Nausea & Vomiting 09/17/17 02:15 10/17/17 02:14 Sevelamer Carbonate (Renvela) 800 mg THREE TIMES A DAY ORAL 09/18/17 18:00 10/18/17 17:59 09/24/17 12:01 Tamsulosin HCl (Flomax) 0.4 mg BID ORAL 09/18/17 09:00 10/18/17 08:59 09/24/17 08:28 Azar ([facility])Suzy NP Sep 24, 2017 16:27
[2017-09-24 20:00] VITALS: BP 116/70
[2017-09-25] VITALS (7 sets, daily range): BP systolic 122–164; BP diastolic 67–84
[2017-09-25 07:56] LABS: HEMATOCRIT 29.4 % (42.0-52.0); HEMOGLOBIN 9.6 G/DL (14.2-18.0); MEAN CORPUSCULAR VOLUME 99 FL (80-99); PLATELET COUNT 279 K/UL (150-450); RED BLOOD COUNT 2.99 M/UL (4.70-6.10); RED CELL DISTRIBUTION WIDTH 15.5 % (11.6-14.8)
[2017-09-25 08:01] LABS: WHITE BLOOD COUNT 26.1 K/UL (4.8-10.8)
[2017-09-25 08:06] LABS: ALANINE AMINOTRANSFERASE 32 U/L (12-78); ALBUMIN 2.7 G/DL (3.4-5.0); ALBUMIN/GLOBULIN RATIO 0.6 (1.0-2.7); ALKALINE PHOSPHATASE 139 U/L (46-116); ANION GAP 11 mmol/L (5-15); ASPARTATE AMINO TRANSFERASE 15 U/L (15-37); BILIRUBIN,TOTAL 0.4 MG/DL (0.2-1.0); BLOOD UREA NITROGEN 68 mg/dL (7-18); CALCIUM 7.8 MG/DL (8.5-10.1); CARBON DIOXIDE 26 MMOL/L (21-32); CHLORIDE 103 MMOL/L (98-107); CREATININE 5.5 MG/DL (0.55-1.30); PHOSPHORUS 3.8 MG/DL (2.5-4.9); POTASSIUM 4.1 MMOL/L (3.5-5.1); SODIUM 139 MMOL/L (136-145)
[2017-09-25] MEDS: Aspirin Baby 81mg ORAL SCH (08:10)
[2017-09-25] MEDS: Cosopt Opth Soln 10 mL Btl BOTH EYES SCH ×2 (08:10→18:32)
[2017-09-25] MEDS: Tamsulosin 0.4mg cap ORAL SCH ×2 (08:10→18:32)
[2017-09-25] MEDS: BuPROPion XL 150mg tab ORAL SCH (08:11)
[2017-09-25] MEDS: Docusate 100mg cap ORAL SCH ×3 (08:12→18:00)
[2017-09-25] MEDS: Albuterol/Ipratropium 3ml neb HHN SCH ×3 (08:15→20:56)
--- NOTE | 2017-09-25 11:32 | Infectious Diseases Prog Note ---
Assessment/Plan Assessment/Plan LLL Pna (seen in OSH CXR), however CXR here neg -CXR 09/22 No acute process -CXR: No radiographic evidence of acute cardiopulmonary disease. -influenza neg -sp cx normal ian Leukocytosis, worsening after steroids but was still elevated prior to initiation of steroids -afebrile -u/a neg; Ucx NTD -Bcx NTD Constipation -KUB: Mild amount of retained feces in the ascending and transverse colon, nonspecific. HTN MDD recent ESRD started on HD on Mid Aug 2017 (at [facility]) s/p perma cath R upper chest Plan: -Continue to monitor off abx unless febrile, HD stable or obvious infectious source on CT -09/23 SP Cefepime #7 -09/21 SP Azithromycin #5 -Leukocytosis worst (partly by steroids but was still worsening prior to initiation of steroids)- for such will obtain CT chest/abd/p w/ today prior to HD to evaluate for source of infection -f/u cx -Monitor CBC/BMP, temperatures; Trend WBC -aspiration precautions -f/u abd us Discussed with RN Subjective Allergies: Coded Allergies: CIPROFLOXACIN (Verified Allergy, Unknown, 09/17/17) PENICILLINS (Verified Allergy, Unknown, 09/20/17) tolareted Cefepime Sep 2017 Subjective afebrile worsening steroids ( s/p high dose steroids 09/22-) all cx NTD Objective Vital Signs Last 24 Hour Vital Signs Date Time Temp Pulse Resp B/P (MAP) Pulse Ox O2 Delivery O2 Flow Rate FiO2 09/25/17 08:24 68 20 99 Room Air 21 09/25/17 08:21 65 18 98 Room Air 21 09/25/17 08:18 65 18 Room Air 21 09/25/17 08:00 96.8 68 20 152/84 98 09/25/17 04:00 97.0 63 20 164/83 96 09/25/17 00:00 97.2 65 18 122/67 95 09/24/17 20:29 Room Air 21 09/24/17 20:29 93 Room Air 21 09/24/17 20:00 97.5 61 20 116/70 93 09/24/17 18:11 71 20 99 Room Air 21 09/24/17 18:05 76 20 94 Room Air 09/24/17 15:48 97.9 73 22 139/94 99 09/24/17 13:00 Room Air 09/24/17 13:00 Room Air 09/24/17 12:00 98.0 70 18 126/73 96 Height (Feet): 5 Height (Inches): 11.00 Weight (Pounds): 201 Objective GENERAL: The patient is a well-developed, well-nourished, white male, in no apparent distress. HEENT: Eyes, pupils are equal and responsive to light and accommodation. Extraocular movements are intact. NECK: Supple without lymphadenopathy. CHEST: CTA x2 CARDIOVASCULAR: Regular rhythm and rate. S1 and S2 are normal without murmurs, rubs, or gallops. ABDOMEN: Soft, nontender, and nondistended. Positive bowel sounds. No evidence of hepatosplenomegaly. Currently, no rebound or guarding noted. EXTREMITIES: Negative for clubbing, cyanosis, or edema. R chest ruslan cath ihn place , no signs of infection NEUROLOGIC: Cranial nerves II through XII are grossly intact without focal deficits. Motor strength is 5/5 bilaterally. Deep tendon reflexes are 2+ plantar. Laboratory Tests Test 09/25/17 06:40 White Blood Count 26.1 K/UL (4.8-10.8) *H Red Blood Count 2.99 M/UL (4.70-6.10) L Hemoglobin 9.6 G/DL (14.2-18.0) L Hematocrit 29.4 % (42.0-52.0) L Mean Corpuscular Volume 99 FL (80-99) Mean Corpuscular Hemoglobin 32.0 PG (27.0-31.0) H Mean Corpuscular Hemoglobin Concent 32.5 G/DL (32.0-36.0) Red Cell Distribution Width 15.5 % (11.6-14.8) H Platelet Count 279 K/UL (150-450) Mean Platelet Volume 7.5 FL (6.5-10.1) Neutrophils (%) (Auto) % (45.0-75.0) Lymphocytes (%) (Auto) % (20.0-45.0) Monocytes (%) (Auto) % (1.0-10.0) Eosinophils (%) (Auto) % (0.0-3.0) Basophils (%) (Auto) % (0.0-2.0) Differential Total Cells Counted 100 Neutrophils % (Manual) 79 % (45-75) H Lymphocytes % (Manual) 8 % (20-45) L Monocytes % (Manual) 13 % (1-10) H Eosinophils % (Manual) 0 % (0-3) Basophils % (Manual) 0 % (0-2) Band Neutrophils 0 % (0-8) Platelet Estimate Adequate Platelet Morphology Normal Hypochromasia 2+ Anisocytosis 1+ Sodium Level 139 MMOL/L (136-145) Potassium Level 4.1 MMOL/L (3.5-5.1) Chloride Level 103 MMOL/L (98-107) Carbon Dioxide Level 26 MMOL/L (21-32) Anion Gap 11 mmol/L (5-15) Blood Urea Nitrogen 68 mg/dL (7-18) H Creatinine 5.5 MG/DL (0.55-1.30) H Estimat Glomerular Filtration Rate mL/min (>60) Glucose Level 132 MG/DL (74-106) H Uric Acid 6.9 MG/DL (2.6-7.2) Calcium Level 7.8 MG/DL (8.5-10.1) L Phosphorus Level 3.8 MG/DL (2.5-4.9) Magnesium Level 2.3 MG/DL (1.8-2.4) Total Bilirubin 0.4 MG/DL (0.2-1.0) Aspartate Amino Transf (AST/SGOT) 15 U/L (15-37) Alanine Aminotransferase (ALT/SGPT) 32 U/L (12-78) Alkaline Phosphatase 139 U/L (46-116) H C-Reactive Protein, Quantitative 1.4 mg/dL (0.00-0.90) H Total Protein 7.1 G/DL (6.4-8.2) Albumin 2.7 G/DL (3.4-5.0) L Globulin 4.4 g/dL Albumin/Globulin Ratio 0.6 (1.0-2.7) L Current Medications Medications (Trade) Dose Ordered Sig/Jessica Route PRN Reason Start Time Stop Time Status Last Admin Dose Admin Acetaminophen (Tylenol) 650 mg Q6H PRN ORAL Mild Pain/Temp > 100.5 09/17/17 02:15 10/17/17 02:14 Acetaminophen/ Hydrocodone Bitart ([place] 5/325) 1 tab Q6H PRN ORAL Severe Pain (Pain Scale 4-10) 09/23/17 14:15 09/30/17 14:14 Albuterol/ Ipratropium (Albuterol/ Ipratropium) 3 ml Q4H PRN HHN Shortness of Breath 09/23/17 13:30 09/28/17 13:29 Albuterol/ Ipratropium (Albuterol/ Ipratropium) 3 ml TIDRT HHN 09/22/17 19:00 09/27/17 18:59 09/25/17 08:15 Artificial Tears (Akwa-Tears) 2 drop Q2H PRN BOTH EYES Dry Eyes 09/18/17 12:15 10/18/17 12:14 09/20/17 08:47 Aspirin (ASA) 81 mg DAILY ORAL 09/17/17 09:00 10/17/17 08:59 09/25/17 08:10 Benzonatate (Tessalon Perles) 100 mg THREE TIMES A DAY PRN ORAL For Cough 09/18/17 06:45 10/18/17 06:44 Bupropion HCl (Wellbutrin XL) 150 mg DAILY ORAL 09/17/17 18:00 10/17/17 17:59 09/25/17 08:11 Docusate Sodium (Colace) 100 mg THREE TIMES A DAY ORAL 09/18/17 18:00 10/18/17 17:59 09/25/17 08:12 Dorzolamide/ Timolol (Cosopt) 1 drop BID BOTH EYES 09/18/17 09:00 10/18/17 08:59 09/25/17 08:10 Epoetin Jerod (Procrit (for ESRD on dialysis)) 10,000 units MON-MON-MON SUBQ 09/18/17 21:00 10/18/17 20:59 09/22/17 21:51 Famotidine (Pepcid) 20 mg DAILY ORAL 09/18/17 09:00 10/18/17 08:59 09/25/17 08:11 Heparin Sodium (Porcine) (Heparin 5000 units/ml) 5,000 units EVERY 8 HOURS SUBQ 09/17/17 14:00 10/17/17 13:59 09/23/17 21:08 Mirtazapine (Remeron) 15 mg BEDTIME ORAL 09/17/17 21:00 10/17/17 20:59 09/24/17 21:11 Ondansetron HCl (Zofran) 4 mg Q4H PRN IVP Nausea & Vomiting 09/17/17 02:15 10/17/17 02:14 Sevelamer Carbonate (Renvela) 800 mg THREE TIMES A DAY ORAL 09/18/17 18:00 10/18/17 17:59 09/25/17 08:11 Tamsulosin HCl (Flomax) 0.4 mg BID ORAL 09/18/17 09:00 10/18/17 08:59 09/25/17 08:10 Griselda Mazariegos M.D. Sep 25, 2017 11:32
--- NOTE | 2017-09-25 11:35 | Nephrology Progress Note ---
Assessment/Plan Problem List: (1) ESRD (end stage renal disease) on dialysis (2) HTN (hypertension) (3) Pneumonia (4) Depression Assessment status: - End-stage renal disease, on hemodialysis. - Left lower lobe pneumonia. - Leukocytosis. - Hypertension. - Depression. Plan Plan; HD 09/25 Adjust BP meds continue per consultants taper steroids as possible FU with CS MDs Subjective ROS Limited/Unobtainable: No Constitutional: Reports: malaise Objective Objective Last 24 Hour Vital Signs Date Time Temp Pulse Resp B/P (MAP) Pulse Ox O2 Delivery O2 Flow Rate FiO2 09/25/17 08:24 68 20 99 Room Air 21 09/25/17 08:21 65 18 98 Room Air 21 09/25/17 08:18 65 18 Room Air 09/25/17 08:00 96.8 68 20 152/84 98 09/25/17 04:00 97.0 63 20 164/83 96 09/25/17 00:00 97.2 65 18 122/67 95 09/24/17 20:29 Room Air 21 09/24/17 20:29 93 Room Air 21 09/24/17 20:00 97.5 61 20 116/70 93 09/24/17 18:11 71 20 99 Room Air 21 09/24/17 18:05 76 20 94 Room Air 09/24/17 15:48 97.9 73 22 139/94 99 09/24/17 13:00 Room Air 09/24/17 13:00 Room Air 09/24/17 12:00 98.0 70 18 126/73 96 Intake and Output 09/24/17 09/25/17 19:00 07:00 Intake Total 480 ml 240 ml Output Total 900 ml 350 ml Balance -420 ml -110 ml Intake Oral 480 ml 240 ml Output Urine Total 900 ml 350 ml # Voids 1 3 Laboratory Tests 09/25/17 06:40: White Blood Count 26.1*H, Red Blood Count 2.99L, Hemoglobin 9.6L, Hematocrit 29.4L, Mean Corpuscular Volume 99, Mean Corpuscular Hemoglobin 32.0H, Mean Corpuscular Hemoglobin Concent 32.5, Red Cell Distribution Width 15.5H, Platelet Count 279, Mean Platelet Volume 7.5, Neutrophils (%) (Auto) , Lymphocytes (%) (Auto) , Monocytes (%) (Auto) , Eosinophils (%) (Auto) , Basophils (%) (Auto) , Differential Total Cells Counted 100, Neutrophils % ( Manual) 79H, Lymphocytes % (Manual) 8L, Monocytes % (Manual) 13H, Eosinophils % (Manual) 0, Basophils % (Manual) 0, Band Neutrophils 0, Platelet Estimate Adequate, Platelet Morphology Normal, Hypochromasia 2+, Anisocytosis 1+, Sodium Level 139, Potassium Level 4.1, Chloride Level 103, Carbon Dioxide Level 26, Anion Gap 11, Blood Urea Nitrogen 68H, Creatinine 5.5H, Estimat Glomerular Filtration Rate , Glucose Level 132H, Uric Acid 6.9, Calcium Level 7.8L, Phosphorus Level 3.8, Magnesium Level 2.3, Total Bilirubin 0.4, Aspartate Amino Transf (AST/SGOT) 15, Alanine Aminotransferase (ALT/SGPT) 32, Alkaline Phosphatase 139H, C-Reactive Protein, Quantitative 1.4H, Total Protein 7.1, Albumin 2.7L, Globulin 4.4, Albumin/Globulin Ratio 0.6L Height (Feet): 5 Height (Inches): 11.00 Weight (Pounds): 201 General Appearance: no apparent distress Objective no change ROMEL RAJAN Sep 25, 2017 11:34
[2017-09-25] MEDS: Heparin 5000 units/ml inj SUBQ SCH ×2 (14:00→20:35)
[2017-09-25] MEDS: Epogen (for ESRD on dialysis) SUBQ SCH (20:33)
--- NOTE | 2017-09-25 21:47 | Diagnostic Imaging Report ---
Indication:Abdominal pain Technique: Grayscale and duplex Doppler imaging of the abdomen performed. Comparison: None Findings: Kidneys are echogenic with multiple cysts. There is no hydronephrosis demonstrated. There is no ascites. Findings consistent with chronic renal disease. The IVC is unremarkable. The bladder is unremarkable. There is focal dilatation of the mid abdominal aorta measuring about 3 cm consistent with a fusiform aneurysm. Follow-up evaluation recommended with CTA. Gallbladder and liver appear unremarkable. Spleen is normal size. No ascites appreciated. Pancreas is grossly unremarkable as seen. Gallbladder is unremarkable. No biliary ductal dilatation identified. Main portal vein is patent by Doppler. IMPRESSION: Chronic renal disease/insufficiency with multiple cysts. Suspicion of a mid abdominal fusiform aneurysm measuring about 3 cm. Follow-up evaluation with CTA suggested.
--- NOTE | 2017-09-25 21:48 | Diagnostic Imaging Report ---
Indication: Chest and abdominal pain Technique: Continuous helical transaxial imaging of the chest, abdomen and pelvis was obtained from the lung bases to the pubic symphysis during intravenous contrast administration. Multiple phases of enhancement obtained. Coronal 2-D reformats were also obtained. Study obtained in a Siemens sensation [address] Automatic Exposure Control was utilized. Total Dose length Product (DLP): 1665.[address] Dose Index Volume (CTDIvol): 15.98,16.03 mGy Comparison: None Findings: CT CHEST: Small hiatal hernia is present. The lungs are clear. No adenopathy or abnormal fluid collections are demonstrated within the chest. There is a right jugular catheter which appears to be in good position. CT abdomen and pelvis: There are multiple bilateral renal cysts. There is no hydronephrosis. The liver, spleen, pancreas, gallbladder appear unremarkable. The lower abdominal aorta is dilated measuring 3.9 cm. Associated mural thrombus and calcification noted. Findings consistent with a fusiform aneurysm. Fusiform dilatation of the left common iliac artery also demonstrated measuring 3.2 cm. Associated dissection noted. 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 Diverticulosis of the colon noted. No definite diverticulitis appreciated. No evidence of bowel obstruction, free fluid or free air. The appendix appears normal. Surgical clips noted in the area of the prostate gland. There is narrowing of intervertebral discs and accompanying endplate osteophyte formation. Hypertrophied facet joints also demonstrated.. IMPRESSION: No acute findings appreciated within the chest abdomen or pelvis. No source of the infection identified. 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 Diverticulosis of the colon. No definite evidence of diverticulitis. Spondylosis Multiple bilateral renal cysts. Small hiatal hernia. Evidence of previous prostate surgery The CT scanner at [facility] is accredited by the [employer] and the scans are performed using dose optimization techniques as appropriate to a performed exam including Automatic Exposure control.
--- NOTE | 2017-09-25 23:06 | Pulmonology Progress Note ---
Assessment/Plan Problems: (1) Pneumonia (2) ESRD (end stage renal disease) on dialysis (3) HTN (hypertension) (4) Depression (5) Prostate cancer Assessment/Plan improving check cultures HD by nephrology monitor BP dvt prophylaxis. all notes rev iewed Subjective ROS Limited/Unobtainable: No Constitutional: Reports: no symptoms HEENT: Repors: no symptoms Respiratory: Reports: no symptoms Allergies: Coded Allergies: CIPROFLOXACIN (Verified Allergy, Unknown, 09/17/17) PENICILLINS (Verified Allergy, Unknown, 09/20/17) tolareted Cefepime Sep 2017 Objective Last 24 Hour Vital Signs Date Time Temp Pulse Resp B/P (MAP) Pulse Ox O2 Delivery O2 Flow Rate FiO2 09/25/17 21:00 97.0 67 28 143/82 Room Air 09/25/17 20:00 98.0 66 18 143/ 95 Room Air 09/25/17 19:29 61 28 99 Room Air 21 09/25/17 19:24 67 18 96 Room Air 21 09/25/17 19:00 68 20 Room Air 21 09/25/17 16:27 97.5 69 19 146/76 97 09/25/17 13:29 65 20 99 Room Air 21 09/25/17 13:20 63 20 98 Room Air 21 09/25/17 12:00 96.8 69 20 146/82 97 09/25/17 08:24 68 20 99 Room Air 21 09/25/17 08:21 65 18 98 Room Air 21 09/25/17 08:18 65 18 Room Air 21 09/25/17 08:00 96.8 68 20 152/84 98 09/25/17 04:00 97.0 63 20 164/83 96 09/25/17 00:00 97.2 65 18 122/67 95 Intake and Output 09/24/17 09/25/17 19:00 07:00 Intake Total 480 ml 240 ml Output Total 900 ml 350 ml Balance -420 ml -110 ml Intake Oral 480 ml 240 ml Output Urine Total 900 ml 350 ml # Voids 1 3 Objective General Appearance: no acute distress HEENT: normocephalic, atraumatic Respiratory/Chest: lungs clear, no respiratory distress, no accessory muscle use Cardiovascular: normal rate, no JVD, CL-femoral intact Abdomen: normal bowel sounds, soft, non tender Extremities: no edema Neurologic/Psychiatric: alert, responsive Musculoskeletal: normal muscle bulk Laboratory Tests 09/25/17 06:40: White Blood Count 26.1*H, Red Blood Count 2.99L, Hemoglobin 9.6L, Hematocrit 29.4L, Mean Corpuscular Volume 99, Mean Corpuscular Hemoglobin 32.0H, Mean Corpuscular Hemoglobin Concent 32.5, Red Cell Distribution Width 15.5H, Platelet Count 279, Mean Platelet Volume 7.5, Neutrophils (%) (Auto) , Lymphocytes (%) (Auto) , Monocytes (%) (Auto) , Eosinophils (%) (Auto) , Basophils (%) (Auto) , Differential Total Cells Counted 100, Neutrophils % ( Manual) 79H, Lymphocytes % (Manual) 8L, Monocytes % (Manual) 13H, Eosinophils % (Manual) 0, Basophils % (Manual) 0, Band Neutrophils 0, Platelet Estimate Adequate, Platelet Morphology Normal, Hypochromasia 2+, Anisocytosis 1+, Sodium Level 139, Potassium Level 4.1, Chloride Level 103, Carbon Dioxide Level 26, Anion Gap 11, Blood Urea Nitrogen 68H, Creatinine 5.5H, Estimat Glomerular Filtration Rate , Glucose Level 132H, Uric Acid 6.9, Calcium Level 7.8L, Phosphorus Level 3.8, Magnesium Level 2.3, Total Bilirubin 0.4, Aspartate Amino Transf (AST/SGOT) 15, Alanine Aminotransferase (ALT/SGPT) 32, Alkaline Phosphatase 139H, C-Reactive Protein, Quantitative 1.4H, Total Protein 7.1, Albumin 2.7L, Globulin 4.4, Albumin/Globulin Ratio 0.6L Current Medications Medications (Trade) Dose Ordered Sig/Jessica Route PRN Reason Start Time Stop Time Status Last Admin Dose Admin Acetaminophen (Tylenol) 650 mg Q6H PRN ORAL Mild Pain/Temp > 100.5 09/17/17 02:15 10/17/17 02:14 Acetaminophen/ Hydrocodone Bitart ([place] 5/325) 1 tab Q6H PRN ORAL Severe Pain (Pain Scale 4-10) 09/23/17 14:15 09/30/17 14:14 Albuterol/ Ipratropium (Albuterol/ Ipratropium) 3 ml Q4H PRN HHN Shortness of Breath 09/23/17 13:30 09/28/17 13:29 Albuterol/ Ipratropium (Albuterol/ Ipratropium) 3 ml TIDRT HHN 09/22/17 19:00 09/27/17 18:59 09/25/17 20:56 Artificial Tears (Akwa-Tears) 2 drop Q2H PRN BOTH EYES Dry Eyes 09/18/17 12:15 10/18/17 12:14 09/20/17 08:47 Aspirin (ASA) 81 mg DAILY ORAL 09/17/17 09:00 10/17/17 08:59 09/25/17 08:10 Benzonatate (Tessalon Perles) 100 mg THREE TIMES A DAY PRN ORAL For Cough 09/18/17 06:45 10/18/17 06:44 Bupropion HCl (Wellbutrin XL) 150 mg DAILY ORAL 09/17/17 18:00 10/17/17 17:59 09/25/17 08:11 Docusate Sodium (Colace) 100 mg THREE TIMES A DAY ORAL 09/18/17 18:00 10/18/17 17:59 09/25/17 08:12 Dorzolamide/ Timolol (Cosopt) 1 drop BID BOTH EYES 09/18/17 09:00 10/18/17 08:59 09/25/17 18:32 Epoetin Jerod (Procrit (for ESRD on dialysis)) 10,000 units MON-MON-MON SUBQ 09/18/17 21:00 10/18/17 20:59 09/25/17 20:33 Famotidine (Pepcid) 20 mg DAILY ORAL 09/18/17 09:00 10/18/17 08:59 09/25/17 08:11 Heparin Sodium (Porcine) (Heparin 5000 units/ml) 5,000 units EVERY 8 HOURS SUBQ 09/17/17 14:00 10/17/17 13:59 09/25/17 20:35 Mirtazapine (Remeron) 15 mg BEDTIME ORAL 09/17/17 21:00 10/17/17 20:59 09/25/17 20:33 Ondansetron HCl (Zofran) 4 mg Q4H PRN IVP Nausea & Vomiting 09/17/17 02:15 10/17/17 02:14 Sevelamer Carbonate (Renvela) 800 mg THREE TIMES A DAY ORAL 09/18/17 18:00 10/18/17 17:59 09/25/17 18:32 Tamsulosin HCl (Flomax) 0.4 mg BID ORAL 09/18/17 09:00 10/18/17 08:59 09/25/17 18:32 PENNIE CHAMBERLAIN Sep 25, 2017 23:06
[2017-09-26] VITALS (7 sets, daily range): BP systolic 119–151; BP diastolic 64–93
[2017-09-26] MEDS: Heparin 5000 units/ml inj SUBQ SCH ×3 (05:17→20:16)
[2017-09-26 07:51] LABS: HEMATOCRIT 27.5 % (42.0-52.0); HEMOGLOBIN 9.1 G/DL (14.2-18.0); MEAN CORPUSCULAR VOLUME 98 FL (80-99); PLATELET COUNT 270 K/UL (150-450); RED BLOOD COUNT 2.81 M/UL (4.70-6.10); RED CELL DISTRIBUTION WIDTH 15.4 % (11.6-14.8)
[2017-09-26 07:52] LABS: WHITE BLOOD COUNT 25.3 K/UL (4.8-10.8)
[2017-09-26] MEDS: Albuterol/Ipratropium 3ml neb HHN SCH ×3 (08:26→19:00)
--- NOTE | 2017-09-26 09:50 | Nephrology Progress Note ---
Assessment/Plan Problem List: (1) ESRD (end stage renal disease) on dialysis (2) HTN (hypertension) (3) Pneumonia (4) Depression Assessment status: - End-stage renal disease, on hemodialysis. - Left lower lobe pneumonia. - Leukocytosis. - Hypertension. - Depression. Plan Plan; no labs today HD 09/25 next 09/27 Adjust BP meds continue per consultants taper steroids as possible FU with CS MDs Subjective ROS Limited/Unobtainable: No Constitutional: Reports: malaise Objective Objective Last 24 Hour Vital Signs Date Time Temp Pulse Resp B/P (MAP) Pulse Ox O2 Delivery O2 Flow Rate FiO2 09/26/17 08:34 69 22 98 Room Air 21 09/26/17 08:27 67 20 Room Air 09/26/17 08:26 67 20 93 Room Air 21 09/26/17 08:00 97.9 65 19 141/78 95 09/26/17 04:00 98.0 71 18 128/77 95 Room Air 09/26/17 00:23 Room Air 09/26/17 00:22 98.1 73 24 119/69 Room Air 09/25/17 21:00 Room Air 09/25/17 21:00 97.0 67 28 143/82 Room Air 09/25/17 20:00 98.0 66 18 143/ 95 Room Air 09/25/17 19:29 61 28 99 Room Air 21 09/25/17 19:24 67 18 96 Room Air 21 09/25/17 19:00 68 20 Room Air 09/25/17 16:27 97.5 69 19 146/76 97 09/25/17 13:29 65 20 99 Room Air 09/25/17 13:20 63 20 98 Room Air 09/25/17 12:00 96.8 69 20 146/82 97 Intake and Output 09/25/17 09/26/17 19:00 07:00 Intake Total 500 ml 350 ml Output Total 350 ml 1600 ml Balance 150 ml -1250 ml Intake Oral 500 ml 350 ml Output Urine Total 350 ml 600 ml Hemodialysis UF 1000 ml # Voids 3 2 Laboratory Tests 09/26/17 05:30: White Blood Count 25.3*H, Red Blood Count 2.81L, Hemoglobin 9.1L, Hematocrit 27.5L, Mean Corpuscular Volume 98, Mean Corpuscular Hemoglobin 32.6H, Mean Corpuscular Hemoglobin Concent 33.2, Red Cell Distribution Width 15.4H, Platelet Count 270, Mean Platelet Volume 8.0, Neutrophils (%) (Auto) , Lymphocytes (%) (Auto) , Monocytes (%) (Auto) , Eosinophils (%) (Auto) , Basophils (%) (Auto) , Neutrophils % (Manual) [Pending], Lymphocytes % (Manual) [Pending], Platelet Estimate [Pending], Platelet Morphology [Pending] Height (Feet): 5 Height (Inches): 11.00 Weight (Pounds): 201 Cardiovascular: normal rate Respiratory/Chest: decreased breath sounds Abdomen: soft, distended Objective no change ROMEL RAJAN Sep 26, 2017 09:49
[2017-09-26] MEDS: Aspirin Baby 81mg ORAL SCH (10:17)
[2017-09-26] MEDS: Tamsulosin 0.4mg cap ORAL SCH ×2 (10:17→18:35)
[2017-09-26] MEDS: BuPROPion XL 150mg tab ORAL SCH (10:17)
[2017-09-26] MEDS: Docusate 100mg cap ORAL SCH ×3 (10:17→18:00)
[2017-09-26] MEDS: Cosopt Opth Soln 10 mL Btl BOTH EYES SCH ×2 (10:18→18:35)
[2017-09-26] MEDS: Artificial Tears 1.4% Op Soln BOTH EYES PRN (10:18)
--- NOTE | 2017-09-26 10:43 | Infectious Diseases Prog Note ---
Assessment/Plan Assessment/Plan LLL Pna (seen in OSH CXR), however CXR here neg -CXR 09/22 No acute process -CXR: No radiographic evidence of acute cardiopulmonary disease. -influenza neg -sp cx normal ian Leukocytosis, worsening after steroids but was still elevated prior to initiation of steroids- ?etiology- no clear source- possibly exacerbated by recent steroids administration. All cx neg, CRP low and improving- r/o portacath infection. +Constipated, doubt Cdiff- No obvious signs of infection and patient clinically stable and s/p empiric abx course -CT chest/abd/p w/: No acute findings appreciated within the chest abdomen or pelvis. No source of the infection identified. 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 Diverticulosis of the colon. No definite evidence of diverticulitis. Spondylosis. Multiple bilateral renal cysts. Small hiatal hernia.Evidence of previous prostate surgery -Abd US: Chronic renal disease/insufficiency with multiple cysts. Suspicion of a mid abdominal fusiform aneurysm measuring about 3 cm -afebrile -u/a neg; Ucx Neg -Bcx NTD Constipation -KUB: Mild amount of retained feces in the ascending and transverse colon, nonspecific. HTN MDD recent ESRD started on HD on Mid Aug 2017 (at [facility]) s/p perma cath R upper chest Plan: -Peripheral smear review, BCx from R porth cath -Continue to monitor off abx unless febrile, HD stable -Patient is clinically stable without obvious source of infection and anxious to go back to Rehab. Given stability ok to discharge back to Rehab facility and have patient repeat CBC in 1 week with PCP f/u in 1 week and strict return precautions --If WBC elevation persists, may need tagged WBC scan -09/23 SP Cefepime #7 -09/21 SP Azithromycin #5 -f/u cx -Monitor CBC/BMP, temperatures; -aspiration precautions Discussed with RN Subjective Allergies: Coded Allergies: CIPROFLOXACIN (Verified Allergy, Unknown, 09/17/17) PENICILLINS (Verified Allergy, Unknown, 09/20/17) tolareted Cefepime Sep 2017 Subjective afebrile leukocytosis stable/slighlty improved no complains except for constipatio which is improving all cx NTD Objective Vital Signs Last 24 Hour Vital Signs Date Time Temp Pulse Resp B/P (MAP) Pulse Ox O2 Delivery O2 Flow Rate FiO2 09/26/17 08:34 69 22 98 Room Air 21 09/26/17 08:27 67 20 Room Air 21 09/26/17 08:26 67 20 93 Room Air 21 09/26/17 08:00 97.9 65 19 141/78 95 09/26/17 04:00 98.0 71 18 128/77 95 Room Air 09/26/17 00:23 Room Air 09/26/17 00:22 98.1 73 24 119/69 Room Air 09/25/17 21:00 Room Air 09/25/17 21:00 97.0 67 28 143/82 Room Air 09/25/17 20:00 98.0 66 18 143/ 95 Room Air 09/25/17 19:29 61 28 99 Room Air 21 09/25/17 19:24 67 18 96 Room Air 21 09/25/17 19:00 68 20 Room Air 21 09/25/17 16:27 97.5 69 19 146/76 97 09/25/17 13:29 65 20 99 Room Air 21 09/25/17 13:20 63 20 98 Room Air 21 09/25/17 12:00 96.8 69 20 146/82 97 Height (Feet): 5 Height (Inches): 11.00 Weight (Pounds): 201 Objective GENERAL: The patient is a well-developed, well-nourished, white male, in no apparent distress. HEENT: Eyes, pupils are equal and responsive to light and accommodation. Extraocular movements are intact. NECK: Supple without lymphadenopathy. CHEST: CTA x2 CARDIOVASCULAR: Regular rhythm and rate. S1 and S2 are normal without murmurs, rubs, or gallops. ABDOMEN: Soft, nontender, and nondistended. Positive bowel sounds. No evidence of hepatosplenomegaly. Currently, no rebound or guarding noted. EXTREMITIES: Negative for clubbing, cyanosis, or edema. R chest ruslan cath ihn place , no signs of infection NEUROLOGIC: Cranial nerves II through XII are grossly intact without focal deficits. Motor strength is 5/5 bilaterally. Deep tendon reflexes are 2+ plantar. Laboratory Tests Test 09/26/17 05:30 White Blood Count 25.3 K/UL (4.8-10.8) *H Red Blood Count 2.81 M/UL (4.70-6.10) L Hemoglobin 9.1 G/DL (14.2-18.0) L Hematocrit 27.5 % (42.0-52.0) L Mean Corpuscular Volume 98 FL (80-99) Mean Corpuscular Hemoglobin 32.6 PG (27.0-31.0) H Mean Corpuscular Hemoglobin Concent 33.2 G/DL (32.0-36.0) Red Cell Distribution Width 15.4 % (11.6-14.8) H Platelet Count 270 K/UL (150-450) Mean Platelet Volume 8.0 FL (6.5-10.1) Neutrophils (%) (Auto) % (45.0-75.0) Lymphocytes (%) (Auto) % (20.0-45.0) Monocytes (%) (Auto) % (1.0-10.0) Eosinophils (%) (Auto) % (0.0-3.0) Basophils (%) (Auto) % (0.0-2.0) Neutrophils % (Manual) Pending Lymphocytes % (Manual) Pending Platelet Estimate Pending Platelet Morphology Pending Current Medications Medications (Trade) Dose Ordered Sig/Jessica Route PRN Reason Start Time Stop Time Status Last Admin Dose Admin Acetaminophen (Tylenol) 650 mg Q6H PRN ORAL Mild Pain/Temp > 100.5 09/17/17 02:15 10/17/17 02:14 Acetaminophen/ Hydrocodone Bitart ([place] 5/325) 1 tab Q6H PRN ORAL Severe Pain (Pain Scale 4-10) 09/23/17 14:15 09/30/17 14:14 Albuterol/ Ipratropium (Albuterol/ Ipratropium) 3 ml Q4H PRN HHN Shortness of Breath 09/23/17 13:30 09/28/17 13:29 Albuterol/ Ipratropium (Albuterol/ Ipratropium) 3 ml TIDRT HHN 09/22/17 19:00 09/27/17 18:59 09/26/17 08:26 Artificial Tears (Akwa-Tears) 2 drop Q2H PRN BOTH EYES Dry Eyes 09/18/17 12:15 10/18/17 12:14 09/20/17 08:47 Aspirin (ASA) 81 mg DAILY ORAL 09/17/17 09:00 10/17/17 08:59 09/26/17 10:17 Benzonatate (Tessalon Perles) 100 mg THREE TIMES A DAY PRN ORAL For Cough 09/18/17 06:45 10/18/17 06:44 Bupropion HCl (Wellbutrin XL) 150 mg DAILY ORAL 09/17/17 18:00 10/17/17 17:59 09/26/17 10:17 Docusate Sodium (Colace) 100 mg THREE TIMES A DAY ORAL 09/18/17 18:00 10/18/17 17:59 09/26/17 10:17 Dorzolamide/ Timolol (Cosopt) 1 drop BID BOTH EYES 09/18/17 09:00 10/18/17 08:59 09/26/17 10:18 Epoetin Jerod (Procrit (for ESRD on dialysis)) 10,000 units MON-MON-MON SUBQ 09/18/17 21:00 10/18/17 20:59 09/25/17 20:33 Famotidine (Pepcid) 20 mg DAILY ORAL 09/18/17 09:00 10/18/17 08:59 09/26/17 10:17 Heparin Sodium (Porcine) (Heparin 5000 units/ml) 5,000 units EVERY 8 HOURS SUBQ 09/17/17 14:00 10/17/17 13:59 09/26/17 05:17 Mirtazapine (Remeron) 15 mg BEDTIME ORAL 09/17/17 21:00 10/17/17 20:59 09/25/17 20:33 Ondansetron HCl (Zofran) 4 mg Q4H PRN IVP Nausea & Vomiting 09/17/17 02:15 10/17/17 02:14 Sevelamer Carbonate (Renvela) 800 mg THREE TIMES A DAY ORAL 09/18/17 18:00 10/18/17 17:59 09/26/17 10:17 Tamsulosin HCl (Flomax) 0.4 mg BID ORAL 09/18/17 09:00 10/18/17 08:59 09/26/17 10:17 Griselda Mazariegos M.D. Sep 26, 2017 10:43
--- NOTE | 2017-09-26 15:33 | General Progress Note ---
Assessment/Plan Status: stable, progressing Subjective Date patient seen: Sep 25, 2017 Neurologic/Psychiatric: Reports: anxiety, depressed, emotional problems Allergies: Coded Allergies: CIPROFLOXACIN (Verified Allergy, Unknown, 09/17/17) PENICILLINS (Verified Allergy, Unknown, 09/20/17) tolareted Cefepime Sep 2017 Objective Last 24 Hour Vital Signs Date Time Temp Pulse Resp B/P (MAP) Pulse Ox O2 Delivery O2 Flow Rate FiO2 09/26/17 13:40 62 20 97 Room Air 21 09/26/17 13:29 61 18 96 Room Air 21 09/26/17 12:00 97.7 57 20 148/86 96 09/26/17 08:34 69 22 98 Room Air 21 09/26/17 08:27 67 20 Room Air 21 09/26/17 08:26 67 20 93 Room Air 21 09/26/17 08:00 97.9 65 19 141/78 95 09/26/17 04:00 98.0 71 18 128/77 95 Room Air 09/26/17 00:23 Room Air 09/26/17 00:22 98.1 73 24 119/69 Room Air 09/25/17 21:00 Room Air 09/25/17 21:00 97.0 67 28 143/82 Room Air 09/25/17 20:00 98.0 66 18 143/ 95 Room Air 09/25/17 19:29 61 28 99 Room Air 21 09/25/17 19:24 67 18 96 Room Air 21 09/25/17 19:00 68 20 Room Air 09/25/17 16:27 97.5 69 19 146/76 97 Intake and Output 09/25/17 09/26/17 19:00 07:00 Intake Total 500 ml 350 ml Output Total 350 ml 1600 ml Balance 150 ml -1250 ml Intake Oral 500 ml 350 ml Output Urine Total 350 ml 600 ml Hemodialysis UF 1000 ml # Voids 3 2 Laboratory Tests 09/26/17 05:30: White Blood Count 25.3*H, Red Blood Count 2.81L, Hemoglobin 9.1L, Hematocrit 27.5L, Mean Corpuscular Volume 98, Mean Corpuscular Hemoglobin 32.6H, Mean Corpuscular Hemoglobin Concent 33.2, Red Cell Distribution Width 15.4H, Platelet Count 270, Mean Platelet Volume 8.0, Neutrophils (%) (Auto) , Lymphocytes (%) (Auto) , Monocytes (%) (Auto) , Eosinophils (%) (Auto) , Basophils (%) (Auto) , Differential Total Cells Counted 100, Neutrophils % ( Manual) 87H, Lymphocytes % (Manual) 7L, Monocytes % (Manual) 6, Eosinophils % ( Manual) 0, Basophils % (Manual) 0, Band Neutrophils 0, Platelet Estimate Adequate, Platelet Morphology Normal, Hypochromasia 2+, Anisocytosis 1+ Height (Feet): 5 Height (Inches): 11.00 Weight (Pounds): 201 General Appearance: no apparent distress, alert Neurologic: alert, oriented x 3, responsive Trudi Escobar M.D. Sep 26, 2017 15:33
--- NOTE | 2017-09-26 17:46 | Internal Med Progress Note ---
Subjective Date of Service: Sep 26, 2017 Physician Name Flores,Karma Attending Physician Dung Mustafa MD Current Medications Medications (Trade) Dose Ordered Sig/Jessica Route PRN Reason Start Time Stop Time Status Last Admin Dose Admin Acetaminophen (Tylenol) 650 mg Q6H PRN ORAL Mild Pain/Temp > 100.5 09/17/17 02:15 10/17/17 02:14 Acetaminophen/ Hydrocodone Bitart ([place] 5/325) 1 tab Q6H PRN ORAL Severe Pain (Pain Scale 4-10) 09/23/17 14:15 09/30/17 14:14 Albuterol/ Ipratropium (Albuterol/ Ipratropium) 3 ml Q4H PRN HHN Shortness of Breath 09/23/17 13:30 09/28/17 13:29 Albuterol/ Ipratropium (Albuterol/ Ipratropium) 3 ml TIDRT HHN 09/22/17 19:00 09/27/17 18:59 09/26/17 13:29 Artificial Tears (Akwa-Tears) 2 drop Q2H PRN BOTH EYES Dry Eyes 09/18/17 12:15 10/18/17 12:14 09/20/17 08:47 Aspirin (ASA) 81 mg DAILY ORAL 09/17/17 09:00 10/17/17 08:59 09/26/17 10:17 Benzonatate (Tessalon Perles) 100 mg THREE TIMES A DAY PRN ORAL For Cough 09/18/17 06:45 10/18/17 06:44 Bupropion HCl (Wellbutrin XL) 150 mg DAILY ORAL 09/17/17 18:00 10/17/17 17:59 09/26/17 10:17 Docusate Sodium (Colace) 100 mg THREE TIMES A DAY ORAL 09/18/17 18:00 10/18/17 17:59 09/26/17 10:17 Dorzolamide/ Timolol (Cosopt) 1 drop BID BOTH EYES 09/18/17 09:00 10/18/17 08:59 09/26/17 10:18 Epoetin Jerod (Procrit (for ESRD on dialysis)) 10,000 units MON-WED-MON SUBQ 09/18/17 21:00 10/18/17 20:59 09/25/17 20:33 Famotidine (Pepcid) 20 mg DAILY ORAL 09/18/17 09:00 10/18/17 08:59 09/26/17 10:17 Heparin Sodium (Porcine) (Heparin 5000 units/ml) 5,000 units EVERY 8 HOURS SUBQ 09/17/17 14:00 10/17/17 13:59 09/26/17 05:17 Mirtazapine (Remeron) 15 mg BEDTIME ORAL 09/17/17 21:00 10/17/17 20:59 09/25/17 20:33 Ondansetron HCl (Zofran) 4 mg Q4H PRN IVP Nausea & Vomiting 09/17/17 02:15 10/17/17 02:14 Sevelamer Carbonate (Renvela) 800 mg THREE TIMES A DAY ORAL 09/18/17 18:00 10/18/17 17:59 09/26/17 13:17 Tamsulosin HCl (Flomax) 0.4 mg BID ORAL 09/18/17 09:00 10/18/17 08:59 09/26/17 10:17 Allergies: Coded Allergies: CIPROFLOXACIN (Verified Allergy, Unknown, 09/17/17) PENICILLINS (Verified Allergy, Unknown, 09/20/17) tolareted Cefepime Sep 2017 ROS Limited/Unobtainable: No Constitutional: Reports: no symptoms HEENT: Reports: no symptoms Cardiovascular: Reports: no symptoms Respiratory: Reports: no symptoms Gastrointestinal/Abdominal: Reports: no symptoms Genitourinary: Reports: no symptoms Neurologic/Psychiatric: Reports: no symptoms Subjective 81 YO M with shortness of breath. Now pneumonia. Cover for [facility]-Dr Mustafa. Discharge held due to worsening leukocytosis Objective Last Vital Signs Date Time Temp Pulse Resp B/P (MAP) Pulse Ox O2 Delivery O2 Flow Rate FiO2 09/26/17 16:00 97.2 68 20 151/93 96 09/26/17 13:40 Room Air 21 09/23/17 19:28 2.0 Laboratory Tests Test 09/26/17 05:30 White Blood Count 25.3 K/UL (4.8-10.8) *H Red Blood Count 2.81 M/UL (4.70-6.10) L Hemoglobin 9.1 G/DL (14.2-18.0) L Hematocrit 27.5 % (42.0-52.0) L Mean Corpuscular Volume 98 FL (80-99) Mean Corpuscular Hemoglobin 32.6 PG (27.0-31.0) H Mean Corpuscular Hemoglobin Concent 33.2 G/DL (32.0-36.0) Red Cell Distribution Width 15.4 % (11.6-14.8) H Platelet Count 270 K/UL (150-450) Mean Platelet Volume 8.0 FL (6.5-10.1) Neutrophils (%) (Auto) % (45.0-75.0) Lymphocytes (%) (Auto) % (20.0-45.0) Monocytes (%) (Auto) % (1.0-10.0) Eosinophils (%) (Auto) % (0.0-3.0) Basophils (%) (Auto) % (0.0-2.0) Differential Total Cells Counted 100 Neutrophils % (Manual) 87 % (45-75) H Lymphocytes % (Manual) 7 % (20-45) L Monocytes % (Manual) 6 % (1-10) Eosinophils % (Manual) 0 % (0-3) Basophils % (Manual) 0 % (0-2) Band Neutrophils 0 % (0-8) Platelet Estimate Adequate Platelet Morphology Normal Hypochromasia 2+ Anisocytosis 1+ Intake and Output 09/25/17 09/26/17 19:00 07:00 Intake Total 500 ml 350 ml Output Total 350 ml 1600 ml Balance 150 ml -1250 ml Intake Oral 500 ml 350 ml Output Urine Total 350 ml 600 ml Hemodialysis UF 1000 ml # Voids 3 2 Objective General Appearance: WD/WN, no apparent distress, alert, mild distress EENT: PERRL/EOMI, normal ENT inspection, TMs normal Neck: non-tender, normal alignment, supple, normal inspection Cardiovascular: normal peripheral pulses, normal rate, regular rhythm, no gallop/murmur, no JVD Respiratory/Chest: chest wall non-tender, no respiratory distress, no accessory muscle use, crackles/rales, rhonchi - bilaterally, expiratory wheezing Abdomen: normal bowel sounds, non tender, soft, no organomegaly, no mass Extremities: normal range of motion Neurologic: cork compounder II-XII grossly normal, no motor/sensory deficits Skin: normal pigmentation, warm/dry Assessment/Plan Problem List: (1) Shortness of breath Assessment & Plan: See pulmonary note. Continue albuterol nebs and IV solumedrol (2) ESRD (end stage renal disease) on dialysis (3) Leukocytosis Assessment & Plan: Worsening on steroids cont abx per ID (4) HTN (hypertension) (5) Depression Assessment & Plan: Continue mirtazipime (6) Pneumonia Assessment & Plan: Continue cefepime-see ID note. Assessment/Plan D/C plan: [facility] Sep 26, 2017 17:46
--- NOTE | 2017-09-26 22:52 | Pulmonology Progress Note ---
Assessment/Plan Problems: (1) Pneumonia (2) ESRD (end stage renal disease) on dialysis (3) HTN (hypertension) (4) Depression (5) Prostate cancer Assessment/Plan improving check cultures HD by nephrology monitor BP dvt prophylaxis. dc planning in progress Subjective ROS Limited/Unobtainable: No HEENT: Repors: no symptoms Respiratory: Reports: no symptoms Allergies: Coded Allergies: CIPROFLOXACIN (Verified Allergy, Unknown, 09/17/17) PENICILLINS (Verified Allergy, Unknown, 09/20/17) tolareted Cefepime Sep 2017 Objective Last 24 Hour Vital Signs Date Time Temp Pulse Resp B/P (MAP) Pulse Ox O2 Delivery O2 Flow Rate FiO2 09/26/17 20:22 71 20 Room Air 21 09/26/17 20:22 Room Air 09/26/17 20:22 Room Air 09/26/17 20:00 97.7 79 20 140/84 99 09/26/17 16:00 97.2 68 20 151/93 96 09/26/17 13:40 62 20 97 Room Air 21 09/26/17 13:29 61 18 96 Room Air 21 09/26/17 12:00 97.7 57 20 148/86 96 09/26/17 08:34 69 22 98 Room Air 21 09/26/17 08:27 67 20 Room Air 21 09/26/17 08:26 67 20 93 Room Air 21 09/26/17 08:00 97.9 65 19 141/78 95 09/26/17 04:00 98.0 71 18 128/77 95 Room Air 09/26/17 00:23 Room Air 09/26/17 00:22 98.1 73 24 119/69 Room Air Intake and Output 09/25/17 09/26/17 19:00 07:00 Intake Total 500 ml 350 ml Output Total 350 ml 1600 ml Balance 150 ml -1250 ml Intake Oral 500 ml 350 ml Output Urine Total 350 ml 600 ml Hemodialysis UF 1000 ml # Voids 3 2 Objective General Appearance: no acute distress HEENT: normocephalic, atraumatic Respiratory/Chest: lungs clear, no respiratory distress, no accessory muscle use Cardiovascular: normal rate, no JVD, CL-femoral intact Abdomen: normal bowel sounds, soft, non tender Extremities: no edema Neurologic/Psychiatric: alert, responsive Musculoskeletal: normal muscle bulk Laboratory Tests 09/26/17 05:30: White Blood Count 25.3*H, Red Blood Count 2.81L, Hemoglobin 9.1L, Hematocrit 27.5L, Mean Corpuscular Volume 98, Mean Corpuscular Hemoglobin 32.6H, Mean Corpuscular Hemoglobin Concent 33.2, Red Cell Distribution Width 15.4H, Platelet Count 270, Mean Platelet Volume 8.0, Neutrophils (%) (Auto) , Lymphocytes (%) (Auto) , Monocytes (%) (Auto) , Eosinophils (%) (Auto) , Basophils (%) (Auto) , Differential Total Cells Counted 100, Neutrophils % ( Manual) 87H, Lymphocytes % (Manual) 7L, Monocytes % (Manual) 6, Eosinophils % ( Manual) 0, Basophils % (Manual) 0, Band Neutrophils 0, Platelet Estimate Adequate, Platelet Morphology Normal, Hypochromasia 2+, Anisocytosis 1+ Current Medications Medications (Trade) Dose Ordered Sig/Jessica Route PRN Reason Start Time Stop Time Status Last Admin Dose Admin Acetaminophen (Tylenol) 650 mg Q6H PRN ORAL Mild Pain/Temp > 100.5 09/17/17 02:15 10/17/17 02:14 Acetaminophen/ Hydrocodone Bitart ([place] 5/325) 1 tab Q6H PRN ORAL Severe Pain (Pain Scale 4-10) 09/23/17 14:15 09/30/17 14:14 Albuterol/ Ipratropium (Albuterol/ Ipratropium) 3 ml Q4H PRN HHN Shortness of Breath 09/23/17 13:30 09/28/17 13:29 Albuterol/ Ipratropium (Albuterol/ Ipratropium) 3 ml TIDRT HHN 09/22/17 19:00 09/27/17 18:59 09/26/17 13:29 Artificial Tears ([place]-Tears) 2 drop Q2H PRN BOTH EYES Dry Eyes 09/18/17 12:15 10/18/17 12:14 09/20/17 08:47 Aspirin (ASA) 81 mg DAILY ORAL 09/17/17 09:00 10/17/17 08:59 09/26/17 10:17 Benzonatate (Tessalon Perles) 100 mg THREE TIMES A DAY PRN ORAL For Cough 09/18/17 06:45 10/18/17 06:44 Bupropion HCl (Wellbutrin XL) 150 mg DAILY ORAL 09/17/17 18:00 10/17/17 17:59 09/26/17 10:17 Docusate Sodium (Colace) 100 mg THREE TIMES A DAY ORAL 09/18/17 18:00 10/18/17 17:59 09/26/17 10:17 Dorzolamide/ Timolol (Cosopt) 1 drop BID BOTH EYES 09/18/17 09:00 10/18/17 08:59 09/26/17 18:35 Epoetin Jerod (Procrit (for ESRD on dialysis)) 10,000 units MON-MON-MON SUBQ 09/18/17 21:00 10/18/17 20:59 09/25/17 20:33 Famotidine (Pepcid) 20 mg DAILY ORAL 09/18/17 09:00 10/18/17 08:59 09/26/17 10:17 Heparin Sodium (Porcine) (Heparin 5000 units/ml) 5,000 units EVERY 8 HOURS SUBQ 09/17/17 14:00 10/17/17 13:59 09/26/17 20:16 Mirtazapine (Remeron) 15 mg BEDTIME ORAL 09/17/17 21:00 10/17/17 20:59 09/26/17 20:14 Ondansetron HCl (Zofran) 4 mg Q4H PRN IVP Nausea & Vomiting 09/17/17 02:15 10/17/17 02:14 Sevelamer Carbonate (Renvela) 800 mg THREE TIMES A DAY ORAL 09/18/17 18:00 10/18/17 17:59 09/26/17 18:35 Tamsulosin HCl (Flomax) 0.4 mg BID ORAL 09/18/17 09:00 10/18/17 08:59 09/26/17 18:35 PENNIE CHAMBERLAIN Sep 26, 2017 22:52
[2017-09-27] VITALS (7 sets, daily range): BP systolic 118–162; BP diastolic 57–82
[2017-09-27] MEDS: Heparin 5000 units/ml inj SUBQ SCH ×3 (05:07→22:19)
[2017-09-27] MEDS: Albuterol/Ipratropium 3ml neb HHN SCH ×2 (07:20→13:51)
[2017-09-27 08:39] LABS: HEMOGLOBIN 9.6 G/DL (14.2-18.0); MEAN CORPUSCULAR VOLUME 101 FL (80-99); PLATELET COUNT 263 K/UL (150-450); RED BLOOD COUNT 3.06 M/UL (4.70-6.10)
[2017-09-27 08:42] LABS: WHITE BLOOD COUNT 26.5 K/UL (4.8-10.8)
[2017-09-27 09:10] LABS: ALANINE AMINOTRANSFERASE 34 U/L (12-78); ALBUMIN 2.8 G/DL (3.4-5.0); ALBUMIN/GLOBULIN RATIO 0.7 (1.0-2.7); ALKALINE PHOSPHATASE 131 U/L (46-116); ANION GAP 10 mmol/L (5-15); ASPARTATE AMINO TRANSFERASE 18 U/L (15-37); BILIRUBIN,TOTAL 0.5 MG/DL (0.2-1.0); BLOOD UREA NITROGEN 71 mg/dL (7-18); CALCIUM 8.6 MG/DL (8.5-10.1); CARBON DIOXIDE 30 MMOL/L (21-32); CHLORIDE 101 MMOL/L (98-107); PHOSPHORUS 4.4 MG/DL (2.5-4.9); POTASSIUM 4.1 MMOL/L (3.5-5.1); SODIUM 141 MMOL/L (136-145)
--- NOTE | 2017-09-27 09:42 | Progress Note ---
DATE: 09/26/2017 SUBJECTIVE: The patient presented with dysphoria and low energy. No behavioral issues. The patient is calm, cooperative, watching TV, resting. No acute distress. MENTAL STATUS EXAMINATION: The patient is alert and oriented x3. Mood is dysphoric. Affect is constricted. Congruent mood. Thought process is concrete. Thought content, no suicidal or homicidal ideation. ASSESSMENT: Depression and anxiety, stable. PLAN: 1. We will continue bupropion and Wellbutrin 100 mg and 50 mg in the morning. 2. Mirtazapine 50 mg at bedtime. 3. We will continue to follow and readjust the medications. Trudi Escobar M.D. DR: Jamaal JOB#: [id number] CC:
--- NOTE | 2017-09-27 09:51 | Nephrology Progress Note ---
Assessment/Plan Problem List: (1) ESRD (end stage renal disease) on dialysis (2) HTN (hypertension) (3) Pneumonia (4) Depression Assessment status: - End-stage renal disease, on hemodialysis. - Left lower lobe pneumonia. - Leukocytosis. persists - Hypertension. - Depression. Plan Plan; HD 09/27 Adjust BP meds continue per consultants taper steroids as possible FU with CS MDs Subjective ROS Limited/Unobtainable: No Constitutional: Reports: malaise Objective Objective Last 24 Hour Vital Signs Date Time Temp Pulse Resp B/P (MAP) Pulse Ox O2 Delivery O2 Flow Rate FiO2 09/27/17 08:15 97.9 71 21 162/82 99 Room Air 09/27/17 07:30 65 20 99 Room Air 21 09/27/17 07:20 66 20 Room Air 21 09/27/17 07:20 63 20 100 Room Air 21 09/27/17 04:22 97.7 58 20 118/57 91 Room Air 09/26/17 23:57 97.7 68 20 125/64 95 09/26/17 20:22 71 20 Room Air 21 09/26/17 20:22 Room Air 09/26/17 20:22 Room Air 09/26/17 20:00 97.7 79 20 140/84 99 09/26/17 16:00 97.2 68 20 151/93 96 09/26/17 13:40 62 20 97 Room Air 21 09/26/17 13:29 61 18 96 Room Air 21 09/26/17 12:00 97.7 57 20 148/86 96 Intake and Output 09/26/17 09/27/17 19:00 07:00 Intake Total 700 ml Output Total 200 ml 600 ml Balance 500 ml -600 ml Intake Oral 700 ml Output Urine Total 200 ml 600 ml # Voids 4 # Bowel Movements 1 Laboratory Tests 09/27/17 07:40: White Blood Count 26.5*H, Red Blood Count 3.06L, Hemoglobin 9.6L, Hematocrit 31.0L, Mean Corpuscular Volume 101H, Mean Corpuscular Hemoglobin 31.4H, Mean Corpuscular Hemoglobin Concent 31.0L, Red Cell Distribution Width 17.0H, Platelet Count 263, Mean Platelet Volume 8.0, Neutrophils (%) (Auto) , Lymphocytes (%) (Auto) , Monocytes (%) (Auto) , Eosinophils (%) (Auto) , Basophils (%) (Auto) , Neutrophils % (Manual) [Pending], Lymphocytes % (Manual) [Pending], Platelet Estimate [Pending], Platelet Morphology [Pending], Sodium Level 141, Potassium Level 4.1, Chloride Level 101, Carbon Dioxide Level 30, Anion Gap 10, Blood Urea Nitrogen 71H, Creatinine 5.0H, Estimat Glomerular Filtration Rate , Glucose Level 151H, Calcium Level 8.6, Phosphorus Level 4.4, Magnesium Level 2.2, Total Bilirubin 0.5, Aspartate Amino Transf (AST/SGOT) 18, Alanine Aminotransferase (ALT/SGPT) 34, Alkaline Phosphatase 131H, C-Reactive Protein, Quantitative < 0.4, Pro-B-Type Natriuretic Peptide 694H, Total Protein 6.9, Albumin 2.8L, Globulin 4.1, Albumin/Globulin Ratio 0.7L Height (Feet): 5 Height (Inches): 11.00 Weight (Pounds): 201 General Appearance: no apparent distress Respiratory/Chest: decreased breath sounds Abdomen: soft Objective no change ROMLE RAJAN Sep 27, 2017 09:51
[2017-09-27] MEDS: Docusate 100mg cap ORAL SCH ×4 (09:55→17:24)
[2017-09-27] MEDS: BuPROPion XL 150mg tab ORAL SCH (09:56)
[2017-09-27] MEDS: Aspirin Baby 81mg ORAL SCH (09:56)
[2017-09-27] MEDS: Tamsulosin 0.4mg cap ORAL SCH ×2 (09:56→17:24)
[2017-09-27] MEDS: Cosopt Opth Soln 10 mL Btl BOTH EYES SCH ×2 (10:03→17:24)
--- NOTE | 2017-09-27 12:14 | Infectious Diseases Prog Note ---
Assessment/Plan Assessment/Plan LLL Pna (seen in OSH CXR), however CXR here neg -CXR 09/22 No acute process -CXR: No radiographic evidence of acute cardiopulmonary disease. -influenza neg -sp cx normal ian Leukocytosis, worsening after steroids but was still elevated prior to initiation of steroids- ?etiology- no clear source- possibly exacerbated by recent steroids administration. All cx neg, CRP now normal - r/o portacath infection. +Constipated, doubt Cdiff- No obvious signs of infection and patient clinically stable and s/p empiric abx course -CT chest/abd/p w/: No acute findings appreciated within the chest abdomen or pelvis. No source of the infection identified. 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 Diverticulosis of the colon. No definite evidence of diverticulitis. Spondylosis. Multiple bilateral renal cysts. Small hiatal hernia.Evidence of previous prostate surgery -Abd US: Chronic renal disease/insufficiency with multiple cysts. Suspicion of a mid abdominal fusiform aneurysm measuring about 3 cm -afebrile -u/a neg; Ucx Neg -Bcx Neg Constipation -KUB: Mild amount of retained feces in the ascending and transverse colon, nonspecific. HTN MDD recent ESRD started on HD on Mid Aug 2017 (at [facility]) s/p perma cath R upper chest Plan: -f/u BCx from R porth cath and obtain TTE -cdiff -Continue to monitor off abx unless febrile, HD unstable -Patient is clinically stable without obvious source of infection and anxious to go back to Rehab. Given stability ok to discharge back to Rehab facility and have patient repeat CBC in 1 week with PCP f/u in 1 week and strict return precautions --If WBC elevation persists, may need tagged WBC scan -09/23 SP Cefepime #7 -09/21 SP Azithromycin #5 -f/u cx -Monitor CBC/BMP, temperatures; -aspiration precautions Discussed with RN Subjective Allergies: Coded Allergies: CIPROFLOXACIN (Verified Allergy, Unknown, 09/17/17) PENICILLINS (Verified Allergy, Unknown, 09/20/17) tolareted Cefepime Sep 2017 Subjective afebrile persistent leukocytosis CRp normal now no complains Clinically stable and improved all cx NTD Objective Vital Signs Last 24 Hour Vital Signs Date Time Temp Pulse Resp B/P (MAP) Pulse Ox O2 Delivery O2 Flow Rate FiO2 09/27/17 11:58 98.7 58 22 132/68 99 Room Air 09/27/17 08:15 97.9 71 21 162/82 99 Room Air 09/27/17 07:30 65 20 99 Room Air 21 09/27/17 07:20 66 20 Room Air 21 09/27/17 07:20 63 20 100 Room Air 21 09/27/17 04:22 97.7 58 20 118/57 91 Room Air 09/26/17 23:57 97.7 68 20 125/64 95 09/26/17 20:22 71 20 Room Air 21 09/26/17 20:22 Room Air 09/26/17 20:22 Room Air 09/26/17 20:00 97.7 79 20 140/84 99 09/26/17 16:00 97.2 68 20 151/93 96 09/26/17 13:40 62 20 97 Room Air 21 09/26/17 13:29 61 18 96 Room Air 21 Height (Feet): 5 Height (Inches): 11.00 Weight (Pounds): 201 Objective GENERAL: The patient is a well-developed, well-nourished, white male, in no apparent distress. HEENT: Eyes, pupils are equal and responsive to light and accommodation. Extraocular movements are intact. NECK: Supple without lymphadenopathy. CHEST: CTA x2 CARDIOVASCULAR: Regular rhythm and rate. S1 and S2 are normal without murmurs, rubs, or gallops. ABDOMEN: Soft, nontender, and nondistended. Positive bowel sounds. No evidence of hepatosplenomegaly. Currently, no rebound or guarding noted. EXTREMITIES: Negative for clubbing, cyanosis, or edema. R chest ruslan cath ihn place , no signs of infection NEUROLOGIC: Cranial nerves II through XII are grossly intact without focal deficits. Motor strength is 5/5 bilaterally. Deep tendon reflexes are 2+ plantar. Laboratory Tests Test 09/27/17 07:40 White Blood Count 26.5 K/UL (4.8-10.8) *H Red Blood Count 3.06 M/UL (4.70-6.10) L Hemoglobin 9.6 G/DL (14.2-18.0) L Hematocrit 31.0 % (42.0-52.0) L Mean Corpuscular Volume 101 FL (80-99) H Mean Corpuscular Hemoglobin 31.4 PG (27.0-31.0) H Mean Corpuscular Hemoglobin Concent 31.0 G/DL (32.0-36.0) L Red Cell Distribution Width 17.0 % (11.6-14.8) H Platelet Count 263 K/UL (150-450) Mean Platelet Volume 8.0 FL (6.5-10.1) Neutrophils (%) (Auto) % (45.0-75.0) Lymphocytes (%) (Auto) % (20.0-45.0) Monocytes (%) (Auto) % (1.0-10.0) Eosinophils (%) (Auto) % (0.0-3.0) Basophils (%) (Auto) % (0.0-2.0) Differential Total Cells Counted 100 Neutrophils % (Manual) 74 % (45-75) Lymphocytes % (Manual) 14 % (20-45) L Monocytes % (Manual) 6 % (1-10) Eosinophils % (Manual) 0 % (0-3) Basophils % (Manual) 0 % (0-2) Metamyelocytes % 2 % (0-0) H Band Neutrophils 4 % (0-8) Platelet Estimate Adequate Platelet Morphology Normal Sodium Level 141 MMOL/L (136-145) Potassium Level 4.1 MMOL/L (3.5-5.1) Chloride Level 101 MMOL/L (98-107) Carbon Dioxide Level 30 MMOL/L (21-32) Anion Gap 10 mmol/L (5-15) Blood Urea Nitrogen 71 mg/dL (7-18) H Creatinine 5.0 MG/DL (0.55-1.30) H Estimat Glomerular Filtration Rate mL/min (>60) Glucose Level 151 MG/DL (74-106) H Calcium Level 8.6 MG/DL (8.5-10.1) Phosphorus Level 4.4 MG/DL (2.5-4.9) Magnesium Level 2.2 MG/DL (1.8-2.4) Total Bilirubin 0.5 MG/DL (0.2-1.0) Aspartate Amino Transf (AST/SGOT) 18 U/L (15-37) Alanine Aminotransferase (ALT/SGPT) 34 U/L (12-78) Alkaline Phosphatase 131 U/L (46-116) H C-Reactive Protein, Quantitative < 0.4 mg/dL (0.00-0.90) Pro-B-Type Natriuretic Peptide 694 pg/mL (0-125) H Total Protein 6.9 G/DL (6.4-8.2) Albumin 2.8 G/DL (3.4-5.0) L Globulin 4.1 g/dL Albumin/Globulin Ratio 0.7 (1.0-2.7) L Current Medications Medications (Trade) Dose Ordered Sig/Jessica Route PRN Reason Start Time Stop Time Status Last Admin Dose Admin Acetaminophen (Tylenol) 650 mg Q6H PRN ORAL Mild Pain/Temp > 100.5 09/17/17 02:15 10/17/17 02:14 Acetaminophen/ Hydrocodone Bitart ([place] 5/325) 1 tab Q6H PRN ORAL Severe Pain (Pain Scale 4-10) 09/23/17 14:15 09/30/17 14:14 Albuterol/ Ipratropium (Albuterol/ Ipratropium) 3 ml Q4H PRN HHN Shortness of Breath 09/23/17 13:30 09/28/17 13:29 Albuterol/ Ipratropium (Albuterol/ Ipratropium) 3 ml TIDRT HHN 09/22/17 19:00 09/27/17 18:59 09/27/17 07:20 Artificial Tears (Akwa-Tears) 2 drop Q2H PRN BOTH EYES Dry Eyes 09/18/17 12:15 10/18/17 12:14 09/20/17 08:47 Aspirin (ASA) 81 mg DAILY ORAL 09/17/17 09:00 10/17/17 08:59 09/27/17 09:56 Benzonatate (Tessalon Perles) 100 mg THREE TIMES A DAY PRN ORAL For Cough 09/18/17 06:45 10/18/17 06:44 09/27/17 09:55 Bupropion HCl (Wellbutrin XL) 150 mg DAILY ORAL 09/17/17 18:00 10/17/17 17:59 09/27/17 09:56 Docusate Sodium (Colace) 100 mg THREE TIMES A DAY ORAL 09/18/17 18:00 10/18/17 17:59 09/27/17 09:55 Dorzolamide/ Timolol (Cosopt) 1 drop BID BOTH EYES 09/18/17 09:00 10/18/17 08:59 09/27/17 10:03 Epoetin Jerod (Procrit (for ESRD on dialysis)) 10,000 units MON-MON-MON SUBQ 09/18/17 21:00 10/18/17 20:59 09/25/17 20:33 Famotidine (Pepcid) 20 mg DAILY ORAL 09/18/17 09:00 10/18/17 08:59 09/27/17 09:56 Heparin Sodium (Porcine) (Heparin 5000 units/ml) 5,000 units EVERY 8 HOURS SUBQ 09/17/17 14:00 10/17/17 13:59 09/26/17 20:16 Mirtazapine (Remeron) 15 mg BEDTIME ORAL 09/17/17 21:00 10/17/17 20:59 09/26/17 20:14 Ondansetron HCl (Zofran) 4 mg Q4H PRN IVP Nausea & Vomiting 09/17/17 02:15 10/17/17 02:14 Sevelamer Carbonate (Renvela) 800 mg THREE TIMES A DAY ORAL 09/18/17 18:00 10/18/17 17:59 09/27/17 09:56 Tamsulosin HCl (Flomax) 0.4 mg BID ORAL 09/18/17 09:00 10/18/17 08:59 09/27/17 09:56 Griselda Mazariegos M.D. Sep 27, 2017 12:13
--- NOTE | 2017-09-27 12:46 | Internal Med Progress Note ---
Subjective Date of Service: Sep 27, 2017 Physician Name Guillen,Karma Attending Physician Dung Mustafa MD Current Medications Medications (Trade) Dose Ordered Sig/Jessica Route PRN Reason Start Time Stop Time Status Last Admin Dose Admin Acetaminophen (Tylenol) 650 mg Q6H PRN ORAL Mild Pain/Temp > 100.5 09/17/17 02:15 10/17/17 02:14 Acetaminophen/ Hydrocodone Bitart ([place] 5/325) 1 tab Q6H PRN ORAL Severe Pain (Pain Scale 4-10) 09/23/17 14:15 09/30/17 14:14 Albuterol/ Ipratropium (Albuterol/ Ipratropium) 3 ml Q4H PRN HHN Shortness of Breath 09/23/17 13:30 09/28/17 13:29 Albuterol/ Ipratropium (Albuterol/ Ipratropium) 3 ml TIDRT HHN 09/22/17 19:00 09/27/17 18:59 09/27/17 07:20 Artificial Tears (Akwa-Tears) 2 drop Q2H PRN BOTH EYES Dry Eyes 09/18/17 12:15 10/18/17 12:14 09/20/17 08:47 Aspirin (ASA) 81 mg DAILY ORAL 09/17/17 09:00 10/17/17 08:59 09/27/17 09:56 Benzonatate (Tessalon Perles) 100 mg THREE TIMES A DAY PRN ORAL For Cough 09/18/17 06:45 10/18/17 06:44 09/27/17 09:55 Bupropion HCl (Wellbutrin XL) 150 mg DAILY ORAL 09/17/17 18:00 10/17/17 17:59 09/27/17 09:56 Docusate Sodium (Colace) 100 mg THREE TIMES A DAY ORAL 09/18/17 18:00 10/18/17 17:59 09/27/17 09:55 Dorzolamide/ Timolol (Cosopt) 1 drop BID BOTH EYES 09/18/17 09:00 10/18/17 08:59 09/27/17 10:03 Epoetin Jerod (Procrit (for ESRD on dialysis)) 10,000 units MON-MON-MON SUBQ 09/18/17 21:00 10/18/17 20:59 09/25/17 20:33 Famotidine (Pepcid) 20 mg DAILY ORAL 09/18/17 09:00 10/18/17 08:59 09/27/17 09:56 Heparin Sodium (Porcine) (Heparin 5000 units/ml) 5,000 units EVERY 8 HOURS SUBQ 09/17/17 14:00 10/17/17 13:59 09/26/17 20:16 Mirtazapine (Remeron) 15 mg BEDTIME ORAL 09/17/17 21:00 10/17/17 20:59 09/26/17 20:14 Ondansetron HCl (Zofran) 4 mg Q4H PRN IVP Nausea & Vomiting 09/17/17 02:15 10/17/17 02:14 Sevelamer Carbonate (Renvela) 800 mg THREE TIMES A DAY ORAL 09/18/17 18:00 10/18/17 17:59 09/27/17 12:28 Tamsulosin HCl (Flomax) 0.4 mg BID ORAL 09/18/17 09:00 10/18/17 08:59 09/27/17 09:56 Allergies: Coded Allergies: CIPROFLOXACIN (Verified Allergy, Unknown, 09/17/17) PENICILLINS (Verified Allergy, Unknown, 09/20/17) tolareted Cefepime Sep 2017 ROS Limited/Unobtainable: No Constitutional: Reports: no symptoms HEENT: Reports: no symptoms Cardiovascular: Reports: no symptoms Respiratory: Reports: no symptoms Gastrointestinal/Abdominal: Reports: no symptoms Genitourinary: Reports: no symptoms Neurologic/Psychiatric: Reports: no symptoms Subjective 81 YO M with shortness of breath. Now pneumonia. Cover for Int Anthony-Dr Mustafa. Discharge held due to worsening leukocytosis Objective Last Vital Signs Date Time Temp Pulse Resp B/P (MAP) Pulse Ox O2 Delivery O2 Flow Rate FiO2 09/27/17 11:58 98.7 58 22 132/68 99 Room Air 09/27/17 07:30 21 09/23/17 19:28 2.0 Laboratory Tests Test 09/27/17 07:40 White Blood Count 26.5 K/UL (4.8-10.8) *H Red Blood Count 3.06 M/UL (4.70-6.10) L Hemoglobin 9.6 G/DL (14.2-18.0) L Hematocrit 31.0 % (42.0-52.0) L Mean Corpuscular Volume 101 FL (80-99) H Mean Corpuscular Hemoglobin 31.4 PG (27.0-31.0) H Mean Corpuscular Hemoglobin Concent 31.0 G/DL (32.0-36.0) L Red Cell Distribution Width 17.0 % (11.6-14.8) H Platelet Count 263 K/UL (150-450) Mean Platelet Volume 8.0 FL (6.5-10.1) Neutrophils (%) (Auto) % (45.0-75.0) Lymphocytes (%) (Auto) % (20.0-45.0) Monocytes (%) (Auto) % (1.0-10.0) Eosinophils (%) (Auto) % (0.0-3.0) Basophils (%) (Auto) % (0.0-2.0) Differential Total Cells Counted 100 Neutrophils % (Manual) 74 % (45-75) Lymphocytes % (Manual) 14 % (20-45) L Monocytes % (Manual) 6 % (1-10) Eosinophils % (Manual) 0 % (0-3) Basophils % (Manual) 0 % (0-2) Metamyelocytes % 2 % (0-0) H Band Neutrophils 4 % (0-8) Platelet Estimate Adequate Platelet Morphology Normal Sodium Level 141 MMOL/L (136-145) Potassium Level 4.1 MMOL/L (3.5-5.1) Chloride Level 101 MMOL/L (98-107) Carbon Dioxide Level 30 MMOL/L (21-32) Anion Gap 10 mmol/L (5-15) Blood Urea Nitrogen 71 mg/dL (7-18) H Creatinine 5.0 MG/DL (0.55-1.30) H Estimat Glomerular Filtration Rate mL/min (>60) Glucose Level 151 MG/DL (74-106) H Calcium Level 8.6 MG/DL (8.5-10.1) Phosphorus Level 4.4 MG/DL (2.5-4.9) Magnesium Level 2.2 MG/DL (1.8-2.4) Total Bilirubin 0.5 MG/DL (0.2-1.0) Aspartate Amino Transf (AST/SGOT) 18 U/L (15-37) Alanine Aminotransferase (ALT/SGPT) 34 U/L (12-78) Alkaline Phosphatase 131 U/L (46-116) H C-Reactive Protein, Quantitative < 0.4 mg/dL (0.00-0.90) Pro-B-Type Natriuretic Peptide 694 pg/mL (0-125) H Total Protein 6.9 G/DL (6.4-8.2) Albumin 2.8 G/DL (3.4-5.0) L Globulin 4.1 g/dL Albumin/Globulin Ratio 0.7 (1.0-2.7) L Intake and Output 09/26/17 09/27/17 19:00 07:00 Intake Total 700 ml Output Total 200 ml 600 ml Balance 500 ml -600 ml Intake Oral 700 ml Output Urine Total 200 ml 600 ml # Voids 4 # Bowel Movements 1 Objective General Appearance: WD/WN, no apparent distress, alert, mild distress EENT: PERRL/EOMI, normal ENT inspection, TMs normal Neck: non-tender, normal alignment, supple, normal inspection Cardiovascular: normal peripheral pulses, normal rate, regular rhythm, no gallop/murmur, no JVD Respiratory/Chest: chest wall non-tender, no respiratory distress, no accessory muscle use, crackles/rales, rhonchi - bilaterally, expiratory wheezing Abdomen: normal bowel sounds, non tender, soft, no organomegaly, no mass Extremities: normal range of motion 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 Continue albuterol nebs and IV solumedrol (2) ESRD (end stage renal disease) on dialysis (3) Leukocytosis Assessment & Plan: Worsening on steroids cont abx per ID (4) HTN (hypertension) (5) Depression Assessment & Plan: Continue mirtazipime (6) Pneumonia Assessment & Plan: Continue cefepime-see ID note. Assessment/Plan D/C plan: [facility] GUILLENKARMA Sep 27, 2017 12:46
--- NOTE | 2017-09-27 15:01 | Cardiology Report ---
APPROVED REPORT EXAM: Two-dimensional and M-mode echocardiogram with Doppler and color Doppler. INDICATION Other M-Mode DIMENSIONS IVSd1.1 (0.7-1.1cm)Left Atrium (MM)3.7 (1.6-4.0cm) LVDd4.6 (3.5-5.6cm)Aortic Root2.9 (2.0-3.7cm) PWd1.3 (0.7-1.1cm)Aortic Cusp Exc.1.5 (1.5-2.0cm) LVDs3.0 (2.5-4.0cm) PWs1.0 cm Technically difficult study due to poor acoustical windows. Patients breathing. Normal left ventricular chamber size, systolic function and wall motion. Left ventricular ejection fraction estimated to be 60-65%. No evidence of left ventricular hypertrophy. No evidence of pericardial or pleural effusion. All other cardiac chamber sizes are within normal limits. Focal aortic valve sclerosis with adequate cusp excursion. Thickened mitral valve leaflets with normal excursion. Mild mitral annulus and aortic root calcification. Pulmonic valve not well visualized. Normal tricuspid valve structure. IVC is normal in size and collapsible with respiration. A color flow and spectral Doppler study was performed and revealed: No aortic regurgitation. Trace mitral regurgitation. Mitral diastolic velocities suggest reduced left ventricular relaxation c/w diastolic dysfunction grade 1. Trace tricuspid regurgitation. Pulmonic regurgitation present.
[2017-09-27] MEDS ORDERED: NS 500ML ONE (15:24)
--- NOTE | 2017-09-27 17:09 | Pulmonology Progress Note ---
Assessment/Plan Problems: (1) Pneumonia (2) ESRD (end stage renal disease) on dialysis (3) HTN (hypertension) (4) Depression (5) Prostate cancer Assessment/Plan improving no new complains check cultures HD by nephrology monitor BP dvt prophylaxis. dc when outpatient HD is arranged. Subjective ROS Limited/Unobtainable: No Constitutional: Reports: no symptoms HEENT: Repors: no symptoms Allergies: Coded Allergies: CIPROFLOXACIN (Verified Allergy, Unknown, 09/17/17) PENICILLINS (Verified Allergy, Unknown, 09/20/17) tolareted Cefepime Sep 2017 Objective Last 24 Hour Vital Signs Date Time Temp Pulse Resp B/P (MAP) Pulse Ox O2 Delivery O2 Flow Rate FiO2 09/27/17 17:02 Room Air 09/27/17 17:01 96.8 67 24 145/70 Room Air 09/27/17 16:00 96.8 67 24 145/70 97 09/27/17 14:00 68 18 99 Room Air 09/27/17 13:54 58 18 99 Room Air 09/27/17 12:30 96.6 61 28 135/70 Room Air 09/27/17 12:30 Room Air 09/27/17 11:58 98.7 58 22 132/68 99 Room Air 09/27/17 08:15 97.9 71 21 162/82 99 Room Air 09/27/17 07:30 65 20 99 Room Air 21 09/27/17 07:20 66 20 Room Air 21 09/27/17 07:20 63 20 100 Room Air 21 09/27/17 04:22 97.7 58 20 118/57 91 Room Air 09/26/17 23:57 97.7 68 20 125/64 95 09/26/17 20:22 71 20 Room Air 21 09/26/17 20:22 Room Air 09/26/17 20:22 Room Air 09/26/17 20:00 97.7 79 20 140/84 99 Intake and Output 09/26/17 09/27/17 19:00 07:00 Intake Total 700 ml Output Total 200 ml 600 ml Balance 500 ml -600 ml Intake Oral 700 ml Output Urine Total 200 ml 600 ml # Voids 4 # Bowel Movements 1 Objective General Appearance: no acute distress HEENT: normocephalic, atraumatic Respiratory/Chest: lungs clear, no respiratory distress, no accessory muscle use Cardiovascular: normal rate, no JVD, CL-femoral intact Abdomen: normal bowel sounds, soft, non tender Extremities: no edema Neurologic/Psychiatric: alert, responsive Musculoskeletal: normal muscle bulk Laboratory Tests 09/27/17 07:40: White Blood Count 26.5*H, Red Blood Count 3.06L, Hemoglobin 9.6L, Hematocrit 31.0L, Mean Corpuscular Volume 101H, Mean Corpuscular Hemoglobin 31.4H, Mean Corpuscular Hemoglobin Concent 31.0L, Red Cell Distribution Width 17.0H, Platelet Count 263, Mean Platelet Volume 8.0, Neutrophils (%) (Auto) , Lymphocytes (%) (Auto) , Monocytes (%) (Auto) , Eosinophils (%) (Auto) , Basophils (%) (Auto) , Differential Total Cells Counted 100, Neutrophils % ( Manual) 74, Lymphocytes % (Manual) 14L, Monocytes % (Manual) 6, Eosinophils % ( Manual) 0, Basophils % (Manual) 0, Metamyelocytes % 2H, Band Neutrophils 4, Platelet Estimate Adequate, Platelet Morphology Normal, Sodium Level 141, Potassium Level 4.1, Chloride Level 101, Carbon Dioxide Level 30, Anion Gap 10, Blood Urea Nitrogen 71H, Creatinine 5.0H, Estimat Glomerular Filtration Rate , Glucose Level 151H, Calcium Level 8.6, Phosphorus Level 4.4, Magnesium Level 2.2 , Total Bilirubin 0.5, Aspartate Amino Transf (AST/SGOT) 18, Alanine Aminotransferase (ALT/SGPT) 34, Alkaline Phosphatase 131H, C-Reactive Protein, Quantitative < 0.4, Pro-B-Type Natriuretic Peptide 694H, Total Protein 6.9, Albumin 2.8L, Globulin 4.1, Albumin/Globulin Ratio 0.7L Current Medications Medications (Trade) Dose Ordered Sig/Jessica Route PRN Reason Start Time Stop Time Status Last Admin Dose Admin Acetaminophen (Tylenol) 650 mg Q6H PRN ORAL Mild Pain/Temp > 100.5 09/17/17 02:15 10/17/17 02:14 Acetaminophen/ Hydrocodone Bitart ([place] 5/325) 1 tab Q6H PRN ORAL Severe Pain (Pain Scale 4-10) 09/23/17 14:15 09/30/17 14:14 Albuterol/ Ipratropium (Albuterol/ Ipratropium) 3 ml Q4H PRN HHN Shortness of Breath 09/23/17 13:30 09/28/17 13:29 Albuterol/ Ipratropium (Albuterol/ Ipratropium) 3 ml TIDRT HHN 09/22/17 19:00 09/27/17 18:59 09/27/17 13:51 Artificial Tears (Akwa-Tears) 2 drop Q2H PRN BOTH EYES Dry Eyes 09/18/17 12:15 10/18/17 12:14 09/20/17 08:47 Aspirin (ASA) 81 mg DAILY ORAL 09/17/17 09:00 10/17/17 08:59 09/27/17 09:56 Benzonatate (Tessalon Perles) 100 mg THREE TIMES A DAY PRN ORAL For Cough 09/18/17 06:45 10/18/17 06:44 09/27/17 09:55 Bupropion HCl (Wellbutrin XL) 150 mg DAILY ORAL 09/17/17 18:00 10/17/17 17:59 09/27/17 09:56 Docusate Sodium (Colace) 100 mg THREE TIMES A DAY ORAL 09/18/17 18:00 10/18/17 17:59 09/27/17 09:55 Dorzolamide/ Timolol (Cosopt) 1 drop BID BOTH EYES 09/18/17 09:00 10/18/17 08:59 09/27/17 10:03 Epoetin Jerod (Procrit (for ESRD on dialysis)) 10,000 units MON-MON-MON SUBQ 09/18/17 21:00 10/18/17 20:59 09/25/17 20:33 Famotidine (Pepcid) 20 mg DAILY ORAL 09/18/17 09:00 10/18/17 08:59 09/27/17 09:56 Heparin Sodium (Porcine) (Heparin 5000 units/ml) 5,000 units EVERY 8 HOURS SUBQ 09/17/17 14:00 10/17/17 13:59 09/26/17 20:16 Mirtazapine (Remeron) 15 mg BEDTIME ORAL 09/17/17 21:00 10/17/17 20:59 09/26/17 20:14 Ondansetron HCl (Zofran) 4 mg Q4H PRN IVP Nausea & Vomiting 09/17/17 02:15 10/17/17 02:14 Sevelamer Carbonate (Renvela) 800 mg THREE TIMES A DAY ORAL 09/18/17 18:00 10/18/17 17:59 09/27/17 12:28 Tamsulosin HCl (Flomax) 0.4 mg BID ORAL 09/18/17 09:00 10/18/17 08:59 09/27/17 09:56 PENNIE CHAMBERLAIN Sep 27, 2017 17:08
[2017-09-27] MEDS: Epogen (for ESRD on dialysis) SUBQ SCH (22:15)
[2017-09-28] VITALS: BP 126/68
[2017-09-28 04:29] VITALS: BP 128/69
[2017-09-28] MEDS: Heparin 5000 units/ml inj SUBQ SCH ×3 (05:57→21:09)
[2017-09-28 07:38] LABS: HEMATOCRIT 28.8 % (42.0-52.0); HEMOGLOBIN 9.3 G/DL (14.2-18.0); MEAN CORPUSCULAR VOLUME 101 FL (80-99); PLATELET COUNT 238 K/UL (150-450); RED BLOOD COUNT 2.84 M/UL (4.70-6.10); RED CELL DISTRIBUTION WIDTH 16.8 % (11.6-14.8); WHITE BLOOD COUNT 18.5 K/UL (4.8-10.8)
[2017-09-28 08:15] VITALS: BP 129/63
[2017-09-28] MEDS: BuPROPion XL 150mg tab ORAL SCH (09:42)
[2017-09-28] MEDS: Tamsulosin 0.4mg cap ORAL SCH ×2 (09:42→18:19)
[2017-09-28] MEDS: Aspirin Baby 81mg ORAL SCH (09:42)
[2017-09-28] MEDS: Docusate 100mg cap ORAL SCH ×3 (09:42→18:19)
[2017-09-28] MEDS: Cosopt Opth Soln 10 mL Btl BOTH EYES SCH ×2 (09:45→18:19)
--- NOTE | 2017-09-28 11:39 | Nephrology Progress Note ---
Assessment/Plan Problem List: (1) ESRD (end stage renal disease) on dialysis (2) HTN (hypertension) (3) Pneumonia (4) Depression Assessment status: - End-stage renal disease, on hemodialysis. - Left lower lobe pneumonia. - Leukocytosis. persists - Hypertension. - Depression. Plan Plan; HD 09/27 next 07/30 Adjust BP meds continue per consultants taper steroids as possible FU with CS MDs Subjective ROS Limited/Unobtainable: No Constitutional: Reports: malaise Objective Objective Last 24 Hour Vital Signs Date Time Temp Pulse Resp B/P (MAP) Pulse Ox O2 Delivery O2 Flow Rate FiO2 09/28/17 08:15 97.3 85 22 129/63 97 Room Air 09/28/17 07:12 71 20 Room Air 21 09/28/17 04:29 98.2 80 19 128/69 94 09/28/17 00:00 98.1 67 19 126/68 93 09/27/17 20:36 97.5 56 18 129/69 94 09/27/17 20:29 66 20 Room Air 21 09/27/17 17:02 Room Air 09/27/17 17:01 96.8 67 24 145/70 Room Air 09/27/17 16:00 96.8 67 24 145/70 97 09/27/17 14:00 68 18 99 Room Air 09/27/17 13:54 58 18 99 Room Air 09/27/17 12:30 96.6 61 28 135/70 Room Air 09/27/17 12:30 Room Air 09/27/17 11:58 98.7 58 22 132/68 99 Room Air Intake and Output 09/27/17 09/28/17 19:00 07:00 Intake Total 1520 ml 480 ml Output Total 1300 ml 300 ml Balance 220 ml 180 ml Intake Oral 1520 ml 480 ml Output Urine Total 300 ml 300 ml Hemodialysis UF 1000 ml # Voids 2 2 # Bowel Movements 2 Laboratory Tests 09/28/17 06:50: White Blood Count 18.5H, Red Blood Count 2.84L, Hemoglobin 9.3L, Hematocrit 28.8L, Mean Corpuscular Volume 101H, Mean Corpuscular Hemoglobin 32.8H, Mean Corpuscular Hemoglobin Concent 32.4, Red Cell Distribution Width 16.8H, Platelet Count 238, Mean Platelet Volume 8.1, Neutrophils (%) (Auto) , Lymphocytes (%) (Auto) , Monocytes (%) (Auto) , Eosinophils (%) (Auto) , Basophils (%) (Auto) , Differential Total Cells Counted 100, Neutrophils % ( Manual) 79H, Lymphocytes % (Manual) 8L, Monocytes % (Manual) 12H, Eosinophils % (Manual) 1, Basophils % (Manual) 0, Band Neutrophils 0, Platelet Estimate Adequate, Platelet Morphology Normal, Hypochromasia 1+, Anisocytosis 1+, Macrocytosis 1+ Height (Feet): 5 Height (Inches): 11.00 Weight (Pounds): 201 General Appearance: no apparent distress Objective no change ROMEL RAJAN Sep 28, 2017 11:39
[2017-09-28 11:55] VITALS: BP 108/65
[2017-09-28 16:04] VITALS: BP 134/69
--- NOTE | 2017-09-28 17:05 | Infectious Diseases Prog Note ---
Assessment/Plan Assessment/Plan LLL Pna (seen in OSH CXR), however CXR here neg -CXR 09/22 No acute process -CXR: No radiographic evidence of acute cardiopulmonary disease. -influenza neg -sp cx normal ian Leukocytosis, worsening after steroids but was still elevated prior to initiation of steroids; now improving 09/28- ?etiology- no clear source- possibly exacerbated by recent steroids administration. All cx neg, CRP now normal - r/o portacath infection. +Constipated, doubt Cdiff- No obvious signs of infection and patient clinically stable and s/p empiric abx course -CT chest/abd/p w/: No acute findings appreciated within the chest abdomen or pelvis. No source of the infection identified. 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 Diverticulosis of the colon. No definite evidence of diverticulitis. Spondylosis. Multiple bilateral renal cysts. Small hiatal hernia.Evidence of previous prostate surgery -Abd US: Chronic renal disease/insufficiency with multiple cysts. Suspicion of a mid abdominal fusiform aneurysm measuring about 3 cm -afebrile -u/a neg; Ucx Neg -Bcx Neg -Echo: limited study- no obvious vegetations or significant valve abnormalities Constipation -KUB: Mild amount of retained feces in the ascending and transverse colon, nonspecific. HTN MDD recent ESRD started on HD on Mid Aug 2017 (at [facility]) s/p perma cath R upper chest Plan: -Continue to monitor off abx unless febrile, HD unstable -f/u BCx from R porth cath, cdiff -Patient is clinically stable without obvious source of infection and anxious to go back to Rehab. Given stability ok to discharge back to Rehab facility and have patient repeat CBC in 1 week with PCP f/u in 1 week and strict return precautions --If WBC elevation persists, may need tagged WBC scan; howeer WBC now decreasing -09/23 SP Cefepime #7 -09/21 SP Azithromycin #5 -f/u cx -Monitor CBC/BMP, temperatures; -aspiration precautions Discussed with RN Subjective Allergies: Coded Allergies: CIPROFLOXACIN (Verified Allergy, Unknown, 09/17/17) PENICILLINS (Verified Allergy, Unknown, 09/20/17) tolareted Cefepime Sep 2017 Subjective afebrile leukocytosis improving no complains Clinically stable and improved all cx NTD Objective Vital Signs Last 24 Hour Vital Signs Date Time Temp Pulse Resp B/P (MAP) Pulse Ox O2 Delivery O2 Flow Rate FiO2 09/28/17 16:04 97.7 64 21 134/69 97 Room Air 09/28/17 11:55 97.4 60 21 108/65 99 Room Air 09/28/17 08:15 97.3 85 22 129/63 97 Room Air 09/28/17 07:12 71 20 Room Air 21 09/28/17 04:29 98.2 80 19 128/69 94 09/28/17 00:00 98.1 67 19 126/68 93 09/27/17 20:36 97.5 56 18 129/69 94 09/27/17 20:29 66 20 Room Air 21 Height (Feet): 5 Height (Inches): 11.00 Weight (Pounds): 201 Objective GENERAL: The patient is a well-developed, well-nourished, white male, in no apparent distress. HEENT: Eyes, pupils are equal and responsive to light and accommodation. Extraocular movements are intact. NECK: Supple without lymphadenopathy. CHEST: CTA x2 CARDIOVASCULAR: Regular rhythm and rate. S1 and S2 are normal without murmurs, rubs, or gallops. ABDOMEN: Soft, nontender, and nondistended. Positive bowel sounds. No evidence of hepatosplenomegaly. Currently, no rebound or guarding noted. EXTREMITIES: Negative for clubbing, cyanosis, or edema. R chest ruslan cath ihn place , no signs of infection NEUROLOGIC: Cranial nerves II through XII are grossly intact without focal deficits. Motor strength is 5/5 bilaterally. Deep tendon reflexes are 2+ plantar. Laboratory Tests Test 09/28/17 06:50 White Blood Count 18.5 K/UL (4.8-10.8) H Red Blood Count 2.84 M/UL (4.70-6.10) L Hemoglobin 9.3 G/DL (14.2-18.0) L Hematocrit 28.8 % (42.0-52.0) L Mean Corpuscular Volume 101 FL (80-99) H Mean Corpuscular Hemoglobin 32.8 PG (27.0-31.0) H Mean Corpuscular Hemoglobin Concent 32.4 G/DL (32.0-36.0) Red Cell Distribution Width 16.8 % (11.6-14.8) H Platelet Count 238 K/UL (150-450) Mean Platelet Volume 8.1 FL (6.5-10.1) Neutrophils (%) (Auto) % (45.0-75.0) Lymphocytes (%) (Auto) % (20.0-45.0) Monocytes (%) (Auto) % (1.0-10.0) Eosinophils (%) (Auto) % (0.0-3.0) Basophils (%) (Auto) % (0.0-2.0) Differential Total Cells Counted 100 Neutrophils % (Manual) 79 % (45-75) H Lymphocytes % (Manual) 8 % (20-45) L Monocytes % (Manual) 12 % (1-10) H Eosinophils % (Manual) 1 % (0-3) Basophils % (Manual) 0 % (0-2) Band Neutrophils 0 % (0-8) Platelet Estimate Adequate Platelet Morphology Normal Hypochromasia 1+ Anisocytosis 1+ Macrocytosis 1+ Current Medications Medications (Trade) Dose Ordered Sig/Jessica Route PRN Reason Start Time Stop Time Status Last Admin Dose Admin Acetaminophen (Tylenol) 650 mg Q6H PRN ORAL Mild Pain/Temp > 100.5 09/17/17 02:15 10/17/17 02:14 Acetaminophen/ Hydrocodone Bitart ([place] 5/325) 1 tab Q6H PRN ORAL Severe Pain (Pain Scale 4-10) 09/23/17 14:15 09/30/17 14:14 Artificial Tears (Akwa-Tears) 2 drop Q2H PRN BOTH EYES Dry Eyes 09/18/17 12:15 10/18/17 12:14 09/20/17 08:47 Aspirin (ASA) 81 mg DAILY ORAL 09/17/17 09:00 10/17/17 08:59 09/28/17 09:42 Benzonatate (Tessalon Perles) 100 mg THREE TIMES A DAY PRN ORAL For Cough 09/18/17 06:45 10/18/17 06:44 09/27/17 09:55 Bupropion HCl (Wellbutrin XL) 150 mg DAILY ORAL 09/17/17 18:00 10/17/17 17:59 09/28/17 09:42 Docusate Sodium (Colace) 100 mg THREE TIMES A DAY ORAL 09/18/17 18:00 10/18/17 17:59 09/28/17 09:42 Dorzolamide/ Timolol (Cosopt) 1 drop BID BOTH EYES 09/18/17 09:00 10/18/17 08:59 09/28/17 09:45 Epoetin Jerod (Procrit (for ESRD on dialysis)) 10,000 units MON-MON-MON SUBQ 09/18/17 21:00 10/18/17 20:59 09/27/17 22:15 Famotidine (Pepcid) 20 mg DAILY ORAL 09/18/17 09:00 10/18/17 08:59 09/28/17 09:42 Heparin Sodium (Porcine) (Heparin 5000 units/ml) 5,000 units EVERY 8 HOURS SUBQ 09/17/17 14:00 10/17/17 13:59 09/28/17 05:57 Mirtazapine (Remeron) 15 mg BEDTIME ORAL 09/17/17 21:00 10/17/17 20:59 09/27/17 22:14 Ondansetron HCl (Zofran) 4 mg Q4H PRN IVP Nausea & Vomiting 09/17/17 02:15 10/17/17 02:14 Sevelamer Carbonate (Renvela) 800 mg THREE TIMES A DAY ORAL 09/18/17 18:00 10/18/17 17:59 09/28/17 13:15 Tamsulosin HCl (Flomax) 0.4 mg BID ORAL 09/18/17 09:00 10/18/17 08:59 09/28/17 09:42 Griselda Mazariegos M.D. Sep 28, 2017 17:05
--- NOTE | 2017-09-28 19:35 | Internal Med Progress Note ---
Subjective Date of Service: Sep 28, 2017 Physician Name Karma Guillen Attending Physician Dung Mustafa MD Current Medications Medications (Trade) Dose Ordered Sig/Jessica Route PRN Reason Start Time Stop Time Status Last Admin Dose Admin Acetaminophen (Tylenol) 650 mg Q6H PRN ORAL Mild Pain/Temp > 100.5 09/17/17 02:15 10/17/17 02:14 Acetaminophen/ Hydrocodone Bitart ([place] 5/325) 1 tab Q6H PRN ORAL Severe Pain (Pain Scale 4-10) 09/23/17 14:15 09/30/17 14:14 Artificial Tears (Akwa-Tears) 2 drop Q2H PRN BOTH EYES Dry Eyes 09/18/17 12:15 10/18/17 12:14 09/20/17 08:47 Aspirin (ASA) 81 mg DAILY ORAL 09/17/17 09:00 10/17/17 08:59 09/28/17 09:42 Benzonatate (Tessalon Perles) 100 mg THREE TIMES A DAY PRN ORAL For Cough 09/18/17 06:45 10/18/17 06:44 09/27/17 09:55 Bupropion HCl (Wellbutrin XL) 150 mg DAILY ORAL 09/17/17 18:00 10/17/17 17:59 09/28/17 09:42 Docusate Sodium (Colace) 100 mg THREE TIMES A DAY ORAL 09/18/17 18:00 10/18/17 17:59 09/28/17 18:19 Dorzolamide/ Timolol (Cosopt) 1 drop BID BOTH EYES 09/18/17 09:00 10/18/17 08:59 09/28/17 18:19 Epoetin Jerod (Procrit (for ESRD on dialysis)) 10,000 units MON-WED-MON SUBQ 09/18/17 21:00 10/18/17 20:59 09/27/17 22:15 Famotidine (Pepcid) 20 mg DAILY ORAL 09/18/17 09:00 10/18/17 08:59 09/28/17 09:42 Heparin Sodium (Porcine) (Heparin 5000 units/ml) 5,000 units EVERY 8 HOURS SUBQ 09/17/17 14:00 10/17/17 13:59 09/28/17 05:57 Mirtazapine (Remeron) 15 mg BEDTIME ORAL 09/17/17 21:00 10/17/17 20:59 09/27/17 22:14 Ondansetron HCl (Zofran) 4 mg Q4H PRN IVP Nausea & Vomiting 09/17/17 02:15 10/17/17 02:14 Sevelamer Carbonate (Renvela) 800 mg THREE TIMES A DAY ORAL 09/18/17 18:00 10/18/17 17:59 09/28/17 18:19 Tamsulosin HCl (Flomax) 0.4 mg BID ORAL 09/18/17 09:00 10/18/17 08:59 09/28/17 18:19 Allergies: Coded Allergies: CIPROFLOXACIN (Verified Allergy, Unknown, 09/17/17) PENICILLINS (Verified Allergy, Unknown, 09/20/17) tolareted Cefepime Sep 2017 ROS Limited/Unobtainable: No Constitutional: Reports: no symptoms HEENT: Reports: no symptoms Cardiovascular: Reports: no symptoms Respiratory: Reports: no symptoms Gastrointestinal/Abdominal: Reports: no symptoms Genitourinary: Reports: no symptoms Neurologic/Psychiatric: Reports: no symptoms Subjective 81 YO M with shortness of breath. Now pneumonia. Cover for Int Med-Dr Mustafa. Discharge held to [facility] [place]-see discharge planning note Objective Last Vital Signs Date Time Temp Pulse Resp B/P (MAP) Pulse Ox O2 Delivery O2 Flow Rate FiO2 09/28/17 16:05 Room Air 09/28/17 16:04 97.7 64 21 134/69 97 09/28/17 07:12 21 09/23/17 19:28 2.0 Laboratory Tests Test 09/28/17 06:50 White Blood Count 18.5 K/UL (4.8-10.8) H Red Blood Count 2.84 M/UL (4.70-6.10) L Hemoglobin 9.3 G/DL (14.2-18.0) L Hematocrit 28.8 % (42.0-52.0) L Mean Corpuscular Volume 101 FL (80-99) H Mean Corpuscular Hemoglobin 32.8 PG (27.0-31.0) H Mean Corpuscular Hemoglobin Concent 32.4 G/DL (32.0-36.0) Red Cell Distribution Width 16.8 % (11.6-14.8) H Platelet Count 238 K/UL (150-450) Mean Platelet Volume 8.1 FL (6.5-10.1) Neutrophils (%) (Auto) % (45.0-75.0) Lymphocytes (%) (Auto) % (20.0-45.0) Monocytes (%) (Auto) % (1.0-10.0) Eosinophils (%) (Auto) % (0.0-3.0) Basophils (%) (Auto) % (0.0-2.0) Differential Total Cells Counted 100 Neutrophils % (Manual) 79 % (45-75) H Lymphocytes % (Manual) 8 % (20-45) L Monocytes % (Manual) 12 % (1-10) H Eosinophils % (Manual) 1 % (0-3) Basophils % (Manual) 0 % (0-2) Band Neutrophils 0 % (0-8) Platelet Estimate Adequate Platelet Morphology Normal Hypochromasia 1+ Anisocytosis 1+ Macrocytosis 1+ Intake and Output 09/27/17 09/28/17 19:00 07:00 Intake Total 1520 ml 480 ml Output Total 1300 ml 300 ml Balance 220 ml 180 ml Intake Oral 1520 ml 480 ml Output Urine Total 300 ml 300 ml Hemodialysis UF 1000 ml # Voids 2 2 # Bowel Movements 2 Objective General Appearance: WD/WN, no apparent distress, alert, mild distress EENT: PERRL/EOMI, normal ENT inspection, TMs normal Neck: non-tender, normal alignment, supple, normal inspection Cardiovascular: normal peripheral pulses, normal rate, regular rhythm, no gallop/murmur, no JVD Respiratory/Chest: chest wall non-tender, no respiratory distress, no accessory muscle use, crackles/rales, rhonchi - bilaterally, expiratory wheezing Abdomen: normal bowel sounds, non tender, soft, no organomegaly, no mass Extremities: normal range of motion 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 Continue albuterol nebs and IV solumedrol (2) ESRD (end stage renal disease) on dialysis (3) Leukocytosis Assessment & Plan: Worsening on steroids cont abx per ID (4) HTN (hypertension) (5) Depression Assessment & Plan: Continue mirtazipime (6) Pneumonia Assessment & Plan: Continue cefepime-see ID note. Status: stable Assessment/Plan D/C plan: [facility] [place] when dialysis arranged. KARMA GUILLEN Sep 28, 2017 19:35
[2017-09-28 20:00] VITALS: BP 132/77
[2017-09-29] VITALS: BP 130/71
[2017-09-29 04:00] VITALS: BP 159/80
[2017-09-29] MEDS: Heparin 5000 units/ml inj SUBQ SCH ×3 (06:00→21:51)
[2017-09-29 07:46] LABS: ANION GAP 6 mmol/L (5-15); BLOOD UREA NITROGEN 72 mg/dL (7-18); CALCIUM 8.6 MG/DL (8.5-10.1); CARBON DIOXIDE 31 MMOL/L (21-32); CHLORIDE 104 MMOL/L (98-107); CREATININE 4.8 MG/DL (0.55-1.30); POTASSIUM 3.7 MMOL/L (3.5-5.1); SODIUM 141 MMOL/L (136-145)
[2017-09-29 07:50] LABS: HEMATOCRIT 28.4 % (42.0-52.0); HEMOGLOBIN 9.6 G/DL (14.2-18.0); MEAN CORPUSCULAR VOLUME 103 FL (80-99); PLATELET COUNT 200 K/UL (150-450); RED BLOOD COUNT 2.77 M/UL (4.70-6.10); RED CELL DISTRIBUTION WIDTH 17.3 % (11.6-14.8); WHITE BLOOD COUNT 18.9 K/UL (4.8-10.8)
[2017-09-29 08:00] VITALS: BP 146/75
[2017-09-29] MEDS: Docusate 100mg cap ORAL SCH ×3 (08:30→17:00)
[2017-09-29] MEDS: Aspirin Baby 81mg ORAL SCH (08:30)
[2017-09-29] MEDS: BuPROPion XL 150mg tab ORAL SCH (08:31)
[2017-09-29] MEDS: Tamsulosin 0.4mg cap ORAL SCH ×2 (08:31→17:52)
[2017-09-29] MEDS: Cosopt Opth Soln 10 mL Btl BOTH EYES SCH ×2 (08:34→17:52)
[2017-09-29 12:00] VITALS: BP 155/81
--- NOTE | 2017-09-29 15:58 | Nephrology Progress Note ---
Assessment/Plan Problem List: (1) ESRD (end stage renal disease) on dialysis (2) HTN (hypertension) (3) Pneumonia (4) Depression Assessment status: - End-stage renal disease, on hemodialysis. - Left lower lobe pneumonia. - Leukocytosis. persists - Hypertension. - Depression. Plan Plan; HD 07/30 Adjust BP meds continue per consultants taper steroids as possible FU with CS MDs ? DC planning Subjective ROS Limited/Unobtainable: No Constitutional: Reports: malaise Objective Objective Last 24 Hour Vital Signs Date Time Temp Pulse Resp B/P (MAP) Pulse Ox O2 Delivery O2 Flow Rate FiO2 09/29/17 13:40 Room Air 2.0 21 09/29/17 12:00 97.7 65 18 155/81 97 Room Air 09/29/17 08:00 97.5 69 18 146/75 98 Room Air 09/29/17 07:15 64 18 Room Air 21 09/29/17 04:00 97.2 62 20 159/80 96 Room Air 09/29/17 00:00 97.6 65 18 130/71 100 09/28/17 20:00 97.4 64 19 132/77 100 Room Air 09/28/17 19:35 68 18 Room Air 21 09/28/17 16:05 Room Air 09/28/17 16:04 97.7 64 21 134/69 97 Room Air Intake and Output 09/28/17 09/29/17 19:00 07:00 Intake Total 720 ml 120 ml Output Total 400 ml 200 ml Balance 320 ml -80 ml Intake Oral 720 ml 120 ml Output Urine Total 400 ml 200 ml # Voids 2 # Bowel Movements 1 Current Medications Medications (Trade) Dose Ordered Sig/Jessica Route PRN Reason Start Time Stop Time Status Last Admin Dose Admin Acetaminophen (Tylenol) 650 mg Q6H PRN ORAL Mild Pain/Temp > 100.5 09/17/17 02:15 10/17/17 02:14 Acetaminophen/ Hydrocodone Bitart ([place] 5/325) 1 tab Q6H PRN ORAL Severe Pain (Pain Scale 4-10) 09/23/17 14:15 09/30/17 14:14 Artificial Tears (Akwa-Tears) 2 drop Q2H PRN BOTH EYES Dry Eyes 09/18/17 12:15 10/18/17 12:14 09/20/17 08:47 Aspirin (ASA) 81 mg DAILY ORAL 09/17/17 09:00 10/17/17 08:59 09/29/17 08:30 Benzonatate (Tessalon Perles) 100 mg THREE TIMES A DAY PRN ORAL For Cough 09/18/17 06:45 10/18/17 06:44 09/27/17 09:55 Bupropion HCl (Wellbutrin XL) 150 mg DAILY ORAL 09/17/17 18:00 10/17/17 17:59 09/29/17 08:31 Docusate Sodium (Colace) 100 mg THREE TIMES A DAY ORAL 09/18/17 18:00 10/18/17 17:59 09/28/17 18:19 Dorzolamide/ Timolol (Cosopt) 1 drop BID BOTH EYES 09/18/17 09:00 10/18/17 08:59 09/29/17 08:34 Epoetin Jerod (Procrit (for ESRD on dialysis)) 10,000 units MON-MON-MON SUBQ 09/18/17 21:00 10/18/17 20:59 09/27/17 22:15 Famotidine (Pepcid) 20 mg DAILY ORAL 09/18/17 09:00 10/18/17 08:59 09/29/17 08:31 Heparin Sodium (Porcine) (Heparin 5000 units/ml) 5,000 units EVERY 8 HOURS SUBQ 09/17/17 14:00 10/17/17 13:59 09/28/17 05:57 Mirtazapine (Remeron) 15 mg BEDTIME ORAL 09/17/17 21:00 10/17/17 20:59 09/28/17 21:06 Ondansetron HCl (Zofran) 4 mg Q4H PRN IVP Nausea & Vomiting 09/17/17 02:15 10/17/17 02:14 Sevelamer Carbonate (Renvela) 800 mg THREE TIMES A DAY ORAL 09/18/17 18:00 10/18/17 17:59 09/29/17 12:36 Tamsulosin HCl (Flomax) 0.4 mg BID ORAL 09/18/17 09:00 10/18/17 08:59 09/29/17 08:31 Laboratory Tests 09/29/17 05:25: White Blood Count 18.9H, Red Blood Count 2.77L, Hemoglobin 9.6L, Hematocrit 28.4L, Mean Corpuscular Volume 103H, Mean Corpuscular Hemoglobin 34.8H, Mean Corpuscular Hemoglobin Concent 33.9, Red Cell Distribution Width 17.3H, Platelet Count 200, Mean Platelet Volume 7.9, Neutrophils (%) (Auto) , Lymphocytes (%) (Auto) , Monocytes (%) (Auto) , Eosinophils (%) (Auto) , Basophils (%) (Auto) , Differential Total Cells Counted 100, Neutrophils % ( Manual) 76H, Lymphocytes % (Manual) 13L, Monocytes % (Manual) 9, Eosinophils % ( Manual) 1, Basophils % (Manual) 1, Band Neutrophils 0, Platelet Estimate Adequate, Platelet Morphology Normal, Polychromasia 1+, Hypochromasia 2+, Anisocytosis 1+, Macrocytosis 1+, Sodium Level 141, Potassium Level 3.7, Chloride Level 104, Carbon Dioxide Level 31, Anion Gap 6, Blood Urea Nitrogen 72H, Creatinine 4.8H, Estimat Glomerular Filtration Rate , Glucose Level 87, Calcium Level 8.6 Height (Feet): 5 Height (Inches): 11.00 Weight (Pounds): 201 Cardiovascular: normal rate Respiratory/Chest: lungs clear, decreased breath sounds Abdomen: soft Objective no change ROMEL RAJAN Sep 29, 2017 15:58
[2017-09-29 16:00] VITALS: BP 135/70
--- NOTE | 2017-09-29 16:42 | Infectious Diseases Prog Note ---
Assessment/Plan Assessment/Plan LLL Pna (seen in OSH CXR), however CXR here neg -CXR 09/22 No acute process -CXR: No radiographic evidence of acute cardiopulmonary disease. -influenza neg -sp cx normal ian Leukocytosis, worsening after steroids but was still elevated prior to initiation of steroids; now improving 09/28- ?etiology- no clear source- possibly exacerbated by recent steroids administration. All cx neg, CRP now normal - r/o portacath infection. +Constipated, doubt Cdiff- No obvious signs of infection and patient clinically stable and s/p empiric abx course -CT chest/abd/p w/: No acute findings appreciated within the chest abdomen or pelvis. No source of the infection identified. 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 Diverticulosis of the colon. No definite evidence of diverticulitis. Spondylosis. Multiple bilateral renal cysts. Small hiatal hernia.Evidence of previous prostate surgery -Abd US: Chronic renal disease/insufficiency with multiple cysts. Suspicion of a mid abdominal fusiform aneurysm measuring about 3 cm -afebrile -u/a neg; Ucx Neg -Bcx Neg -Echo: limited study- no obvious vegetations or significant valve abnormalities Constipation -KUB: Mild amount of retained feces in the ascending and transverse colon, nonspecific. HTN MDD recent ESRD started on HD on Mid Aug 2017 (at [facility]) s/p perma cath R upper chest Plan: -Continue to monitor off abx unless febrile, HD unstable -f/u BCx from R porth cath, cdiff -Patient is clinically stable without obvious source of infection and anxious to go back to Rehab. Given stability ok to discharge back to Rehab facility and have patient repeat CBC in 1 week with PCP f/u in 1 week and strict return precautions --If WBC elevation persists, may need tagged WBC scan; however WBC now decreasing -09/23 SP Cefepime #7 -09/21 SP Azithromycin #5 -f/u cx -Monitor CBC/BMP, temperatures; -aspiration precautions Discussed with RN Subjective Allergies: Coded Allergies: CIPROFLOXACIN (Verified Allergy, Unknown, 09/17/17) PENICILLINS (Verified Allergy, Unknown, 09/20/17) tolareted Cefepime Sep 2017 Subjective afebrile leukocytosis stable but improved no complains Clinically stable and improved all cx NTD Objective Vital Signs Last 24 Hour Vital Signs Date Time Temp Pulse Resp B/P (MAP) Pulse Ox O2 Delivery O2 Flow Rate FiO2 09/29/17 13:40 Room Air 2.0 21 09/29/17 12:00 97.7 65 18 155/81 97 Room Air 09/29/17 08:00 97.5 69 18 146/75 98 Room Air 09/29/17 07:15 64 18 Room Air 21 09/29/17 04:00 97.2 62 20 159/80 96 Room Air 09/29/17 00:00 97.6 65 18 130/71 100 09/28/17 20:00 97.4 64 19 132/77 100 Room Air 09/28/17 19:35 68 18 Room Air 21 Height (Feet): 5 Height (Inches): 11.00 Weight (Pounds): 201 Objective GENERAL: The patient is a well-developed, well-nourished, white male, in no apparent distress. HEENT: Eyes, pupils are equal and responsive to light and accommodation. Extraocular movements are intact. NECK: Supple without lymphadenopathy. CHEST: CTA x2 CARDIOVASCULAR: Regular rhythm and rate. S1 and S2 are normal without murmurs, rubs, or gallops. ABDOMEN: Soft, nontender, and nondistended. Positive bowel sounds. No evidence of hepatosplenomegaly. Currently, no rebound or guarding noted. EXTREMITIES: Negative for clubbing, cyanosis, or edema. R chest ruslan cath ihn place , no signs of infection NEUROLOGIC: Cranial nerves II through XII are grossly intact without focal deficits. Motor strength is 5/5 bilaterally. Deep tendon reflexes are 2+ plantar. Laboratory Tests Test 09/29/17 05:25 White Blood Count 18.9 K/UL (4.8-10.8) H Red Blood Count 2.77 M/UL (4.70-6.10) L Hemoglobin 9.6 G/DL (14.2-18.0) L Hematocrit 28.4 % (42.0-52.0) L Mean Corpuscular Volume 103 FL (80-99) H Mean Corpuscular Hemoglobin 34.8 PG (27.0-31.0) H Mean Corpuscular Hemoglobin Concent 33.9 G/DL (32.0-36.0) Red Cell Distribution Width 17.3 % (11.6-14.8) H Platelet Count 200 K/UL (150-450) Mean Platelet Volume 7.9 FL (6.5-10.1) Neutrophils (%) (Auto) % (45.0-75.0) Lymphocytes (%) (Auto) % (20.0-45.0) Monocytes (%) (Auto) % (1.0-10.0) Eosinophils (%) (Auto) % (0.0-3.0) Basophils (%) (Auto) % (0.0-2.0) Differential Total Cells Counted 100 Neutrophils % (Manual) 76 % (45-75) H Lymphocytes % (Manual) 13 % (20-45) L Monocytes % (Manual) 9 % (1-10) Eosinophils % (Manual) 1 % (0-3) Basophils % (Manual) 1 % (0-2) Band Neutrophils 0 % (0-8) Platelet Estimate Adequate Platelet Morphology Normal Polychromasia 1+ Hypochromasia 2+ Anisocytosis 1+ Macrocytosis 1+ Sodium Level 141 MMOL/L (136-145) Potassium Level 3.7 MMOL/L (3.5-5.1) Chloride Level 104 MMOL/L (98-107) Carbon Dioxide Level 31 MMOL/L (21-32) Anion Gap 6 mmol/L (5-15) Blood Urea Nitrogen 72 mg/dL (7-18) H Creatinine 4.8 MG/DL (0.55-1.30) H Estimat Glomerular Filtration Rate mL/min (>60) Glucose Level 87 MG/DL (74-106) Calcium Level 8.6 MG/DL (8.5-10.1) Current Medications Medications (Trade) Dose Ordered Sig/Jessica Route PRN Reason Start Time Stop Time Status Last Admin Dose Admin Acetaminophen (Tylenol) 650 mg Q6H PRN ORAL Mild Pain/Temp > 100.5 09/17/17 02:15 10/17/17 02:14 Acetaminophen/ Hydrocodone Bitart ([place] 5/325) 1 tab Q6H PRN ORAL Severe Pain (Pain Scale 4-10) 09/23/17 14:15 09/30/17 14:14 Artificial Tears (Akwa-Tears) 2 drop Q2H PRN BOTH EYES Dry Eyes 09/18/17 12:15 10/18/17 12:14 09/20/17 08:47 Aspirin (ASA) 81 mg DAILY ORAL 09/17/17 09:00 10/17/17 08:59 09/29/17 08:30 Benzonatate (Tessalon Perles) 100 mg THREE TIMES A DAY PRN ORAL For Cough 09/18/17 06:45 10/18/17 06:44 09/27/17 09:55 Bupropion HCl (Wellbutrin XL) 150 mg DAILY ORAL 09/17/17 18:00 10/17/17 17:59 09/29/17 08:31 Docusate Sodium (Colace) 100 mg THREE TIMES A DAY ORAL 09/18/17 18:00 10/18/17 17:59 09/28/17 18:19 Dorzolamide/ Timolol (Cosopt) 1 drop BID BOTH EYES 09/18/17 09:00 10/18/17 08:59 09/29/17 08:34 Epoetin Jerod (Procrit (for ESRD on dialysis)) 10,000 units MON-MON-MON SUBQ 09/18/17 21:00 10/18/17 20:59 09/27/17 22:15 Famotidine (Pepcid) 20 mg DAILY ORAL 09/18/17 09:00 10/18/17 08:59 09/29/17 08:31 Heparin Sodium (Porcine) (Heparin 5000 units/ml) 5,000 units EVERY 8 HOURS SUBQ 09/17/17 14:00 10/17/17 13:59 09/28/17 05:57 Mirtazapine (Remeron) 15 mg BEDTIME ORAL 09/17/17 21:00 10/17/17 20:59 09/28/17 21:06 Ondansetron HCl (Zofran) 4 mg Q4H PRN IVP Nausea & Vomiting 09/17/17 02:15 10/17/17 02:14 Sevelamer Carbonate (Renvela) 800 mg THREE TIMES A DAY ORAL 09/18/17 18:00 10/18/17 17:59 09/29/17 12:36 Tamsulosin HCl (Flomax) 0.4 mg BID ORAL 09/18/17 09:00 10/18/17 08:59 09/29/17 08:31 Griselda Mazariegos M.D. Sep 29, 2017 16:42
--- NOTE | 2017-09-29 17:14 | Pulmonology Progress Note ---
Assessment/Plan Problems: (1) Pneumonia (2) ESRD (end stage renal disease) on dialysis (3) HTN (hypertension) (4) Depression (5) Prostate cancer Assessment/Plan improving, doing better no new complains check cultures HD by nephrology monitor BP dvt prophylaxis. dc when outpatient HD is arranged. dc to detention today Subjective Interval Events: listneing to music Allergies: Coded Allergies: CIPROFLOXACIN (Verified Allergy, Unknown, 09/17/17) PENICILLINS (Verified Allergy, Unknown, 09/20/17) tolareted Cefepime Sep 2017 Objective Last 24 Hour Vital Signs Date Time Temp Pulse Resp B/P (MAP) Pulse Ox O2 Delivery O2 Flow Rate FiO2 09/29/17 16:00 97.5 73 18 135/70 98 Room Air 09/29/17 13:40 Room Air 2.0 21 09/29/17 12:00 97.7 65 18 155/81 97 Room Air 09/29/17 08:00 97.5 69 18 146/75 98 Room Air 09/29/17 07:15 64 18 Room Air 21 09/29/17 04:00 97.2 62 20 159/80 96 Room Air 09/29/17 00:00 97.6 65 18 130/71 100 09/28/17 20:00 97.4 64 19 132/77 100 Room Air 09/28/17 19:35 68 18 Room Air 21 Intake and Output 09/28/17 09/29/17 19:00 07:00 Intake Total 720 ml 120 ml Output Total 400 ml 200 ml Balance 320 ml -80 ml Intake Oral 720 ml 120 ml Output Urine Total 400 ml 200 ml # Voids 2 # Bowel Movements 1 Objective General Appearance: no acute distress HEENT: normocephalic, atraumatic Respiratory/Chest: lungs clear, no respiratory distress, no accessory muscle use Cardiovascular: normal rate, no JVD, CL-femoral intact Abdomen: normal bowel sounds, soft, non tender Extremities: no edema Neurologic/Psychiatric: alert, responsive Musculoskeletal: normal muscle bulk Laboratory Tests 09/29/17 05:25: White Blood Count 18.9H, Red Blood Count 2.77L, Hemoglobin 9.6L, Hematocrit 28.4L, Mean Corpuscular Volume 103H, Mean Corpuscular Hemoglobin 34.8H, Mean Corpuscular Hemoglobin Concent 33.9, Red Cell Distribution Width 17.3H, Platelet Count 200, Mean Platelet Volume 7.9, Neutrophils (%) (Auto) , Lymphocytes (%) (Auto) , Monocytes (%) (Auto) , Eosinophils (%) (Auto) , Basophils (%) (Auto) , Differential Total Cells Counted 100, Neutrophils % ( Manual) 76H, Lymphocytes % (Manual) 13L, Monocytes % (Manual) 9, Eosinophils % ( Manual) 1, Basophils % (Manual) 1, Band Neutrophils 0, Platelet Estimate Adequate, Platelet Morphology Normal, Polychromasia 1+, Hypochromasia 2+, Anisocytosis 1+, Macrocytosis 1+, Sodium Level 141, Potassium Level 3.7, Chloride Level 104, Carbon Dioxide Level 31, Anion Gap 6, Blood Urea Nitrogen 72H, Creatinine 4.8H, Estimat Glomerular Filtration Rate , Glucose Level 87, Calcium Level 8.6 Current Medications Medications (Trade) Dose Ordered Sig/Jessica Route PRN Reason Start Time Stop Time Status Last Admin Dose Admin Acetaminophen (Tylenol) 650 mg Q6H PRN ORAL Mild Pain/Temp > 100.5 09/17/17 02:15 10/17/17 02:14 Acetaminophen/ Hydrocodone Bitart ([place] 5/325) 1 tab Q6H PRN ORAL Severe Pain (Pain Scale 4-10) 09/23/17 14:15 09/30/17 14:14 Artificial Tears (Akwa-Tears) 2 drop Q2H PRN BOTH EYES Dry Eyes 09/18/17 12:15 10/18/17 12:14 09/20/17 08:47 Aspirin (ASA) 81 mg DAILY ORAL 09/17/17 09:00 10/17/17 08:59 09/29/17 08:30 Benzonatate (Tessalon Perles) 100 mg THREE TIMES A DAY PRN ORAL For Cough 09/18/17 06:45 10/18/17 06:44 09/27/17 09:55 Bupropion HCl (Wellbutrin XL) 150 mg DAILY ORAL 09/17/17 18:00 10/17/17 17:59 09/29/17 08:31 Docusate Sodium (Colace) 100 mg THREE TIMES A DAY ORAL 09/18/17 18:00 10/18/17 17:59 09/28/17 18:19 Dorzolamide/ Timolol (Cosopt) 1 drop BID BOTH EYES 09/18/17 09:00 10/18/17 08:59 09/29/17 08:34 Epoetin Jerod (Procrit (for ESRD on dialysis)) 10,000 units MON-MON-MON SUBQ 09/18/17 21:00 10/18/17 20:59 09/27/17 22:15 Famotidine (Pepcid) 20 mg DAILY ORAL 09/18/17 09:00 10/18/17 08:59 09/29/17 08:31 Heparin Sodium (Porcine) (Heparin 5000 units/ml) 5,000 units EVERY 8 HOURS SUBQ 09/17/17 14:00 10/17/17 13:59 09/28/17 05:57 Mirtazapine (Remeron) 15 mg BEDTIME ORAL 09/17/17 21:00 10/17/17 20:59 09/28/17 21:06 Ondansetron HCl (Zofran) 4 mg Q4H PRN IVP Nausea & Vomiting 09/17/17 02:15 10/17/17 02:14 Sevelamer Carbonate (Renvela) 800 mg THREE TIMES A DAY ORAL 09/18/17 18:00 10/18/17 17:59 09/29/17 12:36 Tamsulosin HCl (Flomax) 0.4 mg BID ORAL 09/18/17 09:00 10/18/17 08:59 09/29/17 08:31 PENNIE CHAMBERLAIN Sep 29, 2017 17:14
--- NOTE | 2017-09-29 18:45 | Internal Med Progress Note ---
Subjective Date of Service: Sep 29, 2017 Physician Name Karma Flores Attending Physician Dung Mustafa MD Current Medications Medications (Trade) Dose Ordered Sig/Jessica Route PRN Reason Start Time Stop Time Status Last Admin Dose Admin Acetaminophen (Tylenol) 650 mg Q6H PRN ORAL Mild Pain/Temp > 100.5 09/17/17 02:15 10/17/17 02:14 Acetaminophen/ Hydrocodone Bitart ([place] 5/325) 1 tab Q6H PRN ORAL Severe Pain (Pain Scale 4-10) 09/23/17 14:15 09/30/17 14:14 Artificial Tears (Akwa-Tears) 2 drop Q2H PRN BOTH EYES Dry Eyes 09/18/17 12:15 10/18/17 12:14 09/20/17 08:47 Aspirin (ASA) 81 mg DAILY ORAL 09/17/17 09:00 10/17/17 08:59 09/29/17 08:30 Benzonatate (Tessalon Perles) 100 mg THREE TIMES A DAY PRN ORAL For Cough 09/18/17 06:45 10/18/17 06:44 09/27/17 09:55 Bupropion HCl (Wellbutrin XL) 150 mg DAILY ORAL 09/17/17 18:00 10/17/17 17:59 09/29/17 08:31 Docusate Sodium (Colace) 100 mg THREE TIMES A DAY ORAL 09/18/17 18:00 10/18/17 17:59 09/28/17 18:19 Dorzolamide/ Timolol (Cosopt) 1 drop BID BOTH EYES 09/18/17 09:00 10/18/17 08:59 09/29/17 17:52 Epoetin Jerod (Procrit (for ESRD on dialysis)) 10,000 units MON-WED-MON SUBQ 09/18/17 21:00 10/18/17 20:59 09/27/17 22:15 Famotidine (Pepcid) 20 mg DAILY ORAL 09/18/17 09:00 10/18/17 08:59 09/29/17 08:31 Heparin Sodium (Porcine) (Heparin 5000 units/ml) 5,000 units EVERY 8 HOURS SUBQ 09/17/17 14:00 10/17/17 13:59 09/28/17 05:57 Mirtazapine (Remeron) 15 mg BEDTIME ORAL 09/17/17 21:00 10/17/17 20:59 09/28/17 21:06 Ondansetron HCl (Zofran) 4 mg Q4H PRN IVP Nausea & Vomiting 09/17/17 02:15 10/17/17 02:14 Sevelamer Carbonate (Renvela) 800 mg THREE TIMES A DAY ORAL 09/18/17 18:00 10/18/17 17:59 09/29/17 17:51 Tamsulosin HCl (Flomax) 0.4 mg BID ORAL 09/18/17 09:00 10/18/17 08:59 09/29/17 17:52 Allergies: Coded Allergies: CIPROFLOXACIN (Verified Allergy, Unknown, 09/17/17) PENICILLINS (Verified Allergy, Unknown, 09/20/17) tolareted Cefepime Sep 2017 ROS Limited/Unobtainable: No Constitutional: Reports: no symptoms HEENT: Reports: no symptoms Cardiovascular: Reports: no symptoms Respiratory: Reports: no symptoms Gastrointestinal/Abdominal: Reports: no symptoms Genitourinary: Reports: no symptoms Neurologic/Psychiatric: Reports: no symptoms Subjective 81 YO M with shortness of breath. Now pneumonia. Cover for Int Med-Dr Mustafa. Await Discharge to [facility] Objective Last Vital Signs Date Time Temp Pulse Resp B/P (MAP) Pulse Ox O2 Delivery O2 Flow Rate FiO2 09/29/17 17:33 Room Air 2.0 21 09/29/17 16:00 97.5 73 18 135/70 98 Laboratory Tests Test 09/29/17 05:25 White Blood Count 18.9 K/UL (4.8-10.8) H Red Blood Count 2.77 M/UL (4.70-6.10) L Hemoglobin 9.6 G/DL (14.2-18.0) L Hematocrit 28.4 % (42.0-52.0) L Mean Corpuscular Volume 103 FL (80-99) H Mean Corpuscular Hemoglobin 34.8 PG (27.0-31.0) H Mean Corpuscular Hemoglobin Concent 33.9 G/DL (32.0-36.0) Red Cell Distribution Width 17.3 % (11.6-14.8) H Platelet Count 200 K/UL (150-450) Mean Platelet Volume 7.9 FL (6.5-10.1) Neutrophils (%) (Auto) % (45.0-75.0) Lymphocytes (%) (Auto) % (20.0-45.0) Monocytes (%) (Auto) % (1.0-10.0) Eosinophils (%) (Auto) % (0.0-3.0) Basophils (%) (Auto) % (0.0-2.0) Differential Total Cells Counted 100 Neutrophils % (Manual) 76 % (45-75) H Lymphocytes % (Manual) 13 % (20-45) L Monocytes % (Manual) 9 % (1-10) Eosinophils % (Manual) 1 % (0-3) Basophils % (Manual) 1 % (0-2) Band Neutrophils 0 % (0-8) Platelet Estimate Adequate Platelet Morphology Normal Polychromasia 1+ Hypochromasia 2+ Anisocytosis 1+ Macrocytosis 1+ Sodium Level 141 MMOL/L (136-145) Potassium Level 3.7 MMOL/L (3.5-5.1) Chloride Level 104 MMOL/L (98-107) Carbon Dioxide Level 31 MMOL/L (21-32) Anion Gap 6 mmol/L (5-15) Blood Urea Nitrogen 72 mg/dL (7-18) H Creatinine 4.8 MG/DL (0.55-1.30) H Estimat Glomerular Filtration Rate mL/min (>60) Glucose Level 87 MG/DL (74-106) Calcium Level 8.6 MG/DL (8.5-10.1) Intake and Output 09/28/17 09/29/17 19:00 07:00 Intake Total 720 ml 120 ml Output Total 400 ml 200 ml Balance 320 ml -80 ml Intake Oral 720 ml 120 ml Output Urine Total 400 ml 200 ml # Voids 2 # Bowel Movements 1 Objective General Appearance: WD/WN, no apparent distress, alert, mild distress EENT: PERRL/EOMI, normal ENT inspection, TMs normal Neck: non-tender, normal alignment, supple, normal inspection Cardiovascular: normal peripheral pulses, normal rate, regular rhythm, no gallop/murmur, no JVD Respiratory/Chest: chest wall non-tender, no respiratory distress, no accessory muscle use, crackles/rales, rhonchi - bilaterally, expiratory wheezing Abdomen: normal bowel sounds, non tender, soft, no organomegaly, no mass Extremities: normal range of motion Neurologic: echocardiograph tech II-XII grossly normal, no motor/sensory deficits Skin: normal pigmentation, warm/dry Assessment/Plan Problem List: (1) Shortness of breath Assessment & Plan: See pulmonary note. Continue albuterol nebs and IV solumedrol (2) ESRD (end stage renal disease) on dialysis (3) Leukocytosis Assessment & Plan: Worsening on steroids cont abx per ID (4) HTN (hypertension) (5) Depression Assessment & Plan: Continue mirtazipime (6) Pneumonia Assessment & Plan: Continue cefepime-see ID note. Assessment/Plan D/C plan: [facility] KARMA Little Sep 29, 2017 18:45
[2017-09-29 20:00] VITALS: BP 140/73
[2017-09-29] MEDS: Epogen (for ESRD on dialysis) SUBQ SCH (21:47)
[2017-09-29] MEDS ORDERED: NS 500ML ONE (22:19)
--- NOTE | 2017-09-30 19:07 | General Progress Note ---
Assessment/Plan Status: stable Subjective Date patient seen: Sep 28, 2017 Neurologic/Psychiatric: Reports: anxiety, depressed, emotional problems Allergies: Coded Allergies: CIPROFLOXACIN (Verified Allergy, Unknown, 09/17/17) PENICILLINS (Verified Allergy, Unknown, 09/20/17) tolareted Cefepime Sep 2017 Objective Last 24 Hour Vital Signs Date Time Temp Pulse Resp B/P (MAP) Pulse Ox O2 Delivery O2 Flow Rate FiO2 09/29/17 20:00 97.9 75 20 140/73 98 Room Air Intake and Output 09/29/17 09/30/17 19:00 07:00 Intake Total 700 ml Output Total 2200 ml Balance -1500 ml Intake Oral 700 ml Output Urine Total 1000 ml Hemodialysis UF 1200 ml Height (Feet): 5 Height (Inches): 11.00 Weight (Pounds): 201 General Appearance: no apparent distress, alert Trudi Escobar M.D. Sep 30, 2017 19:07
--- NOTE | 2017-09-30 19:08 | General Progress Note ---
Assessment/Plan Status: stable, progressing Subjective Date patient seen: Sep 29, 2017 Neurologic/Psychiatric: Reports: anxiety, depressed, emotional problems Allergies: Coded Allergies: CIPROFLOXACIN (Verified Allergy, Unknown, 09/17/17) PENICILLINS (Verified Allergy, Unknown, 09/20/17) tolareted Cefepime Sep 2017 Objective Last 24 Hour Vital Signs Date Time Temp Pulse Resp B/P (MAP) Pulse Ox O2 Delivery O2 Flow Rate FiO2 09/29/17 20:00 97.9 75 20 140/73 98 Room Air Intake and Output 09/29/17 09/30/17 19:00 07:00 Intake Total 700 ml Output Total 2200 ml Balance -1500 ml Intake Oral 700 ml Output Urine Total 1000 ml Hemodialysis UF 1200 ml Height (Feet): 5 Height (Inches): 11.00 Weight (Pounds): 201 General Appearance: no apparent distress, alert Neurologic: alert, oriented x 3, responsive, depressed affect Trudi Escobar M.D. Sep 30, 2017 19:08
--- NOTE | 2017-10-02 07:48 | Discharge Summary ---
Discharge Summary Hospital Course Date of Admission Sep 16, 2017 at 22:41 Date of Discharge Sep 29, 2017 at 22:20 Admitting Diagnosis HPI Ang Louis is a 81 year old male who was admitted on Sep 16, 2017 at 22:41 for Pneumonia/Droplet Hospital Course dc summary #[id number] Discharge Medications Continued Medications: Aspirin (Aspirin) 81 Mg Tab.chew 81 MG PO DAILY, TAB Benzonatate* (Benzonatate*) 100 Mg Capsule 100 MG ORAL THREE TIMES A DAY PRN for For Cough, PERLE Bupropion Xl* (Bupropion Xl*) 150 Mg Tab.er.24h 150 MG ORAL Q24H, TAB 0 Refills Carboxymethylcellulose Sodium (Refresh Tears) 15 Ml Drops 15 ML OP, ML Dorzolamide HCl/Timolol Maleat (Dorzolamide-Timolol Eye Drops) 10 Ml Drops 1 DROP BOTH EYES, ML Famotidine (Famotidine) 20 Mg Tablet 20 MG ORAL DAILY, #30 TAB 0 Refills Guaifenesin* (Guaifenesin) 100 Mg/5 Ml Liquid 10 ML ORAL Q4H PRN for For Cough, #120 ML 0 Refills Ipratropium/Albuterol Sulfate (DuoNeb 0.5-3(2.5)mg/3ml) 3 Ml Ampul.neb 3 ML HHN EVERY 4 HOURS PRN for Shortness of breath, EA Paricalcitol (Zemplar) 1 Mcg Capsule 1 MCG ORAL DAILY for 30 Days, MCG 0 Refills Sevelamer Carbonate* (Renvela*) 0.8 Gm Powd.pack 800 MG ORAL THREE TIMES A DAY, PACK Tamsulosin Hcl (Tamsulosin Hcl*) 0.4 Mg Cap.er.24h 0.4 MG ORAL BID, CAP [Non] () Discharge Condition Upon Discharge: stable Discharge Disposition Patient was discharged to SNF/Subacute Facility(03) Discharge Diagnoses: Azar (Rigoberto)Suzy NP Oct 02, 2017 07:48
--- NOTE | 2017-10-02 15:15 | Discharge Summary 2 SIG ---
DATE OF ADMISSION: 09/16/2017 DATE OF DISCHARGE: 09/29/2017 REASON FOR ADMISSION: An 81-year-old male, resident of the senior living facility with past medical history significant for hypertension, depression, and end stage renal disease, recently started of hemodialysis (in mid August), was brought initially to [place] emergency room with complaints of shortness of breath and cough. He was diagnosed with left lower lobe pneumonia and was transferred to [facility] for insurance purposes. ADMITTING DIAGNOSES: 1. Left lower lobe pneumonia. 2. End-stage renal disease. HOSPITAL COURSE: The patient was admitted. ID and Pulmonology were consulted. Supplemental oxygen was provided as needed to keep saturation above 92%. Pulmonary toilet was provided. The patient was started on empiric antibiotics. Sputum culture was negative. Blood culture were4 negative. Urinalysis was negative. The patient demonstrated acute bronchospasm and was on IV steroids for a short time, which were discontinued in few days. The patient noted to have leukocytosis upon initial presentation, leukocytosis as trending down. ID closely followed. As mentioned above, blood culture were negative. Echocardiogram revealed preserved ejection fraction and no evidence of vegetation. CT of the chest, abdomen, and pelvis revealed no evidence of infection. Per ID specialist, leukocytosis, which worsened after steroids was still elevated prior to initiation of steroids, finaly improving. No clear source of infection. ID recommended to monitor the patient off antibiotics unless the fever occurs. Last chest x-ray revealed no radiographic evidence of pneumonia. The patient status post treatment with azithromycin for five days and cefepime for seven days. WBC trending down. ID cleared for discharge. Hemodialysis was performed as per funnel setter orders. Electrolytes and renal parameters were closely monitored and corrected as needed. The patient with a diagnosis of hypertension. Initially was hypotensive . When blood pressure stabilized, needed management of high blood pressure, which was done as per funnel setter. Psychiatrist followed regarding psychiatric medication regimen. The patient was continued on his current regimen and remained with stable mood and behavior. Anemia workup was consistent with anemia of chronic disease. The patient was on Epogen, hemoglobin and hematocrit remained stable. No need for transfusion. Stool for OB was negative. Bowel regimen instituted. DVT and GI prophylaxis provided. The patient was stable for discharge. FINAL DIAGNOSES: 1. Left lower lobe pneumonia. 2. Acute bronchospasm, resolved. 3. End-stage renal disease, on hemodialysis. 4. Hypertension. 5. Depression. 6. Anemia of chronic disease. 7. Leukocytosis. DISCHARGE MEDICATIONS: See medication reconciliation list. DISCHARGE INSTRUCTIONS: The patient discharged to [facility]. Follow up with medical doctor at the facility. Dung Mustafa M.D. Suzy [facility] Campus[facility] NJuan Luis DR: PARISA JOB#: [id number] CC: EM
== END 2017-09-29 22:20 | DRG 193 ==
LOC: 4E 22:41
PROC: 5A1D70Z Performance of Urinary Filtration, Intermittent, Less than 6 Hours Per Day (ICD-10-PCS; principal; 2017-09-18)
DX: J18.9 Pneumonia, unspecified organism (principal); N18.6 End stage renal disease; I95.9 Hypotension, unspecified; I12.0 Hypertensive chronic kidney disease with stage 5 chronic kidney disease or end stage renal disease; D63.1 Anemia in chronic kidney disease; Z99.2 Dependence on renal dialysis; D72.829 Elevated white blood cell count, unspecified; F32.9 Major depressive disorder, single episode, unspecified; Z85.46 Personal history of malignant neoplasm of prostate; K59.00 Constipation, unspecified; J98.01 Acute bronchospasm
CPT/HCPCS: 36415; 71045; 71046; 71260; 74018; 74177; 76700; 76775; 80048; 80053; 80076; 81001; 82270; 82378; 82465; 82550; 82607; 82728; 82746; 83036; 83540; 83550; 83615; 83735; 83880; 84100; 84133; 84300; 84484; 84550; 85007; 85025; 85044; 85060; 85610; 85651; 85730; 86140; 86710; 87040; 87070; 87081; 87086; 87205; 89050; 93005; 93306; 94640; 94664; 94760; J7620